=== PATIENT | female | born 1960 | race Caucasian/White ===

== ENCOUNTER 2017-11-01 10:30 | Outpatient (RCR) | payer OTHER, SELFPAY | END 2017-11-01 23:59 | LOC: PT 10:30 | PROVIDERS: Visit Provider Nurse Practitioner | DX: M54.2 Cervicalgia (principal); M25.511 Pain in right shoulder | CPT/HCPCS: 97010; 97012; 97014; 97035; 97110; 97140; 97161; G0283 ==

== ENCOUNTER 2017-11-07 08:30 | Outpatient (RCR) | payer OTHER, SELFPAY | END 2017-11-07 23:59 | LOC: PT 08:30 | PROVIDERS: Visit Provider Nurse Practitioner | DX: M54.2 Cervicalgia (principal); M25.511 Pain in right shoulder | CPT/HCPCS: 97010; 97012; 97014; 97033; 97035; 97140; G0283 ==

== ENCOUNTER 2017-11-09 20:02 | Emergency (ER) | payer OTHER, SELFPAY ==
[2017-11-09 20:37] VITALS: BP 156/98; PULSE 114; RESP 20; TEMP 36.6; O2SAT 97; BMI 40.4
[2017-11-09 20:49] LABS: UTC Influenza A Antigen Negative (Negative); UTC Influenza B Antigen Negative (Negative)
--- NOTE | 2017-11-09 21:11 | HMH.EDUTC ---
[facility] – [place] Disposition Clinical Impression: Viral illness Disposition: Home, Self-Care Condition on Discharge: Good Instructions: DI for Viral Syndrome Additional Instructions: * No sign of bacterial infection. Likely viral. Flu negative. Virus can take 7-14 days to run their course * Monitor Temp. Tylenol every 4 hours as needed no more then 5 times a day or 4000mg in 24 hours and/or ibuprofen every 6 hours as needed no more then 3200mg in 24 hours (as long as your primary care doctor has told you that it is ok to take both) for fever/aches/pain. ER if fever no less than 101 despite tylenol and ibuprofen * Encourage fluids, water, gatorade, powerade, pedialyte if infant/toddler/child * warm salt water gargles * warm fluids * sore throat lozenges * sleep elevated * humidifier/vaporizer * Claritin 10mg daily may help w/ fluid behind ear * * Your throat swab was sent for culture. Those results are typically sent to your primary care. Be sure to follow up in 2-3 days if no improvement so they can review those results and treat if necessary. If you don't have primary care, I recommend you get one but in the mean time, you will have to return to a walk in clinic Referrals: Ray Lopez MD [Primary Care Provider] - (IMMEDIATELY for new or worsening symptoms OR no noticeable improvement over the next 48-72 hours. 911 for difficulty breathing or swallowing.) Time of Disposition: 21:36 Medical Decision Making Vital Signs: 11/09/17 20:37 Temperature 97.8 F Temperature Source Temporal Artery Scan Pulse Rate [Brachial] 114 H Respiratory Rate 20 Blood Pressure [Left Arm] 156/98 Blood Pressure Mean [Left Arm] 117 Blood Pressure Source [Left Arm] Automatic Cuff Blood Pressure Position [Left Arm] Sitting 02 Sat by Pulse Oximetry 97 Oxygen Delivery Method Room Air - Lab Data Lab Results 11/09/17 20:42: Influenza Type A Ag Negative, Influenza Type B Ag Negative - Matty Inquiry Pt receiving controlled substance: No [facility] [place] HPI - General Stated complaint: Congestion, aching all over Time Seen by Provider: 11/09/17 20:40 Mode of Arrival: Ambulatory Source of Information: Patient Limitations: No Limitations Description of Symptoms (Recalled from Triage Doc. by RN): ACHES,CHILLS, SORE THROAT AND EAR PAIN HEENT Symptoms (Recalled from RN notes): Yes Resp Symptoms (Recalled from RN notes): Yes Skin Symptoms (Recalled from RN notes): No MS Symptoms (Recalled from RN notes): No Functional Status (Recalled from RN notes): NA - History of Present Illness Provider Complaint: c/o right ear and throat pain. I think it might be sinuses but want to rule out flu and strep . Woke up with this today. No treatment. Throat constantly sore all day. Described as just feel like drainage running down it . Feeling achy tonight but also aches d/t a pinch nerve. this feels different though. I don't normally chill like this evening. No known sick contacts. - Related Data Home Medications Medication Instructions Recorded Confirmed Ixekizumab [Taltz Syringe] 80 mg SQ MONTHLY 11/09/17 11/09/17 Allergies Allergy/AdvReac Type Severity Reaction Status Date / Time PREDNISONE Allergy Unknown MAKES Uncoded 10/22/17 14:29 PSORIASIS WORSE - Worker's Comp Is this a Worker's Comp case?: No [facility] History I have reviewed the patient's past medical history: Yes Medical History: Denies:: Chronic Obstructive Pulmonary Disease (COPD), Diabetes Mellitus Type 1, Diabetes Mellitus Type 2, Hypertension Comment: psoriatic arthritis Other Surgeries: Yes: Other (hysterectomy) - *Social History Alcohol Intake: never - Psychiatric History Expresses thoughts of harming self/others: None Suicide Plan Description: No Plan ROS Obtained: Yes Appropriate systems reviewed & no add complaints except as noted - Constitutional Reports body ache(s), Reports chills, Denies anorexia, Denies fatigue, Denies fever(s) - Eyes Denies dischar
--- NOTE | 2017-11-09 21:16 | ED_ITS ---
[facility] [place] Clinical Impression: Viral illness Disposition: Home, Self-Care Condition on Discharge: Good Instructions: DI for Viral Syndrome Additional Instructions: * No sign of bacterial infection. Likely viral. Flu negative. Virus can take 7- 14 days to run their course * Monitor Temp. Tylenol every 4 hours as needed no more then 5 times a day or 4000mg in 24 hours and/or ibuprofen every 6 hours as needed no more then 3200mg in 24 hours (as long as your primary care doctor has told you that it is ok to take both) for fever/aches/pain. ER if fever no less than 101 despite tylenol and ibuprofen * Encourage fluids, water, gatorade, powerade, pedialyte if /toddler/ child * warm salt water gargles * warm fluids * sore throat lozenges * sleep elevated * humidifier/vaporizer * Claritin 10mg daily may help w/ fluid behind ear * * Your throat swab was sent for culture. Those results are typically sent to your primary care. Be sure to follow up in 2-3 days if no improvement so they can review those results and treat if necessary. If you don't have primary care , I recommend you get one but in the mean time, you will have to return to a walk in clinic Referrals: Ray Lopez MD [Primary Care Provider] - (IMMEDIATELY for new or worsening symptoms OR no noticeable improvement over the next 48-72 hours. 911 for difficulty breathing or swallowing.) Time of Disposition: 21:36 Medical Decision Making Vital Signs: 11/09/17 20:37 Temperature 97.8 F Temperature Source Temporal Artery Scan Pulse Rate [Brachial] 114 H Respiratory Rate 20 Blood Pressure [Left Arm] 156/98 Blood Pressure Mean [Left Arm] 117 Blood Pressure Source [Left Arm] Automatic Cuff Blood Pressure Position [Left Arm] Sitting 02 Sat by Pulse Oximetry 97 Oxygen Delivery Method Room Air - Lab Data Lab Results 11/09/17 20:42: Influenza Type A Ag Negative, Influenza Type B Ag Negative - Matty Inquiry Pt receiving controlled substance: No [facility] [place] - General Stated complaint: Congestion, aching all over Time Seen by Provider: 11/09/17 20:40 Mode of Arrival: Ambulatory Source of Information: Patient Limitations: No Limitations Description of Symptoms (Recalled from Triage Doc. by RN): ACHES,CHILLS, SORE THROAT AND EAR PAIN HEENT Symptoms (Recalled from RN notes): Yes Resp Symptoms (Recalled from RN notes): Yes Skin Symptoms (Recalled from RN notes): No MS Symptoms (Recalled from RN notes): No Functional Status (Recalled from RN notes): NA - History of Present Illness Provider Complaint: c/o right ear and throat pain. I think it might be sinuses but want to rule out flu and strep . Woke up with this today. No treatment. Throat constantly sore all day. Described as just feel like drainage running down it . Feeling achy tonight but also aches d/t a pinch nerve. this feels different though. I don't normally chill like this evening. No known sick contacts. - Related Data Home Medications Medication Instructions Recorded Confirmed Ixekizumab [Taltz Syringe] 80 mg SQ MONTHLY 11/09/17 11/09/17 Allergies Allergy/AdvReac Type Severity Reaction Status Date / Time PREDNISONE Allergy Unknown MAKES Uncoded 10/22/17 14:29 PSORIASIS WORSE - Worker's Comp Is this a Worker's Comp case?: No [facility] History I have reviewed the patient's past medical history: Yes
[2017-11-09 21:45] LABS: UTC Strep Screen (Rapid) Negative (Negative)
== END 2017-11-09 21:51 | disposition home or self-care (01) ==
PROVIDERS: Emergency Provider Nurse Practitioner Family; PCP Family Medicine
DX: B34.9 Viral infection, unspecified (principal); L40.50 Arthropathic psoriasis, unspecified
CPT/HCPCS: 87276; 87430; 87804; 87880; 99202

== ENCOUNTER → 2017-11-15 09:12 | Outpatient (CLI) | payer OTHER, SELFPAY | PROVIDERS: PCP Family Medicine; Visit Provider Nurse Practitioner | DX: M25.511 Pain in right shoulder (principal) ==

== ENCOUNTER → 2017-11-28 09:25 | Outpatient (CLI) | payer OTHER, SELFPAY ==
--- NOTE | 2017-11-28 09:33 | MR_ITS ---
MR cervical spine wo con HISTORY: Right-sided neck and shoulder and scapular pain ITS.REASON: CERVICALGIA ORDERING PHYSICIAN: Liliana Langford PATIENT AGE: 56 years COMPARISON: None TECHNIQUE: Standard multiplanar multiecho sequences are performed without contrast. 3-D MIP and myelographic images are also rendered and reviewed FINDINGS: There is normal alignment. The craniocervical junction has an unremarkable appearance. C2-C3: Unremarkable. C3-C4: Unremarkable. C4-C5: Unremarkable. C5-C6: Mild degenerative disc disease with minimal bulging disc with minimal central disc protrusion and borderline narrowing of the canal. No cord impingement. C6 C7: Degenerative disc disease with bulging disc with endplate osteophytes. There is bilateral uncovertebral hypertrophy and there is a small broad-based left paracentral disc protrusion/disc osteophyte complex causing left lateral recess and foraminal narrowing. There is a small right lateral foraminal disc protrusion as well best detected on the sagittal images. There is narrowing of the canal at this level. C7-T1: Unremarkable. IMPRESSION: 1. C5-C6: Mild degenerative disc disease with minimal bulging disc with minimal central disc protrusion and borderline narrowing of the canal. No cord impingement. 2. C6 C7: Degenerative disc disease with bulging disc with endplate osteophytes. There is bilateral uncovertebral hypertrophy and there is a small broad-based left paracentral disc protrusion/disc osteophyte complex causing left lateral recess and foraminal narrowing. There is a small right lateral foraminal disc protrusion as well best detected on the sagittal images. There is narrowing of the canal at this level with mild flattening of the anterior aspect of the cord on the left. 3. Otherwise negative MRI of the cervical spine
== END ==
PROVIDERS: PCP Family Medicine; Visit Provider Nurse Practitioner
DX: M54.2 Cervicalgia (principal)
CPT/HCPCS: 72141

== ENCOUNTER → 2018-08-05 08:06 | Outpatient (POV) | payer OTHER, SELFPAY | PROVIDERS: PCP Family Medicine; Visit Provider Dermatology | DX: Z00.00 Encounter for general adult medical examination without abnormal findings (principal) ==

== ENCOUNTER → 2019-02-10 08:05 | Outpatient (POV) | payer OTHER, SELFPAY | PROVIDERS: Visit Provider Dermatology | DX: Z00.00 Encounter for general adult medical examination without abnormal findings (principal) ==

== ENCOUNTER → 2019-03-31 07:54 | Outpatient (POV) | payer OTHER, SELFPAY | PROVIDERS: Visit Provider Dermatology | DX: Z00.00 Encounter for general adult medical examination without abnormal findings (principal) ==

== ENCOUNTER → 2019-08-31 15:54 | Outpatient (CLI) | payer OTHER, SELFPAY ==
--- NOTE | 2019-08-31 15:57 | MM_ITS ---
PROCEDURE: MM DIG SCREENING MAMM BI W/CAD CLINICAL INDICATION: SCREENING There is a history of breast cancer in the patient's maternal aunt. COMPARISON: [facility] DIG MAMM-SCREEN ARMEN from 10/29/2013 [facility] DIG MAMM-SCREEN ARMEN from 09/05/2015 [facility] DIG MAMM-SCREEN ARMEN W/CAD from 08/08/2017 TECHNIQUE: Standard CC and MLO images were obtained. R2 CAD reviewed. FINDINGS: Scattered diffuse fibroglandular densities are seen throughout both breasts. There are few benign-appearing microcalcifications in each breast. There are 2 stable benign-appearing nodular densities near the axillary tail right breast likely low-lying nodes. There is a stable round appearing density just deep to the nipple right breast. There is no suspicious lesion in either breast and no suspicious microcalcifications. IMPRESSION: Fibrofatty parenchyma with no suspicious lesions seen BI-RAD Category: 2 Benign Finding(s) FOLLOW-UP: 1YR 1 Year Follow-up (A letter has been sent to the patient regarding results of the study.) Dictated by: Dr. Abdiel Jane MD 09/02/2019 19:[address] Abdiel Jane MD in [place] 09/02/2019 19:24
== END ==
PROVIDERS: PCP Family Medicine; Visit Provider Family Medicine
DX: Z12.31 Encounter for screening mammogram for malignant neoplasm of breast (principal)
CPT/HCPCS: 77067

== ENCOUNTER 2019-11-03 09:00 | Outpatient (RCR) | payer OTHER, SELFPAY | END 2019-11-03 09:05 | disposition home or self-care (01) | LOC: PT 09:00 | PROVIDERS: PCP Family Medicine; Visit Provider Nurse Practitioner Women's Health | DX: M79.7 Fibromyalgia (principal) | CPT/HCPCS: 97010; 97012; 97014; 97110; 97140; 97163; G0283 ==

== ENCOUNTER → 2020-08-19 16:28 | Outpatient (CLI) | payer OTHER, SELFPAY ==
[2020-08-20 09:40] LABS: Covid-19 Nasal PCR Sendout UK NOT DETECTED
== END ==
PROVIDERS: PCP Family Medicine; Referring Provider Family Medicine; Visit Provider Family Medicine
DX: Z03.818 Encounter for observation for suspected exposure to other biological agents ruled out (principal)
CPT/HCPCS: U0003

== ENCOUNTER → 2020-09-01 08:09 | Outpatient (CLI) | payer OTHER, SELFPAY ==
--- NOTE | 2020-09-01 08:12 | MM_ITS ---
PROCEDURE: MM DIG SCREENING MAMM BI W/CAD Digital Breast Tomosynthesis Included CLINICAL INDICATION: SCREENING There is a history of breast cancer in the patient's maternal aunt. COMPARISON: MG [facility] DIG MAMM-SCREEN ARMEN from 09/05/2015 MG [facility]MSB DIG MAMM-SCREEN ARMEN W/CAD from 08/08/2017 MG MM DIG SCREENING MAMM BI W/CAD from 08/31/2019 TECHNIQUE: Standard CC and MLO images and 3D Tomosynthesis was obtained. R2 CAD reviewed. FINDINGS: Scattered fibroglandular densities are seen throughout both breasts. Again noted are the 2 tiny benign-appearing nodular densities axillary tail right breast. There are couple of benign-appearing microcalcifications left breast. There is faint arterial calcification left breast. There are no suspicious microcalcifications. IMPRESSION: Stable exam with no suspicious lesions seen BI-RAD Category: 2 Benign Finding(s) FOLLOW-UP: 1YR 1 Year Follow-up (A letter has been sent to the patient regarding results of the study.) Dictated by: Dr. Abdiel Jane MD 09/02/2020 09:48 Dr. Abdiel Jane MD in [place] 09/02/2020 09:48
== END ==
PROVIDERS: PCP Family Medicine; Visit Provider Family Medicine
DX: Z12.31 Encounter for screening mammogram for malignant neoplasm of breast (principal)
CPT/HCPCS: 77063; 77067

== ENCOUNTER → 2021-01-26 09:27 | Outpatient (CLI) | payer OTHER, SELFPAY ==
--- NOTE | 2021-01-26 09:31 | CT_ITS ---
PROCEDURE: CT ABDOMEN PELVIS W CON CLINICAL INDICATION: VAGINAL PAIN, S/P BLADDER REPAIR Llq pain x3wks COMPARISON: No exams were available for comparison TECHNIQUE: IV Contrast: 75ML Isovue 370 Oral Contrast None Axial images obtained with sagittal and coronal reformats. All CT scans at the facility use one or more dose reduction, viz: automated exposure control, ma/kV adjustment per patient size (including targeted exams where dose is matched to indication, i.e. head), or iterative reconstruction technique. FINDINGS: LOWER THORAX: There are mild atelectatic changes in the right lower lobe posteriorly ABDOMEN & PELVIS: Small nodular opacity is present anterior to liver at 1 cm may be due to small lymph node within the perihepatic fat. No focal liver lesion is evident. There is a 9 mm nodular area at the tip of the fundus of the gallbladder. Gallbladder ultrasound may provide further evaluation. This could even be due to collapsed mucosa. The spleen and adrenal glands are unremarkable. There are a few periportal lymph nodes measuring up to 3 x 1 cm. Unremarkable appearing pancreas. No renal or ureteral calculi. There is a small right renal cyst at 4 mm. No evidence of appendicitis. No intestinal obstruction or free air. There are a few colonic diverticula but no evidence of diverticulitis. Prior hysterectomy. No pelvic mass or abnormal fluid collection. Tiny umbilical hernia containing fat. No acute bony findings. IMPRESSION: 1. No acute finding. 2. There are few colonic diverticula but no evidence of diverticulitis 3. Nodular area at the fundus of the gallbladder. Suggest ultrasound for further evaluation. 4. Mildly prominent periportal lymph nodes nonspecific. Dictated by: Joe Carlson MD 01/27/2021 06:40 Joe Carlson MD in [place] 01/27/2021 06:40
== END ==
PROVIDERS: PCP Family Medicine; Visit Provider Nurse Practitioner Family
DX: R10.32 Left lower quadrant pain (principal); R10.2 Pelvic and perineal pain; Z98.890 Other specified postprocedural states; Z90.710 Acquired absence of both cervix and uterus
CPT/HCPCS: 74177; Q9967

== ENCOUNTER → 2021-02-07 07:36 | Outpatient (CLI) | payer OTHER, SELFPAY ==
--- NOTE | 2021-02-07 07:54 | US_ITS ---
PROCEDURE: US ABDOMEN LIMITED CLINICAL INDICATION: ABN CT SCAN Follow-up abnormal CT scan. Possible gallbladder nodule COMPARISON: CT CT ABDOMEN PELVIS W CON from 01/26/2021 FINDINGS: PANCREAS: Pancreatic tail is poorly demonstrated. The remaining pancreas has an unremarkable appearance. LIVER: Mild fatty liver. No focal liver lesions demonstrated. Homogeneous echogenicity. No intrahepatic biliary ductal dilatation evident. There is appropriate direction of blood flow within a non dilated portal vein RIGHT KIDNEY: Unremarkable. Normal size and echogenicity. No hydronephrosis GALLBLADDER: No gallstones are apparent. The CT scan suggested a nodule within the fundus of the gallbladder. This may however have been due to collapse mucosa as ultrasound does demonstrate a inferior projection of the gallbladder at this region. There does appear to be some sludge at this area. IMPRESSION: No obvious nodule of the gallbladder. No stones apparent. There does appear to be some sludge within the inferior extension of the gallbladder which may have been the cause of the CT abnormality. Dictated by: Joe Carlson MD 02/09/2021 13:30 Joe Carlson MD in [place] 02/09/2021 13:30
== END ==
PROVIDERS: PCP Family Medicine; Visit Provider Nurse Practitioner Family
DX: R93.89 Abnormal findings on diagnostic imaging of other specified body structures (principal)
CPT/HCPCS: 76705

== ENCOUNTER → 2021-02-25 08:12 | Outpatient (CLI) | payer OTHER, SELFPAY ==
[2021-02-25 11:15] LABS: Coronavirus 19 IgG Antibody Negative (Negative); Coronavirus 19 IgM Antibody Negative (Negative)
== END ==
PROVIDERS: Visit Provider Internal Medicine Gastroenterology
DX: Z01.812 Encounter for preprocedural laboratory examination (principal); Z11.52 Encounter for screening for COVID-19; Z12.11 Encounter for screening for malignant neoplasm of colon
CPT/HCPCS: 36415; 86328

== ENCOUNTER 2021-02-27 09:49 | Day surgery (SDC) | payer OTHER, SELFPAY ==
[2021-02-21 13:08] VITALS: BMI 37.4
[2021-02-27 10:04] VITALS: BP 135/90; PULSE 78; RESP 18; TEMP 36.6; O2SAT 97
--- NOTE | 2021-02-27 11:46 | P.PCN_ITS ---
[facility] Procedure Note Procedure Note:: Colonoscopy Procedure Report: Colonoscopy with cold snare polypectomy and monopolar ablation/coagulation of internal hemorrhoids Endoscopist: Gunner Estrella II, MD Referring physician: ALYX Goodman Date of Procedure: February 27, 2021 Equipment: Olympus 190 variable stiffness pediatric colonoscope Sedation: MAC sedation Indication: Mrs. Maldonado is a 60-year-old female who has had left lower quadrant abdominal pain as well as a change in bowel habits. Her bowel movements are thinner (skinnier). She does have some excessive wiping. She reports no constipation. She has had some intentional weight loss. She does state that her father had colon cancer at the age of 48. She has had some occasional rectal bleeding which may be attributable to the internal hemorrhoids. Her last colonoscopy was 8 to 10 years ago. Procedure: Prior to the procedure, a history and physical exam was performed, and patient's medications and allergies were reviewed. The risks, benefits and alternatives of the sedation and procedure were discussed with the patient. All questions were answered and informed consent was obtained. The patient was brought to the procedure room. Patient identification and proposed procedure were verified by the physician and the nurse. The patient was placed in a left lateral decubitus position and the scope was passed under direct vision. Throughout the procedure, the patient's blood pressure, pulse, and oxygen saturations were monitored continuously. The colonoscopy was accomplished without difficulty. The patient tolerated the procedure well. Findings: On digital rectal examination there was normal rectal tone. There were no external hemorrhoids. The colonoscope was introduced through the anal canal to the rectum and advanced to the cecum. The ileocecal valve and appendiceal orifice were identified. The scope was advanced a short distance into the ileum which appeared grossly normal. The scope was then withdrawn into the colon. There were 2 colon polyps (ascending x1 (3 to 4 mm) and descending (5 mm)) which were removed via cold snare polypectomy. The remaining cecum, ascending and transverse colon and mucosa were grossly normal. There were scattered diverticuli throughout the descending and sigmoid colon (LEFT colon). The rectum itself was normal. Upon retroflexion within the rectum there were grade 2 internal hemorrhoids. 3 columns of hemorrhoids were ablated/coagulated using monopolar ablation to destruction. The preparation was excellent throughout with Redmond Preparation Score of 9. The cecal time was 12 minutes. Impression: 1. Diminutive colonic polyps x2 2. Left-sided diverticulosis 3. Grade 2 internal hemorrhoids status post monopolar ablation/coagulation Plan: I will follow up the polyp histology and recommend repeat screening/surveillance colonoscopy again in 5 years based upon her family history and polyps. I would encourage bulk fiber supplementation on a long-term daily maintenance basis.
[2021-02-27 11:48] VITALS: BP 113/64; PULSE 74; RESP 12; TEMP 36.6; O2SAT 95
[2021-02-27 11:58] VITALS: BP 106/61; PULSE 67; RESP 12; O2SAT 94
[2021-02-27 12:08] VITALS: BP 103/83; PULSE 67; RESP 16; O2SAT 95
[2021-02-27 12:18] VITALS: BP 135/83; PULSE 74; RESP 16; TEMP 36.6; O2SAT 97
--- NOTE | 2021-02-27 15:37 | P.PN_ITS ---
[facility] Anesthesia Checklist - Patient Identification Patient Identification: Arm Band - Structural Data Admitted From: Home Planned Operative Procedure/s: Colonoscopy Consent for Planned Operative Procedure(s) Verified: Yes Verified Documents: Surgical Consent, History and Physical - NPO Status Verified Time NPO: 00:00 - Airway Assessment C-Spine Mobility Assessed: Yes TMJ Mobility Assessed: Yes Dentition: Good Dentition - Neurological Assessment Level of Consciousness: Awake, Alert - Anesthesia Plan Anesthesia Risk discussed: Yes Anesthesia Plan: Verified ASA Class: III Anesthesia Type: MAC [facility] History Medical History: Denies:: Cancer, Chronic Obstructive Pulmonary Disease (COPD), Diabetes Mellitus Type 1, Diabetes Mellitus Type 2, Hypertension, Internal Pacemaker, MRSA, Seizures *Have you ever received a pneumonia vaccine?: Yes *Have you received a flu vaccine this season?: No Anesthesia experience/problems:: None Other Surgeries: Yes: Other. No: Pacemaker Amputation: No Fractures: No - *Social History Last grade of school completed: Advanced degree Smoking Status: Never smoker Alcohol Intake: never Alcohol Intake Frequency:: holidays/special occasions only Substance Use Type: denies use *Occupational Status:: employed Housing: house Household Members: spouse *Travel in the last 8 weeks: None Family Hx:: Cancer
== END 2021-02-27 12:19 | disposition home or self-care (01) ==
LOC: OUTP 09:51
PROVIDERS: PCP Nurse Practitioner Family; Visit Provider Internal Medicine Gastroenterology
PROC: 0DJD8ZZ Inspection of Lower Intestinal Tract, Via Natural or Artificial Opening Endoscopic (ICD-10-PCS; CPT 45378; principal; 2021-02-27 11:00)
DX: Z80.0 Family history of malignant neoplasm of digestive organs (principal); K63.5 Polyp of colon; K57.30 Diverticulosis of large intestine without perforation or abscess without bleeding; K64.1 Second degree hemorrhoids; F41.9 Anxiety disorder, unspecified; Z79.899 Other long term (current) drug therapy
CPT/HCPCS: 45385; 46930

== ENCOUNTER 2022-01-28 22:18 | Emergency (ER) | payer OTHER, SELFPAY ==
[2022-01-28 22:19] VITALS: BP 132/75; PULSE 88; RESP 18; TEMP 36.4; O2SAT 98; BMI 41.1
--- NOTE | 2022-01-28 22:53 | CT_ITS ---
PROCEDURE INFORMATION: Exam: CT Abdomen And Pelvis With Contrast Exam date and time: 01/28/2022 11:39 PM Age: 61 years old Clinical indication: Nausea and vomiting and other: Diarrhea; Prior surgery; Surgery date: 6+ months; Surgery type: Hysterectomy; Additional info: Abdominal pain nausea vomiting diarrhea TECHNIQUE: Imaging protocol: Computed tomography of the abdomen and pelvis with contrast. Radiation optimization: All CT scans at this facility use at least one of these dose optimization techniques: automated exposure control; mA and/or kV adjustment per patient size (includes targeted exams where dose is matched to clinical indication); or iterative reconstruction. Contrast material: ISOVUE; Contrast volume: 75 ml; Contrast route: IV; COMPARISON: CT ABDOMEN PELVIS W CON 01/26/2021 9:42 AM FINDINGS: Lungs: 0.4 cm solid nodule in the left lower lobe. Bibasilar probable atelectasis. Liver: No suspicious mass. Gallbladder and bile ducts: No calcified stones. No ductal dilation. Pancreas: No ductal dilation. No peripancreatic inflammatory changes. Spleen: Unremarkable. Adrenal glands: No mass. Kidneys and ureters: No hydronephrosis. Unremarkable renogram. Stomach and bowel: Colonic diverticulosis without evidence of acute diverticulitis. Appendix: The appendix is not identified, but there is no pericecal inflammatory changes. Intraperitoneal space: No free air. No ascites. Vasculature: Atherosclerotic calcifications. Lymph nodes: No enlarged lymph nodes. Urinary bladder: Small amount of air in the urinary bladder, probably due to instrumentation. Reproductive: Hysterectomy. Bones/joints: No suspicious osseous lesion. No acute fracture. Scattered degenerative changes. Soft tissues: No suspicious mass. IMPRESSION: No CT evidence of acute intra-abdominal process. 0.4 cm solid nodule in the left lower lobe. For patients at low risk (minimal or absent history of smoking and of other known risk factors), no routine follow-up is indicated. For patients at high risk (history of smoking or of other known risk factors), consider optional CT Chest at 12 months. (Reference: Angie) References: Angie López et al. Guidelines for Management of Incidental Pulmonary Nodules Detected on CT Images: From the Fleischner Society 2017. Radiology. 2017;284(1):228-243.
[2022-01-28 22:56] LABS: Microscopic, Urine URINE MICROSCOPIC (MICROSCOPIC)
--- NOTE | 2022-01-28 23:07 | HMH.EDNVD ---
ED Disposition Clinical Impression: Abdominal pain Qualifiers: Abdominal location: epigastric Qualified Code(s): R10.13 - Epigastric pain Leukocytosis (leucocytosis) Qualifiers: Leukocytosis type: unspecified Qualified Code(s): D72.829 - Elevated white blood cell count, unspecified Disposition: Home, Self-Care Condition on Discharge: Good Instructions: DI for Nausea -- Adult Additional Instructions: call pcp and consider egd and gb eval Prescriptions: Ondansetron [Zofran 4mg ODT] 4 mg PO TIDP PRN #30 tab PRN Reason: Nausea And Vomiting Transmission Status: Pending to [facility] Referrals: Inez Hart APRN [Primary Care Provider] - - Critical Care Critical Care Time: No Attestation: On 01/28/22, the high probability of a clinically significant, sudden or life threatening deterioration of the following system(s) required my full and direct attention, intervention and personal management. The time I documented below is in addition to time spent performing reported procedures but includes the following listed in this critical care notation. Medical Decision Making - Medical Records Medical records reviewed: Yes: I reviewed the patient's medical records. - Matty Inquiry Pt receiving controlled substance: No Vital Signs: 01/28/22 22:19 01/28/22 23:30 01/29/22 00:00 Temperature 97.6 F Temperature Source Oral Pulse Rate 86 86 Pulse Rate [Left Radial] 88 Respiratory Rate 18 Blood Pressure 124/87 132/81 Blood Pressure [Right Arm] 132/75 Blood Pressure Mean [Right Arm] 94 Blood Pressure Position [Right Arm] Sitting 02 Sat by Pulse Oximetry 98 98 99 Oxygen Delivery Method Room Air Room Air Room Air 01/29/22 00:31 01/29/22 01:00 01/29/22 01:30 Temperature Temperature Source Pulse Rate 81 84 78 Pulse Rate [Left Radial] Respiratory Rate Blood Pressure 145/74 H 129/69 146/81 H Blood Pressure [Right Arm] Blood Pressure Mean [Right Arm] Blood Pressure Position [Right Arm] 02 Sat by Pulse Oximetry 97 98 98 Oxygen Delivery Method Room Air Room Air Room Air - Lab Data Lab results reviewed: Yes: I reviewed the patient's lab results. Lab Results 01/28/22 22:37: Urine Color Yellow, Urine Appearance Clear, Urine pH 5.5, Ur Specific Mal[place] >= 1.030, Urine Protein Trace, Urine Glucose (UA) Negative, Urine Ketones Negative, Urine Blood Negative, Urine Nitrate Negative, Urine Bilirubin Negative, Urine Urobilinogen 0.2, Ur Leukocyte Esterase Negative, Urine WBC 3-5, Ur Squamous Epith Cells 10-20 01/28/22 22:46: WBC 20.5 H*, RBC 6.01 H, Hgb 15.9, Hct 49.1 H, MCV 81.8, MCH 26.5 L, MCHC 32.3, RDW 14.6, Plt Count 493 H, MPV 8.0, Neut % (Auto) 78.5, Lymph % (Auto) 17.8, [place] % (Auto) 2.6, Eos % (Auto) 0.5, Baso % (Auto) 0.6, Neut # (Auto) 16.1 H, Lymph # (Auto) 3.6, [place] # (Auto) 0.5, Eos # (Auto) 0.1, Baso # (Auto) 0.1, Total Counted 100, Neutrophils % (Manual) 78 H, Band Neutrophils % 6.0, Lymphocytes % (Manual) 14, Monocytes % (Manual) 2, Platelet Estimate Normal, RBC Morphology Normal, ESR 5 01/28/22 22:46: Sodium 138, Potassium 3.8, Chloride 101, Carbon Dioxide 26, Anion Gap 14.8, BUN 14, Creatinine 0.80, Estimated Creat Clear 102, Estimated GFR 73, Est GFR ( Amer) 88, Glucose 160 H, Calcium 9.3, Total Bilirubin 0.8, AST 25, ALT 20, Alkaline Phosphatase 107, C-Reactive Protein 20.2 H, Total Protein 8.2, Albumin 4.5, Globulin 3.7 H, Albumin/Globulin Ratio 1.2, Procalcitonin 0.059 01/28/22 22:46: Amylase 79, Lipase 93 Result diagrams: 01/28/22 22:46 01/28/22 22:46 Orders (Tests/Meds): ED MEDICATIONS Generic Name Dose Route Start Last Admin Trade Name Freq PRN Reason Stop Dose Admin Sodium Chloride 1,000 mls @ 999 mls/hr 01/28/22 23:00 01/28/22 23:14 Sod Chlor 0.9% 1000ml Bag IV 01/29/22 00:00 999 mls/hr .Q1H1M SALLY Administration Sodium Chloride 1,000 mls @ 999 mls/hr 01/28/22 23:45 01/29/22 00:59 Sod Chlor 0.9% 1000ml Bag IV
[2022-01-28 23:11] LABS: Appearance,Urine CLEAR (Clear); Bilirubin,Urine Negative (Negative); Blood, Urine Negative (Negative); Color,Urine YELLOW (Yellow); Glucose,Urine (UA) Negative (Negative); Ketones,Urine Negative (Negative); Leukocyte Esterase,Urine Negative (Negative); Nitrate,Urine Negative (Negative); PH,Urine 5.5 (5.0-8.5); Protein,Urine TRACE (Negative); Specific Gravity, Urine >= 1.030 (1.005-1.030); Urobilinogen,Urine 0.2 EU/dl (0.2)
[2022-01-28 23:22] LABS: Basophils # 0.1 K/mm3 (0-0.2); Basophils % 0.6 % (0.1-2.0); Eosinophils # 0.1 K/mm3 (0.0-0.4); Eosinophils % 0.5 % (0.1-12.0); Hematocrit 49.1 % (37.0-47.0); Hemoglobin 15.9 g/dL (12.2-16.2); Lymphocytes # 3.6 K/mm3 (0.7-4.5); Lymphocytes % 17.8 % (10-50); Mean Corpuscular HGB Conc 32.3 g/dL (31.8-35.4); Mean Corpuscular Hemoglobin 26.5 pg (27.0-31.2); Mean Corpuscular Volume 81.8 fl (81-99); Monocytes # 0.5 K/mm3 (0.1-1.0); Monocytes % 2.6 % (1.7-9.3); Neutrophils # 16.1 K/mm3 (1.8-7.8); Neutrophils % 78.5 % (37.0-80.0); Platelet Count 493 K/mm3 (142-424); Red Blood Count 6.01 M/mm3 (4.20-5.40); Red Cell Distribution Width 14.6 % (11.5-17.5)
[2022-01-28 23:28] LABS: White Blood Count 20.5 K/mm3 (4.8-10.8)
[2022-01-28 23:29] LABS: MANUAL DIFFERENTIAL MANUAL DIFFERENTIAL (MANUAL DIFF)
[2022-01-28 23:30] VITALS: BP 124/87; PULSE 86; O2SAT 98
[2022-01-28 23:34] LABS: Alanine Aminotransferase 20 U/L (12-78); Albumin Level 4.5 g/dl (3.5-5.0); Albumin/Globulin Ratio 1.2 (1.1-1.8); Alkaline Phosphatase 107 U/L (38-126); Anion Gap 14.8 mEq/L (5-15); Aspartate Amino Transferase 25 U/L (14-36); Bilirubin,Total 0.8 mg/dl (0.2-1.3); Blood Urea Nitrogen 14 mg/dl (7-17); Calcium 9.3 mg/dl (8.4-10.2); Carbon Dioxide 26 mmol/L (22.0-30.0); Chloride 101 mmol/L (98-107); Creatinine Clearance Estimated 102 mL/min (50-200); Estimated Glomerular Filt Rate 73 ml/min (>60); GFR (African American) 88 ML/MIN (>60); Globulin 3.7 g/dL (1.3-3.2); Glucose 160 mg/dl (74-100); Potassium 3.8 mmoL/L (3.5-5.1); Sodium 138 mmol/L (136-145); Total Protein,Serum 8.2 g/dl (6.3-8.2)
[2022-01-28 23:40] LABS: C-Reactive Protein 20.2 mg/L (0-4); Lymphocytes % 14 % (10-50); Monocytes % 2 % (2-9); Neutrophils % 78 % (42-76); Platelet Estimate Normal; RBC Morphology Normal; Total Cells Counted 100
[2022-01-28 23:53] LABS: Amylase 79 U/L (30-110); Lipase 93 U/L (23-300)
[2022-01-28 23:59] LABS: Erythrocyte Sedimentation Rate 5 mm/hr (0-30)
[2022-01-29] VITALS: BP 132/81; PULSE 86; O2SAT 99
[2022-01-29 00:31] VITALS: BP 145/74; PULSE 81; O2SAT 97
[2022-01-29 00:39] LABS: Procalcitonin 0.059 ng/mL (0.0-2.0)
[2022-01-29 01:00] VITALS: BP 129/69; PULSE 84; O2SAT 98
[2022-01-29 01:30] VITALS: BP 146/81; PULSE 78; O2SAT 98
[2022-01-29 02:00] VITALS: BP 144/80; PULSE 81; O2SAT 98
[2022-01-29 02:31] VITALS: BP 154/73; PULSE 85; RESP 18; TEMP 36.8; O2SAT 98
== END 2022-01-29 02:34 | disposition home or self-care (01) ==
PROVIDERS: Emergency Provider Emergency Medicine; PCP Nurse Practitioner Family
DX: R10.13 Epigastric pain (principal); R11.2 Nausea with vomiting, unspecified; L40.50 Arthropathic psoriasis, unspecified
CPT/HCPCS: 74177; 80053; 81001; 82150; 83690; 84145; 85007; 85025; 85651; 86140; 96360; 96361; 96365; 96375; 99284; J2405; Q9967

== ENCOUNTER → 2022-01-30 09:40 | Outpatient (CLI) | payer OTHER, SELFPAY ==
[2022-01-30 10:56] LABS: Basophils # 0.1 K/mm3 (0-0.2); Basophils % 0.8 % (0.1-2.0); Eosinophils # 0.1 K/mm3 (0.0-0.4); Eosinophils % 1.5 % (0.1-12.0); Hematocrit 44.9 % (37.0-47.0); Hemoglobin 14.1 g/dL (12.2-16.2); Lymphocytes # 2.8 K/mm3 (0.7-4.5); Lymphocytes % 31.2 % (10-50); Mean Corpuscular HGB Conc 31.5 g/dL (31.8-35.4); Mean Corpuscular Hemoglobin 26.3 pg (27.0-31.2); Mean Corpuscular Volume 83.5 fl (81-99); Mean Platelet Volume 8.6 fl (7.4-10.4); Monocytes # 0.4 K/mm3 (0.1-1.0); Neutrophils # 5.7 K/mm3 (1.8-7.8); Neutrophils % 62.5 % (37.0-80.0); Platelet Count 417 K/mm3 (142-424); Red Blood Count 5.37 M/mm3 (4.20-5.40); Red Cell Distribution Width 14.9 % (11.5-17.5)
[2022-01-30 11:17] LABS: Alanine Aminotransferase 16 U/L (12-78); Albumin/Globulin Ratio 1.3 (1.1-1.8); Alkaline Phosphatase 80 U/L (38-126); Amylase 83 U/L (30-110); Anion Gap 9.1 mEq/L (5-15); Aspartate Amino Transferase 18 U/L (14-36); Bilirubin,Total 0.9 mg/dl (0.2-1.3); Blood Urea Nitrogen 12 mg/dl (7-17); Calcium 8.9 mg/dl (8.4-10.2); Carbon Dioxide 28 mmol/L (22.0-30.0); Chloride 106 mmol/L (98-107); Estimated Glomerular Filt Rate 73 ml/min (>60); GFR (African American) 88 ML/MIN (>60); Globulin 3.1 g/dL (1.3-3.2); Glucose 100 mg/dl (74-100); Lipase 306 U/L (23-300); Potassium 4.1 mmoL/L (3.5-5.1); Sodium 139 mmol/L (136-145); Total Protein,Serum 7.1 g/dl (6.3-8.2)
== END ==
PROVIDERS: PCP Nurse Practitioner Family; Visit Provider Nurse Practitioner Family
DX: R11.2 Nausea with vomiting, unspecified (principal); R19.7 Diarrhea, unspecified; D72.829 Elevated white blood cell count, unspecified
CPT/HCPCS: 36415; 80053; 82150; 83690; 85025

== ENCOUNTER → 2022-02-02 08:19 | Outpatient (CLI) | payer OTHER, SELFPAY ==
[2022-02-02 08:29] LABS: Adenovirus F 40/41, stool Not Detected (NotDetected); Astrovirus Not Detected (NotDetected); Campylobacter Not Detected (NotDetected); Clostridium Difficile A/B, PCR Not Detected (NotDetected); Cryptosporidium Not Detected (NotDetected); Cyclospora Cayetanesis Not Detected (NotDetected); Entamoeba histolytica Not Detected (NotDetected); Enteroaggregative E coli Not Detected (NotDetected); Enteropathogenic E coli Not Detected (NotDetected); Enterotoxigenic E coli Not Detected (NotDetected); Giardia lamblia Not Detected (NotDetected); Norovirus Not Detected (NotDetected); Plesimonas Shigalloides, PCR Not Detected (NotDetected); Rotavirus A Not Detected (NotDetected); Salmonella, PCR Not Detected (NotDetected); Sapovirus Not Detected (NotDetected); Shiga-like toxin E coli Not Detected (NotDetected); Shigella Enterovasive E coli Not Detected (NotDetected); Vibrio Cholerae Not Detected (NotDetected); Vibrio, PCR Not Detected (NotDetected); Yersinia Entercolitica, PCR Not Detected (NotDetected)
== END ==
PROVIDERS: Visit Provider Nurse Practitioner Family
DX: R19.7 Diarrhea, unspecified (principal)
CPT/HCPCS: 87507

== ENCOUNTER → 2022-02-09 08:58 | Outpatient (CLI) | payer OTHER, SELFPAY ==
--- NOTE | 2022-02-09 09:03 | US_ITS ---
FINAL REPORT CLINICAL HISTORY: UPPER ABD PAIN,N/V FINDINGS: RIGHT UPPER QUADRANT ULTRASOUND Sonographic images of the right upper quadrant were obtained. The pancreas is partially obscured. There is fatty infiltration of the liver. The gallbladder appears normal without evidence of gallstones. The common duct measures 4 mm. The right kidney measures 10.1 cm. IMPRESSION: Fatty liver. Reviewed, Interpreted and Dictated by Camden Broderick III, MD Transcribed by Corazon Solomon Authenticated by Camden Broderick III, MD on 02/09/2022 12:17:54 PM [facility]
== END ==
PROVIDERS: PCP Nurse Practitioner Family; Visit Provider Nurse Practitioner Family
DX: R10.10 Upper abdominal pain, unspecified (principal); R11.2 Nausea with vomiting, unspecified
CPT/HCPCS: 76705

== ENCOUNTER 2023-03-13 08:00 | Outpatient (RCR) | payer OTHER, SELFPAY | END 2023-03-13 08:05 | disposition home or self-care (01) | LOC: PT 08:00 | PROVIDERS: PCP Nurse Practitioner Family; Visit Provider Nurse Practitioner Family | DX: M25.511 Pain in right shoulder (principal) | CPT/HCPCS: 20560; 97010; 97014; 97163; G0283 ==

== ENCOUNTER → 2023-09-09 12:06 | Outpatient (CLI) | payer OTHER, SELFPAY ==
[2023-09-09 11:28] LABS: Alanine Aminotransferase 15 U/L (12-78); Albumin Level 4.3 g/dl (3.5-5.0); Albumin/Globulin Ratio 1.3 (1.1-1.8); Alkaline Phosphatase 108 U/L (38-126); Anion Gap 14.4 mEq/L (5-15); Aspartate Amino Transferase 19 U/L (14-36); Bilirubin,Total 0.9 mg/dl (0.2-1.3); Blood Urea Nitrogen 11 mg/dl (7-17); Calcium 9.2 mg/dl (8.4-10.2); Carbon Dioxide 26 mmol/L (22.0-30.0); Chloride 102 mmol/L (98-107); Chol/HDL Ratio 4.1 (1-3.5); Cholesterol 220 mg/dl (140-200); Estimated Glomerular Filt Rate 73 ml/min (>60); GFR (African American) 88 ML/MIN (>60); Globulin 3.4 g/dL (1.3-3.2); Glucose 107 mg/dl (74-100); HDL Cholesterol 54 mg/dl (40-60); Potassium 4.4 mmoL/L (3.5-5.1); Sodium 138 mmol/L (136-145); Total Protein,Serum 7.7 g/dl (6.3-8.2); Triglycerides 86 mg/dl (30-150); VLDL Cholesterol 17 mg/dL (0-40)
[2023-09-09 11:39] LABS: Direct LDL Cholesterol 141.31 mg/dL (100-129)
[2023-09-09 12:24] LABS: Hemoglobin A1C 5.9 % (4.0-6.0)
== END ==
PROVIDERS: PCP Nurse Practitioner Family; Visit Provider Nurse Practitioner Family
DX: R73.09 Other abnormal glucose (principal); N39.0 Urinary tract infection, site not specified; B96.89 Other specified bacterial agents as the cause of diseases classified elsewhere
CPT/HCPCS: 80053; 80061; 83036; 87086

== ENCOUNTER → 2023-11-03 11:44 | Outpatient (CLI) | payer OTHER, SELFPAY ==
[2023-11-03 11:56] LABS: MANUAL DIFFERENTIAL MANUAL DIFFERENTIAL (MANUAL DIFF)
[2023-11-03 12:11] LABS: Basophils # 0.2 K/mm3 (0-0.2); Basophils % 1.4 % (0.1-2.0); Eosinophils # 0.1 K/mm3 (0.0-0.4); Eosinophils % 1.1 % (0.1-12.0); Hematocrit 44.7 % (37.0-47.0); Hemoglobin 14.8 g/dL (12.2-16.2); Lymphocytes # 6.4 K/mm3 (0.7-4.5); Lymphocytes % 54.8 % (10-50); Mean Corpuscular HGB Conc 33.1 g/dL (31.8-35.4); Mean Corpuscular Volume 81.7 fl (81-99); Monocytes # 0.6 K/mm3 (0.1-1.0); Neutrophils # 4.4 K/mm3 (1.8-7.8); Neutrophils % 37.7 % (37.0-80.0); Platelet Count 376 K/mm3 (142-424); Red Blood Count 5.48 M/mm3 (4.20-5.40); Red Cell Distribution Width 14.5 % (11.5-17.5); White Blood Count 11.7 K/mm3 (4.8-10.8)
[2023-11-03 12:48] LABS: Erythrocyte Sedimentation Rate 13 mm/hr (0-30)
[2023-11-03 13:22] LABS: Chloride 103 mmol/L (98-107)
[2023-11-03 13:23] LABS: Sodium 140 mmol/L (136-145)
[2023-11-03 13:25] LABS: Alanine Aminotransferase 21 U/L (12-78); Aspartate Amino Transferase 22 U/L (14-36); Blood Urea Nitrogen 9 mg/dl (7-17); Estimated Glomerular Filt Rate 73 ml/min (>60); GFR (African American) 88 ML/MIN (>60)
[2023-11-03 13:26] LABS: Albumin/Globulin Ratio 1.3 (1.1-1.8); Alkaline Phosphatase 118 U/L (38-126); Bilirubin,Total 0.6 mg/dl (0.2-1.3); Calcium 9.1 mg/dl (8.4-10.2); Carbon Dioxide 26 mmol/L (22.0-30.0); Globulin 3.1 g/dL (1.3-3.2); Glucose 109 mg/dl (74-100); Total Protein,Serum 7.1 g/dl (6.3-8.2)
[2023-11-03 13:31] LABS: C-Reactive Protein 28.5 mg/L (0-4)
[2023-11-03 13:46] LABS: Lymphocytes % 50 % (10-50); Monocytes % 4 % (2-9); Neutrophils % 46 % (42-76); Nucleated Red Blood Cells 3; Platelet Estimate Normal; RBC Morphology Normal; Total Cells Counted 100
[2023-11-06 07:11] LABS: HBsAg Screen Negative (Negative); HCV Ab Non Reactive (Non Reactive); Hep A Ab, IGM Negative (Negative); Hep B Core Ab, IgM Negative (Negative)
== END ==
LOC: LAB 11:46
PROVIDERS: PCP Nurse Practitioner Family; Visit Provider Nurse Practitioner Family
DX: D84.821 Immunodeficiency due to drugs (principal); L40.50 Arthropathic psoriasis, unspecified; Z79.899 Other long term (current) drug therapy
CPT/HCPCS: 36415; 80053; 80074; 85007; 85014; 85018; 85048; 85049; 85651; 86140

== ENCOUNTER 2023-12-16 12:55 | Outpatient (CLI) | payer BC, SELFPAY ==
[2023-12-16 13:30] LABS: Basophils # 0.1 K/mm3 (0-0.2); Basophils % 0.4 % (0.1-2.0); Eosinophils # 0.2 K/mm3 (0.0-0.4); Eosinophils % 2.1 % (0.1-12.0); Hematocrit 45.7 % (37.0-47.0); Hemoglobin 15.3 g/dL (12.2-16.2); Lymphocytes # 3.7 K/mm3 (0.7-4.5); Lymphocytes % 32.2 % (10-50); Mean Corpuscular HGB Conc 33.4 g/dL (31.8-35.4); Mean Corpuscular Hemoglobin 27.5 pg (27.0-31.2); Mean Corpuscular Volume 82.3 fl (81-99); Mean Platelet Volume 9.4 fl (7.4-10.4); Monocytes # 0.4 K/mm3 (0.1-1.0); Monocytes % 3.8 % (1.7-9.3); Neutrophils # 7.1 K/mm3 (1.8-7.8); Neutrophils % 61.4 % (37.0-80.0); Platelet Count 420 K/mm3 (142-424); Red Blood Count 5.55 M/mm3 (4.20-5.40); Red Cell Distribution Width 14.7 % (11.5-17.5); White Blood Count 11.5 K/mm3 (4.8-10.8)
[2023-12-16 14:21] LABS: Alanine Aminotransferase 21 U/L (12-78); Albumin Level 4.2 g/dl (3.5-5.0); Albumin/Globulin Ratio 1.3 (1.1-1.8); Alkaline Phosphatase 115 U/L (38-126); Anion Gap 12.6 mEq/L (5-15); Aspartate Amino Transferase 20 U/L (14-36); Bilirubin,Total 0.7 mg/dl (0.2-1.3); Blood Urea Nitrogen 10 mg/dl (7-17); Calcium 9.4 mg/dl (8.4-10.2); Carbon Dioxide 27 mmol/L (22.0-30.0); Chloride 104 mmol/L (98-107); Estimated Glomerular Filt Rate 72 ml/min (>60); GFR (African American) 88 ML/MIN (>60); Globulin 3.2 g/dL (1.3-3.2); Glucose 97 mg/dl (74-100); Potassium 4.6 mmoL/L (3.5-5.1); Sodium 139 mmol/L (136-145); Total Protein,Serum 7.4 g/dl (6.3-8.2)
[2023-12-16 14:53] LABS: Thyroid Stimulating Hormone 3.18 uIU/mL (0.465-4.68)
[2023-12-16 15:12] LABS: Vitamin B12 343 pg/mL (239-931)
[2023-12-16 17:42] LABS: Barbiturates Screen,Urine Negative ng/ml (<200)
[2023-12-16 17:43] LABS: Benzodiazepines Screen,Urine Positive ng/ml (<200)
[2023-12-16 17:49] LABS: Phencyclidine Screen,Urine Negative ng/ml (<25)
[2023-12-16 18:06] LABS: Cocaine Screen,Urine Negative ng/ml (<300); Methadone Screen,Urine Negative ng/ml (<300)
[2023-12-16 18:08] LABS: Opiate Screen,Urine Negative ng/ml (<300)
[2023-12-16 18:36] LABS: Cannabinoid Screen,Urine Negative ng/ml (<50)
[2023-12-16 19:15] LABS: Amphetamine/Metha Screen,Urine Negative ng/ml (<1000)
[2023-12-16 22:19] LABS: Hemoglobin A1C 6.2 % (4.0-6.0)
== END 2023-12-16 23:59 ==
LOC: LAB.DROPOF 12:55
PROVIDERS: PCP Nurse Practitioner Family; Visit Provider Nurse Practitioner Family
DX: R73.03 Prediabetes (principal); L40.50 Arthropathic psoriasis, unspecified; R79.82 Elevated C-reactive protein (CRP); D72.829 Elevated white blood cell count, unspecified; E66.9 Obesity, unspecified; Z68.41 Body mass index [BMI] 40.0-44.9, adult; Z79.899 Other long term (current) drug therapy
CPT/HCPCS: 80053; 80307; 82607; 83036; 84443; 85025; 86140

== ENCOUNTER 2023-12-29 08:15 | Emergency (ER) | payer BC, SELFPAY ==
[2023-12-29 08:25] VITALS: BP 154/68; PULSE 85; RESP 20; TEMP 36.7; O2SAT 97; BMI 40.4
--- NOTE | 2023-12-29 08:32 | ED_ITS ---
Discharge Plan Disposition Patient Disposition: Home, Self-Care Condition: Good Prescriptions Prescriptions: New amoxicillin [amoxicillin] 875 mg tablet 875 mg PO Q12H Qty: 20 0RF benzonatate [benzonatate] 100 mg capsule 100 mg PO TIDP PRN (Reason: Cough) Qty: 30 0RF methylprednisolone 4 mg Tablets,Dose Pack 4 mg PO DIRECTED 6 Days Qty: 21 0RF Rx Instructions: Take 1 pack as directed for 6 days No Action Skyrizi 150 mg/mL pen injector SQ diclofenac sodium 1 % gel topical ergocalciferol (vitamin D2) [Vitamin D2] 1,250 mcg (50,000 unit) capsule PO folic acid 1 mg tablet 1 mg PO cyanocobalamin (vitamin B-12) 1,000 mcg/mL solution IM WEEKLY famotidine 20 mg tablet PO sulfasalazine 500 mg tablet,delayed release (DR/EC) PO ibuprofen 800 mg tablet PO gabapentin 400 mg capsule PO HS triamcinolone acetonide 0.1 % cream topical sulfamethoxazole-trimethoprim [Bactrim DS] 800-160 mg tablet 1 tab PO BID 7 Days Qty: 14 0RF clobetasol 0.05 % cream 1 applic topical BID 14 Days Qty: 60 2RF phentermine 37.5 mg tablet 37.5 mg PO DAILY 30 Days Qty: 30 0RF Rx Instructions: must administer 30 minutes before or 1-2 hours after breakfast diazepam 5 mg tablet 5 mg PO TID PRN (Reason: anxiety) Qty: 90 0RF duloxetine [Cymbalta] 30 mg capsule,delayed release(DR/EC) 30 mg PO DAILY Qty: 90 1RF cholecalciferol (vitamin D3) 1,000 UNIT capsule 900 mg PO DAILY Rx Instructions: vitamin d 900mg daily gabapentin 100 MG capsule 100 mg PO DAILY Referrals Follow up/Referrals: Inez Hart APRN [Primary Care Provider] - See instructions Activity Restrictions/Add. Instructions Additional Instructions/Restrictions: Drink plenty of fluids. Take tylenol or ibuprofen for pain or fever. Take the medications as directed. Follow up with your regular doctor. GO TO THE ER FOR ANY WORSENING SYMPTOMS Clinical Impressions Clinical Impression: Pharyngitis Instructions Patient Instructions: Strep Throat, DI for Strep Throat Discharge ED Provider: Dom Evans [facility] HPI General Stated complaint: sore throat Time Seen by Provider: 02/25/24 08:31 History of Present Illness Provider Complaint: She states that for the past 3 days she has had a very sore throat, fever, chills, cough, and sinus congestion. Related Data Home Medications Medication Instructions Recorded Confirmed gabapentin 100 mg capsule 100 mg PO DAILY Pain 03/03/18 11/27/23 cholecalciferol (vitamin D3) 25 900 mg PO DAILY Supplement 02/21/21 11/27/23 mcg (1,000 unit) capsule cyanocobalamin (vitamin B-12) mcg IM WEEKLY 09/09/23 11/27/23 1,000 mcg/mL injection solution diclofenac sodium 1 % topical gel topical 09/09/23 11/27/23 ergocalciferol (vitamin D2) 1,250 PO 09/09/23 11/27/23 mcg (50,000 unit) capsule (Vitamin D2) famotidine 20 mg tablet mg PO 09/09/23 11/27/23 folic acid 1 mg tablet 1 mg PO 09/09/23 11/27/23 gabapentin 400 mg capsule mg PO HS 09/09/23 11/27/23 ibuprofen 800 mg tablet mg PO 09/09/23 11/27/23 risankizumab-rzaa 150 mg/mL mg SQ 09/09/23 11/27/23 subcutaneous pen injector (Pao) sulfasalazine 500 mg PO 09/09/23 11/27/23 tablet,delayed release triamcinolone acetonide 0.1 % applic topical 09/09/23 11/27/23 topical cream Previous Rx's Medication Instructions Recorded diazepam 5 mg tablet 5 mg PO TID PRN anxiety #90 tabs 04/10/23 sulfamethoxazole 800 1 tab PO BID 7 days #14 tabs 09/09/23 mg-trimethoprim 160 mg tablet (Bactrim DS) clobetasol 0.05 % topical cream 1 applic topical BID 2 weeks #60 09/10/23 grams duloxetine 30 mg capsule,delayed 30 mg PO DAILY #90 caps 10/03/23 release (Cymbalta) phentermine 37.5 mg tablet 37.5 mg PO DAILY 30 days #30 tabs 12/16/23 amoxicillin 875 mg tablet 875 mg PO Q12H #20 tabs 12/29/23 benzonatate 100 mg capsule 100 mg PO TIDP PRN Cough #30 caps 12/29/23 methylprednisolone 4 mg tablets in 4 mg PO DIRECTED 6 days #21 tabs 12/29/23 a dose pack Allergies Allergy/AdvReac Type Severity Reaction Status Date / Time prednisone AdvReac Intermediate Other Verified 12/16/23 08:49 [facility] Disclaimer: The information contained in this section may have been updated after the patient was seen, as this information can be updated by other users. 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 current occupational exposures/hazards: No caffeine: Yes ROS Obtained: Yes All systems reviewed & no additional complaints except as documented Constitutional Constitutional: Reports chills and Reports fever(s) Eyes Eyes: Denies eye discharge ENT Ears, Nose, Mouth, and Throat: Reports as per HPI Cardiovascular Cardiovascular: Denies chest pain Respiratory Respiratory: Denies chest congestion and Reports cough Gastrointestinal Gastrointestingal: Reports nausea; Denies abdominal pain, constipation, cramping, diarrhea or vomiting Musculoskeletal Musculoskeletal: Denies arthralgias Integumentary/Breasts Skin/Breast: Denies rash Neurologic Neurologic: Denies paresthesias Physical Exam General General appearance: alert and in no apparent distress Head Head exam: atraumatic, normocephalic and normal inspection Eye Eye exam: Present normal appearance, PERRL and EOMI ENT ENT exam: Present mucous membranes moist and normal external ear exam Expanded ENT Exam TM/Canal exam: Bilateral TM: erythema and bulging Nose exam: Absent sinus tenderness Mouth exam: Present normal external inspection; Absent drooling Teeth exam: Present normal inspection Throat exam: Present tonsillar erythema, tonsillomegaly and tonsillar exudate Neck Neck exam: Present normal inspection, full ROM and trachea midline; Absent tenderness, meningismus or lymphadenopathy Chest Chest inspection: Present normal inspection and symmetric chest wall rise; Absent tenderness Respiratory Respiratory exam: Present normal lung sounds bilaterally; Absent respiratory distress, wheezes or stridor Cardiovascular Cardiovascular exam: Present regular rate and normal rhythm; Absent systolic murmur or diastolic murmur Abdominal Exam Abdominal exam: Present soft and normal bowel sounds; Absent distention, tenderness, guarding, rebound or rigidity Extremities Exam Extremities exam: Present normal inspection and normal capillary refill; Absent calf tenderness Back Exam Back exam: Present normal inspection and full ROM; Absent tenderness, CVA tenderness (R) or CVA tenderness (L) Neurological Exam Neurological exam: Present alert, oriented X3 and CN II-XII intact Psychiatric Psychiatric exam: Present normal affect and normal mood Skin Skin exam: Present warm, dry, intact and normal color Medical Decision Making Medical Records Medical records reviewed: No I reviewed the patient's medical records. Matty Inquiry Pt receiving controlled substance: No Lab Data Lab results reviewed: Yes I reviewed the patient's lab results.
[2023-12-29 08:58] LABS: UTC Influenza A Antigen Negative (Negative); UTC Influenza B Antigen Negative (Negative); UTC Strep Screen (Rapid) Negative (Negative)
[2023-12-29 09:12] VITALS: BP 154/68; PULSE 85; RESP 20; TEMP 36.7; O2SAT 97
== END 2023-12-29 09:12 | disposition home or self-care (01) ==
PROVIDERS: Emergency Provider Nurse Practitioner Family; PCP Nurse Practitioner Family
DX: J02.9 Acute pharyngitis, unspecified (principal); R50.9 Fever, unspecified; R05.9 Cough, unspecified; R09.81 Nasal congestion; Z20.818 Contact with and (suspected) exposure to other bacterial communicable diseases
CPT/HCPCS: 87804; 87880; 99204; 99212; G0463

== ENCOUNTER 2024-01-13 13:45 | Outpatient (CLI) | payer BC, SELFPAY ==
[2024-01-13 14:51] LABS: Basophils # 0.1 K/mm3 (0-0.2); Basophils % 0.8 % (0.1-2.0); Eosinophils # 0.2 K/mm3 (0.0-0.4); Eosinophils % 2.3 % (0.1-12.0); Hematocrit 45.1 % (37.0-47.0); Hemoglobin 14.5 g/dL (12.2-16.2); Lymphocytes # 3.4 K/mm3 (0.7-4.5); Lymphocytes % 31.7 % (10-50); Mean Corpuscular HGB Conc 32.2 g/dL (31.8-35.4); Mean Platelet Volume 9.5 fl (7.4-10.4); Monocytes # 0.4 K/mm3 (0.1-1.0); Monocytes % 3.7 % (1.7-9.3); Neutrophils # 6.5 K/mm3 (1.8-7.8); Neutrophils % 61.6 % (37.0-80.0); Platelet Count 495 K/mm3 (142-424); Red Blood Count 5.37 M/mm3 (4.20-5.40); Red Cell Distribution Width 14.9 % (11.5-17.5); White Blood Count 10.6 K/mm3 (4.8-10.8)
[2024-01-13 15:19] LABS: C-Reactive Protein 29.2 mg/L (0-4)
== END 2024-01-13 23:59 ==
LOC: LAB.DROPOF 13:46
PROVIDERS: PCP Nurse Practitioner Family; Visit Provider Nurse Practitioner Family
DX: R79.82 Elevated C-reactive protein (CRP) (principal); R80.9 Proteinuria, unspecified
CPT/HCPCS: 85025; 86140

== ENCOUNTER 2024-03-10 09:00 | Outpatient (RCR) | payer BC, SELFPAY | END 2024-03-10 23:59 | disposition home or self-care (01) | LOC: OT 09:00 | PROVIDERS: Visit Provider Nurse Practitioner Family | DX: M54.2 Cervicalgia (principal) ==

== ENCOUNTER 2024-03-12 10:03 | Outpatient (CLI) | payer BC, SELFPAY ==
--- NOTE | 2024-03-12 10:03 | MM_ITS ---
PROCEDURE INFORMATION: Exam: MG Bilateral Screening 3D Mammography Exam date and time: 03/12/2024 10:02 AM Age: 63 years old Clinical indication: Screening examination TECHNIQUE: Imaging protocol: Bilateral Screening tomosynthesis and 2D mammography including computer-aided detection (CAD) when performed. COMPARISON: 1. MG MM DIG SCREENING MAMM BI W/CAD 09/01/2020 8:26 AM 2. MG MM DIG SCREENING MAMM BI W/CAD 08/31/2019 4:07 PM FINDINGS: MAMMOGRAPHY: Breast composition: There are scattered areas of fibroglandular density. Mass: None. Architectural distortion: None. Calcifications: No suspicious calcifications. Asymmetric density: None. Skin thickening: None. Axillary adenopathy: None. IMPRESSION: No mammographic evidence of malignancy. Annual screening is recommended unless otherwise clinically indicated. ASSESSMENT: BI-RADS Category 1: Negative
== END 2024-03-12 23:59 | disposition home or self-care (01) ==
LOC: RAD 10:03
PROVIDERS: PCP Nurse Practitioner Family; Visit Provider Nurse Practitioner Family
DX: Z12.31 Encounter for screening mammogram for malignant neoplasm of breast (principal)
CPT/HCPCS: 77063; 77067

== ENCOUNTER 2024-04-15 12:34 | Outpatient (CLI) | payer BC, SELFPAY ==
[2024-04-15 13:14] LABS: Basophils # 0.1 K/mm3 (0-0.2); Basophils % 1.1 % (0.1-2.0); Eosinophils # 0.4 K/mm3 (0.0-0.4); Eosinophils % 3.1 % (0.1-12.0); Hematocrit 45.1 % (37.0-47.0); Hemoglobin 14.2 g/dL (12.2-16.2); Lymphocytes # 3.2 K/mm3 (0.7-4.5); Lymphocytes % 23.9 % (10-50); Mean Corpuscular HGB Conc 31.6 g/dL (31.8-35.4); Mean Corpuscular Hemoglobin 26.3 pg (27.0-31.2); Mean Corpuscular Volume 83.3 fl (81-99); Mean Platelet Volume 8.1 fl (7.4-10.4); Monocytes # 0.4 K/mm3 (0.1-1.0); Monocytes % 2.7 % (1.7-9.3); Neutrophils # 9.3 K/mm3 (1.8-7.8); Neutrophils % 69.3 % (37.0-80.0); Platelet Count 335 K/mm3 (142-424); Red Blood Count 5.41 M/mm3 (4.20-5.40); Red Cell Distribution Width 15.1 % (11.5-17.5); White Blood Count 13.5 K/mm3 (4.8-10.8)
[2024-04-15 13:55] LABS: Hemoglobin A1C 6.4 % (4.0-6.0)
[2024-04-15 13:57] LABS: Alanine Aminotransferase 12 U/L (12-78); Albumin Level 3.7 g/dl (3.5-5.0); Albumin/Globulin Ratio 1.1 (1.1-1.8); Alkaline Phosphatase 97 U/L (38-126); Amylase 58 U/L (30-110); Anion Gap 13.7 mEq/L (5-15); Aspartate Amino Transferase 17 U/L (14-36); Bilirubin,Total 0.9 mg/dl (0.2-1.3); Blood Urea Nitrogen 9 mg/dl (7-17); Calcium 9.2 mg/dl (8.4-10.2); Carbon Dioxide 28 mmol/L (22.0-30.0); Chloride 105 mmol/L (98-107); Estimated Glomerular Filt Rate 85 ml/min (>60); GFR (African American) 102 ML/MIN (>60); Globulin 3.4 g/dL (1.3-3.2); Glucose 94 mg/dl (74-100); Lipase 67 U/L (23-300); Potassium 4.7 mmoL/L (3.5-5.1); Sodium 142 mmol/L (136-145); Total Protein,Serum 7.1 g/dl (6.3-8.2)
[2024-04-15 14:02] LABS: C-Reactive Protein 50.6 mg/L (0-4)
[2024-04-15 14:08] LABS: Troponin I < 0.01 ng/ml (0.00-0.034)
[2024-04-15 14:15] LABS: 25-OH Vitamin D, Total < 12.8 ng/mL (30-100)
[2024-04-15 14:45] LABS: Vitamin B12 319 pg/mL (239-931)
[2024-04-15 14:48] LABS: Erythrocyte Sedimentation Rate 48 mm/hr (0-30)
--- NOTE | 2024-04-15 18:57 | XR_ITS ---
PROCEDURE INFORMATION: Exam: XR Chest Exam date and time: 04/15/2024 6:59 PM Age: 63 years old Clinical indication: Pain; Cough; Right-sided; Additional info: Right sided chest pain, cough TECHNIQUE: Imaging protocol: Radiologic exam of the chest. Views: 2 views. COMPARISON: CT ABDOMEN PELVIS W CON 01/28/2022 11:39 PM FINDINGS: Lungs: Normal pulmonary expansion. Pulmonary vasculature grossly normal. No gross pulmonary infiltrates or edema pattern. Pleural spaces: No pleural effusion. No pneumothorax. Heart/Mediastinum: Heart size normal. No tracheal/mediastinal shift. Bones/joints: No acute osseous abnormalities are identified. Mild thoracic spondylosis. IMPRESSION: No acute thoracic process.
[2024-04-17 22:06] LABS: QuantiFERON-TB Gold Plus Negative (Negative)
[2024-04-19 14:29] LABS: Folate 5.66 ng/mL
== END 2024-04-15 23:59 | disposition home or self-care (01) ==
LOC: LAB 12:35
PROVIDERS: Nurse Practitioner Family; PCP Nurse Practitioner Family; Visit Provider Nurse Practitioner Family
DX: R11.0 Nausea (principal); R07.9 Chest pain, unspecified; L40.50 Arthropathic psoriasis, unspecified; R79.82 Elevated C-reactive protein (CRP); R73.03 Prediabetes; R05.1 Acute cough; E55.9 Vitamin D deficiency, unspecified; Z68.41 Body mass index [BMI] 40.0-44.9, adult; E66.9 Obesity, unspecified
CPT/HCPCS: 36415; 71046; 80053; 82150; 82306; 82607; 82746; 83036; 83690; 84484; 85025; 85651; 86140; 86480

== ENCOUNTER 2024-05-06 09:47 | Outpatient (CLI) | payer BC, SELFPAY ==
--- NOTE | 2024-05-06 09:51 | CA_ITS ---
APPROVED REPORT EXAM: Comprehensive 2D, Doppler, and color-flow Echocardiogram Divemaster: Sandra Moore RVT Ht: 5 ft 5 in Wt: 245lbs BSA: 2.16 BP: 150/94 mmHg Indications: SOA,CP TDS-PT BODY HABITUS 2D Dimensions IVSd 1.14 cm F: 0.6-1.0 PWd 0.69 cm F: 0.6 - 1.0 LVDd 4.04 cm F: 3.9 - 5.3 M-Mode Dimensions RVDd 1.83 cm (0.9-2.6) LA Diam 3.17 cm (1.9-4.0) LVDd 3.74 cm (3.5-5.7) LVDs 2.55 cm (3.5-5.7) IVSd 0.93 cm (0.6-1.1) PWd 0.76 cm (0.6-1.1) EF (Teich) 60.70% FS 31.80% EDV (Teich) 59.60 mL ESV (Teich) 23.40 mL LV Diastology E Decel Time 240 (160-240 msec) E/A Ratio 0.8 Aortic Valve AO Peak GR. 3.80 mmHg Mitral Valve MV E Max Santiago. 68.0 (40-130 cm/s) MV A Velocity 86.0 (40-130 cm/s) E/A Ratio 0.79 MV PHT 70.0 ms Pulmonary Valve PV Peak Velocity 64.0 (50-150 cm/s) Tricuspid Valve TR P. Velocity 251.00 cm/s RAP Estimate 10.00 mmHg RVSP 35.20 mmHg Left Ventricle The left ventricle is normal size. The left ventricular systolic function is normal. The left ventricular ejection fraction is within the normal range. There is increased LV wall thickness. There is normal LV segmental wall motion. Transmitral Doppler flow pattern suggests impaired LV relaxation. LVEF is 55%. Right Ventricle The right ventricle is normal size. The right ventricular systolic function is normal. Atria The left atrium size is normal. The right atrium size is normal. There is no Doppler evidence of interatrial shunt. Aortic Valve The aortic valve is mildly thickened. There is no aortic valvular stenosis. Trace aortic regurgitation. Mitral Valve The mitral valve leaflets are mildly thickened. No evidence of mitral valve stenosis. Trace mitral regurgitation. Tricuspid Valve The tricuspid valve leaflets are thin and pliable. Trace tricuspid regurgitation. RVSP is 15-20 mmHg. Pulmonic Valve The pulmonary valve is normal in structure. Mild pulmonic regurgitation. Great Vessels The aortic root is normal in size. The ascending aorta is not well-visualized. IVC is normal in size and collapses >50% with inspiration. Pericardium Trivial anterior pericardial effusion is present. Other Information Study Quality: Technically Difficult Conclusion Technically difficult study due to poor acoustic windows. Normal biventricular systolic function. Mild PI. Trivial anterior pericardial effusion is present. Electronically signed by : Domenica Ramirez MD 05/12/2024 12:29:51
== END 2024-05-06 23:59 | disposition home or self-care (01) ==
LOC: RT 09:47
PROVIDERS: PCP Nurse Practitioner Family; Visit Provider Nurse Practitioner Family
DX: R06.02 Shortness of breath (principal)
CPT/HCPCS: 93306

== ENCOUNTER 2024-06-03 18:30 | Observation (INO) | payer BC, SELFPAY ==
[2024-06-03 20:08] VITALS: BP 171/77; PULSE 98; RESP 15; TEMP 36.7; O2SAT 99; BMI 39.9
--- NOTE | 2024-06-03 20:08 | CT_ITS ---
PROCEDURE INFORMATION: Exam: CT Abdomen And Pelvis With Contrast Exam date and time: 06/03/2024 8:47 PM Age: 63 years old Clinical indication: Abdominal pain; Additional info: Abd pain TECHNIQUE: Imaging protocol: Computed tomography of the abdomen and pelvis with contrast. Total images: 344 Radiation optimization: All CT scans at this facility use at least one of these dose optimization techniques: automated exposure control; mA and/or kV adjustment per patient size (includes targeted exams where dose is matched to clinical indication); or iterative reconstruction. Contrast material: ISOVUE; Contrast volume: 75 ml; Contrast route: IV; COMPARISON: CT ABDOMEN PELVIS W CON 01/28/2022 11:39 PM FINDINGS: Lungs: Linear bibasilar atelectasis. No airspace consolidation. Mild compressive atelectasis left lung base. Pleural spaces: Small left pleural effusion. Heart: Normal heart size. Coronary arteries: Coronary artery calcification. Liver: Hepatomegaly at 20 cm. Hepatic steatosis. Normal liver contour. No mass. Gallbladder and biliary ducts: Focal thickening at the fundus of the gallbladder, unchanged and likely reflecting adenomyomatosis. No calcified gallstones. No biliary ductal dilatation. Pancreas: Normal. No ductal dilation. Spleen: Normal. No splenomegaly. Adrenal glands: Normal. No mass. Kidneys and ureters: No hydronephrosis, nephrolithiasis, or renal mass. Subcentimeter lower pole right renal cortical hypodensity is too small to characterize but unchanged and most likely a cyst. Chronic bilateral perinephric fat stranding. Stomach and bowel: Unremarkable stomach and duodenum. No ileus or bowel obstruction. Small bowel is within normal limits. Mild sigmoid diverticulosis. No acute diverticulitis. Unremarkable rectum. Appendix: No evidence for appendicitis. Intraperitoneal space: Unremarkable. No free air. No significant fluid collection. Vasculature: Abdominal aorta is atherosclerotic but nonaneurysmal. Major abdominal vessels enhance appropriately. Pelvic phleboliths. Lymph nodes: Unremarkable. No enlarged lymph nodes. Urinary bladder: Tiny gas locules in the bladder. No significant bladder wall thickening. Reproductive: Status post hysterectomy. Nonenlarged ovaries. No adnexal mass. Bones/joints: Mild degenerative changes thoracolumbar spine. Mild osteopenia. Minor lumbar levocurvature may be positional. Moderate degenerative changes bilateral hips. Soft tissues: Tiny fat containing periumbilical hernia. IMPRESSION: 1. No acute intra-abdominal or pelvic process. 2. Small left pleural effusion 3. Bibasilar atelectasis 4. Mild hepatomegaly. 5. Additional chronic and incidental findings.
--- NOTE | 2024-06-03 20:08 | ED_ITS ---
Discharge Plan Disposition Patient Disposition: Admitted Clinical Impressions Clinical Impression: Abdominal pain, RUQ, Leukocytosis, Pleural effusion, left Discharge ED Provider: Jessica Villalba General Adult HPI General Chief complaint: Abdominal Pain Stated complaint: abdominal pain Time Seen by Provider: 06/03/24 20:08 History of Present Illness HPI narrative: This patient is a 63-year-old female with a history of obesity, anxiety, psoriatic arthritis, prediabetes presenting to the emergency department for evaluation with concern for abdominal pain. Patient reports that for the last week, she has had right abdominal pain that has been intermittent but worse with eating. She has not been able to eat or drink very much secondary to the pain. She is also had nausea. No fevers, changes in bowel movements, urinary symptoms, or other concerns. Related Data Home Medications ?Medication ?Instructions ?Recorded ?Confirmed cyanocobalamin (vitamin B-12) 1,000 mcg IM WEEKLY 09/09/23 06/04/24 1,000 mcg/mL injection solution gabapentin 400 mg capsule 400 mg PO HS 09/09/23 06/04/24 cholecalciferol (vitamin D3) 50 50 mcg PO DAILY 02/24/24 06/04/24 mcg (2,000 unit) capsule folic acid 1 mg tablet 1 mg PO DAILY 02/24/24 06/04/24 ibuprofen 800 mg tablet 800 mg PO TID PRN Pain (Scale 02/24/24 06/03/24 Score 4-6) risankizumab-rzaa 150 mg/mL 150 mg SQ [id number] 02/24/24 06/04/24 subcutaneous pen injector (Skyrizi) Previous Rx's ?Medication ?Instructions ?Recorded diazepam 5 mg tablet 5 mg PO TID PRN anxiety #90 tabs 04/10/23 clobetasol 0.05 % topical cream 1 applic topical BID 2 weeks #60 09/10/23 grams Allergies Allergy/AdvReac Type Severity Reaction Status Date / Time prednisone AdvReac Intermediate Other Verified 02/24/24 08:44 [facility] Disclaimer: The information contained in this section may have been updated after the patient was seen, as this information can be updated by other users. 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 current occupational exposures/hazards: No caffeine: Yes ROS Obtained: Yes All systems reviewed & no additional complaints except as documented Physical Exam General General appearance: alert and obese Comment: Uncomfortable appearing Head Head exam: atraumatic and normocephalic Eye Eye exam: Present normal appearance, PERRL and EOMI ENT ENT exam: Present normal exam, normal oropharynx, mucous membranes moist and normal external ear exam Neck Neck exam: Present normal inspection, full ROM and trachea midline; Absent tenderness Chest Chest inspection: Present normal inspection and symmetric chest wall rise; Absent tenderness Respiratory Respiratory exam: Present normal lung sounds bilaterally; Absent respiratory distress, wheezes, stridor or accessory muscle use Cardiovascular Cardiovascular exam: Present regular rate and normal rhythm Abdominal Exam Abdominal exam: Present soft, tenderness (Right upper quadrant) and guarding (Right upper quadrant); Absent distention, rebound or rigidity Abdominal tenderness: Present RUQ Extremities Exam Extremities exam: Present normal inspection, full ROM and normal capillary refill; Absent tenderness or edema Back Exam Back exam: Present normal inspection and full ROM; Absent tenderness Neurological Exam Neurological exam: Present alert, oriented X3, CN II-XII intact and normal gait; Absent motor sensory deficit Psychiatric Psychiatric exam: Present normal affect and normal mood Skin Skin exam: Present warm and dry Medical Decision Making Medical Records Medical records reviewed: Yes I reviewed the patient's medical records. Matty Inquiry Pt receiving controlled substance: No Vital Signs: 06/03/24 20:08 06/03/24 23:42 Temperature 98.0 F 98 F Temperature Source Oral Oral Pulse Rate 84 Pulse Rate [Right Brachial] 98 H Respiratory Rate 15 16 Blood Pressure 156/70 H Blood Pressure [Right Arm] 171/77 H Blood Pressure Mean [Right Arm] 108 Blood Pressure Source Automatic Cuff Blood Pressure Source [Right Arm] Automatic Cuff Blood Pressure Position Sitting Blood Pressure Position [Right Arm] Sitting 02 Sat by Pulse Oximetry 99 Oxygen Delivery Method Room Air Room Air Lab Data Lab results reviewed: Yes I reviewed the patient's lab results. Lab Results 06/03/24 20:08: WBC 16.6 H, RBC 5.39, Hgb 14.3, Hct 43.7, MCV 81.2, MCH 26.6 L, MCHC 32.7, RDW 14.7, Plt Count 452 H, MPV 7.9, Neut % (Auto) 70.7, Lymph % (Auto) 21.8, [place] % (Auto) 3.0, Eos % (Auto) 3.7, Baso % (Auto) 0.8, Neut # (Auto) 11.7 H, Lymph # (Auto) 3.6, [place] # (Auto) 0.5, Eos # (Auto) 0.6 H, Baso # (Auto) 0.1, Total Counted 100, Neutrophils % (Manual) 63, Lymphocytes % (Manual) 33, Monocytes % (Manual) 2, Eosinophils % (Manual) 2, Platelet Estimate Slight increase, Hypochromasia 1+, Sodium 140, Potassium 3.8, Chloride 107, Carbon Dioxide 26, Anion Gap 10.8, BUN 11, Creatinine 0.80, Estimated Creat Clear 99, Estimated GFR 72, Est GFR ( Amer) 88, Glucose 112 H, Lactate 1.2, Calcium 9.2, Total Bilirubin 0.6, AST 22, ALT 16, Alkaline Phosphatase 104, Total Protein 8.1, Albumin 4.2, Globulin 3.9 H, Albumin/Globulin Ratio 1.1, Lipase 83 06/03/24 20:10: Urine Color Yellow, Urine Appearance Clear, Urine pH 6.0, Ur Specific [place] <= 1.005, Urine Protein Negative, Urine Glucose (UA) Negative, Urine Ketones Negative, Urine Blood Negative, Urine Nitrate Negative, Urine Bilirubin Negative, Urine Urobilinogen 0.2, Ur Leukocyte Esterase Trace, Urine RBC None, Urine WBC None, Ur Squamous Epith Cells 3-5, Urine Bacteria None 06/03/24 20:08 06/03/24 20:08 Orders (Tests/Meds): ED MEDICATIONS Generic Name Dose Route Start Last Admin Trade Name Freq PRN Reason Stop Dose Admin Acetaminophen 650 mg 06/03/24 23:35 Acetaminophen 325mg Tab PO 07/03/24 23:34 Q4HP PRN Fever or Mild Pain (1-3) Enoxaparin Sodium 40 mg 06/04/24 09:00 Enoxaparin 40mg/0.4ml Syringe SQ 07/04/24 08:59 DAILY SALLY Sodium Chloride 1,000 mls @ 75 mls/hr 06/03/24 23:45 06/03/24 23:53 Sod Chlor 0.9% 1000ml Bag IV 07/03/24 23:44 75 mls/hr .[id number] SALLY Administration Morphine Sulfate 4 mg 06/03/24 23:35 Morphine 4mg/Ml Syringe IV 07/03/24 23:34 Q4HP PRN Severe Pain (7-10) Nicotine 21 mg 06/03/24 23:35 Nicotine 21mg/24hr Patch TD 07/03/24 23:34 DAILYP PRN Nicotine Cravings Ondansetron HCl 4 mg 06/03/24 23:35 Ondansetron 4mg/2ml Vial IV 07/03/24 23:34 Q8HP PRN Nausea Pantoprazole Sodium 40 mg 06/04/24 09:00 Pantoprazole 40mg Tablet PO 07/04/24 08:59 DAILY SALLY Sodium Chloride 10 ml 06/03/24 20:49 06/03/24 20:50 Sodium Chloride 0.9% 10ml Syr (Rad Only) IV 07/03/24 20:48 10 ml NEEDED PRN Administration Maintain IV Site Sodium Chloride 8 ml 06/03/24 20:58 Sodium Chloride 0.9% 10ml Vial IV 07/03/24 20:57 NEEDED PRN dilute pepcid Sodium Chloride 10 ml 06/03/24 23:35 Sodium Chloride 0.9% 10ml Flush Syringe IV 07/03/24 23:34 NEEDED PRN Maintain IV Site Discontinued Medications Generic Name Dose Route Start Last Admin Trade Name Freq PRN Reason Stop Dose Admin Acetaminophen 1,000 mg 06/03/24 20:58 06/03/24 21:30 Acetaminophen 1,000mg/100ml Vial IV 06/03/24 20:59 1,000 mg ONCE ONE Administration Famotidine 20 mg 06/03/24 20:58 06/03/24 21:30 Famotidine 20mg/2ml Vial IV 06/03/24 20:59 20 mg ONCE ONE Administration Lactated Ringer's 1,000 mls @ 999 mls/hr 06/03/24 20:58 06/03/24 21:30 Lactated Ringer's 1000 Ml Bag IV 06/03/24 21:58 999 mls/hr .Q1H1M ONE Administration Iopamidol 75 ml 06/03/24 20:49 06/03/24 20:50 Iopamidol-370 (76%);100ml Bottle IV 06/03/24 20:50 75 ml ONCE ONE Administration Ketorolac Tromethamine 15 mg 06/03/24 20:58 06/03/24 21:30 Ketorolac 30mg/Ml Vial IV 06/03/24 20:59 15 mg ONCE ONE Administration Morphine Sulfate 4 mg 06/03/24 22:44 06/03/24 22:53 Morphine 4mg/Ml Syringe IV 06/03/24 22:45 4 mg ONCE ONE Administration Ondansetron HCl 4 mg 06/03/24 20:58 06/03/24 21:30 Ondansetron 4mg/2ml Vial IV 06/03/24 20:59 4 mg ONCE ONE Administration ORDERS Category Date Time Status CT abdomen pelvis w con Stat Cat Scan 06/03/24 20:08 Completed Complete Blood Count Auto Diff Stat Lab 06/03/24 20:08 Completed Comprehensive Metabolic Panel Stat Lab 06/03/24 20:08 Completed Lactic Acid Stat Lab 06/03/24 20:08 Completed Lipase Stat Lab 06/03/24 20:08 Completed UA [Urinalysis and Microscopic] Stat Lab 06/03/24 20:10 Completed ECG Data Tracing #1: I reviewed this ECG and interpreted as documented below: Normal sinus rhythm with a ventricular rate of [address] changes concerning for ischemia. Normal axis and intervals. ECG initial impression date: 06/03/24 ECG initial impression time: 20:31 Medical Decision Narrative: In summary, this patient is a 63-year-old female presenting to the Emergency Department for evaluation of right upper quadrant abdominal pain. Differential diagnoses considered include but are not limited to cholecystitis, cholangitis, choledocholithiasis, constipation, colitis, hepatitis, pancreatitis. Ruling out the most morbid conditions drove assessment. On exam, the patient has right upper quadrant tenderness with guarding, but otherwise exam is reassuring. Workup included CBC, CMP, lipase, EKG, CT abdomen pelvis with IV contrast, urinalysis. EKG reassuring.. I independently interpreted CT scan prior to the radiologist read and noted hepatomegaly with no obvious fluid around the gallbladder or gallbladder wall thickening. Please see their read for final interpretation. Labs were obtained that demonstrated leukocytosis without other acutely concerning abnormalities. On reassessment, patient had some improvement after administration of IV fluids, IV Toradol, acetaminophen, and Zofran. Upon p.o. challenge, patient failed and was unable to tolerate oral intake with significant return of abdominal pain afterward. She still has significant right upper quadrant tenderness. Given this, concerned she could be developing cholecystitis in the setting of leukocytosis, right upper quadrant pain, and positive Sampson sign. Given her persistent symptoms and inability to pass p.o. challenge, I had an interactive discussion with the hospitalist who admitted the patient. Critical Care Critical Care Time Critical Care Time: No
[2024-06-03 20:17] LABS: Microscopic, Urine URINE MICROSCOPIC (MICROSCOPIC)
[2024-06-03 20:20] LABS: Basophils # 0.1 K/mm3 (0-0.2); Basophils % 0.8 % (0.1-2.0); Eosinophils # 0.6 K/mm3 (0.0-0.4); Eosinophils % 3.7 % (0.1-12.0); Hematocrit 43.7 % (37.0-47.0); Hemoglobin 14.3 g/dL (12.2-16.2); Lymphocytes # 3.6 K/mm3 (0.7-4.5); Lymphocytes % 21.8 % (10-50); Mean Corpuscular HGB Conc 32.7 g/dL (31.8-35.4); Mean Corpuscular Hemoglobin 26.6 pg (27.0-31.2); Mean Corpuscular Volume 81.2 fl (81-99); Mean Platelet Volume 7.9 fl (7.4-10.4); Monocytes # 0.5 K/mm3 (0.1-1.0); Neutrophils # 11.7 K/mm3 (1.8-7.8); Neutrophils % 70.7 % (37.0-80.0); Platelet Count 452 K/mm3 (142-424); Red Blood Count 5.39 M/mm3 (4.20-5.40); Red Cell Distribution Width 14.7 % (11.5-17.5); White Blood Count 16.6 K/mm3 (4.8-10.8)
[2024-06-03 20:21] LABS: Appearance,Urine CLEAR (Clear); Bilirubin,Urine Negative (Negative); Blood, Urine Negative (Negative); Color,Urine YELLOW (Yellow); Glucose,Urine (UA) Negative (Negative); Ketones,Urine Negative (Negative); Leukocyte Esterase,Urine TRACE (Negative); Nitrate,Urine Negative (Negative); Protein,Urine Negative (Negative); Specific Gravity, Urine <= 1.005 (1.005-1.030); Urobilinogen,Urine 0.2 EU/dl (0.2)
[2024-06-03 20:27] LABS: MANUAL DIFFERENTIAL MANUAL DIFFERENTIAL (MANUAL DIFF)
--- NOTE | 2024-06-03 20:27 | ECG_ITS ---
APPROVED REPORT Exam: Resting ECG HR:93 bpm ECG Measurements Heart Rate 93 AXES KS 169 P 56 QRSd 88 QRS 46 QT 335 T 34 QTc 386 Conclusion SINUS RHYTHM LOW QRS VOLTAGE IN PRECORDIAL LEADS [QRS DEFLECTION < 1.0 mV IN CHEST LEADS] NONSPECIFIC T-WAVE ABNORMALITY BORDERLINE ECG Electronically signed by : DESTINEY BREWER, 06/04/2024 00:48:13
[2024-06-03 20:31] LABS: Albumin Level 4.2 g/dl (3.5-5.0); Chloride 107 mmol/L (98-107); Sodium 140 mmol/L (136-145)
[2024-06-03 20:32] LABS: Potassium 3.8 mmoL/L (3.5-5.1)
[2024-06-03 20:34] LABS: Alanine Aminotransferase 16 U/L (12-78); Albumin/Globulin Ratio 1.1 (1.1-1.8); Alkaline Phosphatase 104 U/L (38-126); Anion Gap 10.8 mEq/L (5-15); Aspartate Amino Transferase 22 U/L (14-36); Bilirubin,Total 0.6 mg/dl (0.2-1.3); Blood Urea Nitrogen 11 mg/dl (7-17); Calcium 9.2 mg/dl (8.4-10.2); Carbon Dioxide 26 mmol/L (22.0-30.0); Creatinine Clearance Estimated 99 mL/min (50-200); Estimated Glomerular Filt Rate 72 ml/min (>60); GFR (African American) 88 ML/MIN (>60); Globulin 3.9 g/dL (1.3-3.2); Glucose 112 mg/dl (74-100); Lactic Acid 1.2 mmol/L (0.7-2.1); Lipase 83 U/L (23-300); Total Protein,Serum 8.1 g/dl (6.3-8.2)
[2024-06-03 20:45] LABS: Eosinophils % 2 % (0-3); Hypochromasia 1+; Lymphocytes % 33 % (10-50); Monocytes % 2 % (2-9); Neutrophils % 63 % (42-76); Platelet Estimate Slight Increase; Total Cells Counted 100
[2024-06-03] MEDS: SODIUM CHLORIDE 0.9% 10ML SYR (RAD ONLY) 10 ML IV (20:50)
[2024-06-03] MEDS: IOPAMIDOL-370 (76%);100ML BOTTLE 75 ML IV (20:50)
[2024-06-03] MEDS: FAMOTIDINE 20MG/2ML VIAL 20 MG IV (21:30)
[2024-06-03] MEDS: ACETAMINOPHEN 1,000MG/100ML VIAL 1000 MG IV (21:30)
[2024-06-03] MEDS: LACTATED RINGERS 1000ML 1,000 ML 999 ML IV (21:30)
[2024-06-03] MEDS: KETOROLAC 30MG/ML VIAL 15 MG IV (21:30)
[2024-06-03] MEDS: ONDANSETRON 4MG/2ML VIAL 4 MG IV (21:30)
--- NOTE | 2024-06-03 22:39 | PC.NURSE ---
Pt states she was able to keep crackers and drink down although her pain returns when eating and causes her BP to go up.
[2024-06-03] MEDS: MORPHINE 4MG/ML SYRINGE 4 MG IV (22:53)
--- NOTE | 2024-06-03 23:39 | EXP.HP ---
History of Present Illness *Admission Date: 06/03/24 *Reason for visit:: RUQ abd pain *History of present illness: This is a 63-year-old female with a history of obesity, anxiety, psoriatic arthritis, prediabetes presenting to the emergency department for evaluation of RUQ abdominal pain. Pain has been ongoing for the last 3 weeks with patient reports that she has had right abdominal pain that has been intermittent but worse with eating, over the last week. She has not been able to eat or drink very much secondary to the pain. She is also had nausea. No fevers, changes in bowel movements, urinary symptoms, or other concerns. Admitted for further work up. [facility] Disclaimer: The information contained in this section may have been updated after the patient was seen, as this information can be updated by other users. 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 current occupational exposures/hazards: No caffeine: Yes Review of Systems Review of Systems Review of systems:: pertinent systems reviewed and negative unless documented below Meds Home Medications and Allergies Home Medications ?Medication ?Instructions ?Recorded ?Confirmed ?Type cyanocobalamin (vitamin B-12) 1,000 mcg IM WEEKLY 09/09/23 06/04/24 History 1,000 mcg/mL injection solution cholecalciferol (vitamin D3) 50 50 mcg PO DAILY 02/24/24 06/04/24 History mcg (2,000 unit) capsule folic acid 1 mg tablet 1 mg PO DAILY 02/24/24 06/04/24 History ibuprofen 800 mg tablet 800 mg PO TID PRN Pain (Scale 02/24/24 06/03/24 History Score 4-6) risankizumab-rzaa 150 mg/mL 150 mg SQ [id number] 02/24/24 06/04/24 History subcutaneous pen injector (Skyrizi) ergocalciferol (vitamin D2) 1,250 50,000 unit PO WEEKLY 06/04/24 06/04/24 History mcg (50,000 unit) capsule (Vitamin D2) famotidine 20 mg tablet 20 mg PO DAILY 06/04/24 06/04/24 History gabapentin 100 mg capsule 100 mg PO BID 06/04/24 06/04/24 History New Prescriptions to Start Prescriptions: Allergies Allergy/AdvReac Type Severity Reaction Status Date / Time prednisone AdvReac Intermediate Other Verified 02/24/24 08:44 Exam Data for Last 24 hours Vital signs and Labs for Last 24 Hours: Temp Pulse Resp BP Pulse Ox O2 Del Method 98.0 F 98 H 15 171/77 H 99 Room Air 06/03/24 20:08 06/03/24 20:08 06/03/24 20:08 06/03/24 20:08 06/03/24 20:08 06/03/24 20:08 Laboratory Results - last 24 hr 06/03/24 20:08: WBC 16.6 H, RBC 5.39, Hgb 14.3, Hct 43.7, MCV 81.2, MCH 26.6 L, MCHC 32.7, RDW 14.7, Plt Count 452 H, MPV 7.9, Neut % (Auto) 70.7, Lymph % (Auto) 21.8, [place] % (Auto) 3.0, Eos % (Auto) 3.7, Baso % (Auto) 0.8, Neut # (Auto) 11.7 H, Lymph # (Auto) 3.6, [place] # (Auto) 0.5, Eos # (Auto) 0.6 H, Baso # (Auto) 0.1, Total Counted 100, Neutrophils % (Manual) 63, Lymphocytes % (Manual) 33, Monocytes % (Manual) 2, Eosinophils % (Manual) 2, Platelet Estimate Slight increase, Hypochromasia 1+, Sodium 140, Potassium 3.8, Chloride 107, Carbon Dioxide 26, Anion Gap 10.8, BUN 11, Creatinine 0.80, Estimated Creat Clear 99, Estimated GFR 72, Est GFR ( Amer) 88, Glucose 112 H, Lactate 1.2, Calcium 9.2, Total Bilirubin 0.6, AST 22, ALT 16, Alkaline Phosphatase 104, Total Protein 8.1, Albumin 4.2, Globulin 3.9 H, Albumin/Globulin Ratio 1.1, Lipase 83 06/03/24 20:10: Urine Color Yellow, Urine Appearance Clear, Urine pH 6.0, Ur Specific [place] <= 1.005, Urine Protein Negative, Urine Glucose (UA) Negative, Urine Ketones Negative, Urine Blood Negative, Urine Nitrate Negative, Urine Bilirubin Negative, Urine Urobilinogen 0.2, Ur Leukocyte Esterase Trace, Urine RBC None, Urine WBC None, Ur Squamous Epith Cells 3-5, Urine Bacteria None I & O for Last 24 hours: Intake & Output 05/31/24 06/01/24 06/02/24 06/03/24 23:59 23:59 23:59 23:59 Weight 108.862 kg Constitutional Constitutional: moderate distress, morbidly obese and cooperative *Routine HEENT Exam Head: Present normocephalic Eye: Present EOMI and PERRL ENT: Present mucous membranes moist *Routine Neck Exam Neck: Present supple; Absent lymphadenopathy *Routine Respiratory Exam Respiratory: Present CTA bilaterally *Routine Cardiovascular Exam Cardiovascular: Present RRR *Routine Abdominal Exam Abdominal: Present soft, normoactive bowel sounds, tenderness, distended, guarding, organomegaly and hernia *Routine Rectal Exam Rectal:: deferred *Routine Genitalia Exam Genitalia:: deferred *Routine Extremities Exam Extremities: Absent cyanosis, clubbing or edema *Routine Skin Exam Skin: Present warm; Absent rash *Routine Neurological Exam Neurological: Present alert, oriented X3, normal reflexes and moving all extremities Routine Psychiatric Exam Psychiatric: Present anxious H&P: Result Imaging and Cardiology EKG: Status: image reviewed by me, Preliminary report and final report CT scan - abdomen: Status: image reviewed by me, Preliminary report and final report Assessment and Plan *Assessment and plan (1) Abdominal pain, RUQ: Status: Acute Category: Medical Code(s): R10.11 - Right upper quadrant pain (2) Adenomyomatosis of gallbladder: Status: Acute Category: Medical Code(s): D13.5 - Benign neoplasm of extrahepatic bile ducts (3) Hepatomegaly: Status: Acute Category: Medical Code(s): R16.0 - Hepatomegaly, not elsewhere classified (4) Fatty (change of) liver, not elsewhere classified: Status: Acute Category: Medical Code(s): K76.0 - Fatty (change of) liver, not elsewhere classified (5) Leukocytosis: Status: Acute Qualifiers: Leukocytosis type: unspecified Qualified Code(s): D72.829 - Elevated white blood cell count, unspecified Category: Medical Code(s): D72.829 - Elevated white blood cell count, unspecified (6) Reactive thrombocytosis: Status: Acute Category: Medical Code(s): D75.838 - Other thrombocytosis (7) Psoriatic arthritis: Status: Acute Category: Medical Code(s): L40.50 - Arthropathic psoriasis, unspecified (8) BMI 39.0-39.9,adult: Status: Acute Category: Medical Code(s): Z68.39 - Body mass index [BMI] 39.0-39.9, adult Plan 63-year-old female with a history of obesity, anxiety, psoriatic arthritis, prediabetes presenting to the emergency department for evaluation of RUQ abdominal pain. Pain has been ongoing for the last 3 weeks with patient reports that she has had right abdominal pain that has been intermittent but worse with eating, over the last week. On arrival patient presented with significant right upper quadrant with tenderness and guarding, was not able to tolerate much p.o. the ER. CT of the abdomen was obtained, hepatomegaly with no obvious fluid around the gallbladder or gallbladder wall thickening was seen. Labs are significant for leukocytosis and thrombocytosis. ED requested admission. Finding discussed. I agree for inpatient management. Plan : -Intractable right upper quadrant abdominal pain. With nausea and vomiting: Hepatomegaly in the setting of fatty liver Adenomyomatosis of the gallbladder. Please rule out cholecystitis: Leukocytosis probably reactive Reactive thrombocytosis, likely secondary to psoriatic arthritis Admit patient for inpatient management dispo [facility] Surgical consult appreciated their intake Right upper quadrant liver gallbladder ultrasound ordered. N.p.o. after midnight Pain and nausea management Continue IV hydration Repeat labs in the morning. Monitor for sepsis Monitor off antibiotic CMV IgG IgM ordered Labs reviewed. Normal liver function Continue monitor -History of psoriatic arthritis Patient on long-term biologic On gabapentin Diazepam for anxiety Morbidly obese. Educated on lifestyle changes. Weight reduction Lovenox for DVT prophylaxis. Protonix for GI bleed protection Full code Rounded on patient after nurse practitioner. Personally examined and interviewed patient. Agree with exam findings and care plan as documented.
[2024-06-03 23:42] VITALS: BP 156/70; PULSE 84; RESP 16; TEMP 36.6; O2SAT 98
--- NOTE | 2024-06-03 23:43 | PC.NURSE ---
[id number] received phone report from Twyla RN/ED nurse. Patient is a 63 yo female with intractable abdominal pain.
[2024-06-03] MEDS: 0.9 % SODIUM CHLORIDE 1000ML 1,000 ML 75 ML IV (23:53)
--- NOTE | 2024-06-03 23:53 | PC.NURSE ---
ARRIVED TO THE FLOOR VIA W/C AT 2350.
--- NOTE | 2024-06-03 23:55 | PC.NURSE ---
Patient arrived to floor via wheelchair from ED at 23:50.
[2024-06-04] VITALS (23 sets, daily range): BP systolic 132–182; BP diastolic 55–105; PULSE 78–90; RESP 11–22; TEMP 36.1–43; O2SAT 93–99; BMI 40.5
--- NOTE | 2024-06-04 | US_ITS ---
FINAL REPORT CLINICAL HISTORY: .RUQ PAIN COMPARISON: None FINDINGS: Sonographic images of the right upper quadrant were obtained. The pancreas is partially obscured. There is fatty infiltration of the liver. There is a small amount of sludge in the gallbladder. No stones are seen. There is no evidence of biliary ductal dilatation.The common duct measures 3 mm. Limited images of the right kidney are unremarkable. IMPRESSION: Fatty liver. Small amount of sludge in the gallbladder. Reviewed, Interpreted and Dictated by Bonifacio Ho MD Transcribed by Twyla Baptiste Authenticated and . [facility]
--- NOTE | 2024-06-04 00:17 | PC.NURSE ---
Pt set up password Devan
--- NOTE | 2024-06-04 05:58 | PC.NURSE ---
NPO ORDERED. TO HAVE SURGICAL CONSULT THIS AM. NO C/0 PAIN OR DISCOMFORT.
[2024-06-04 07:04] LABS: Basophils # 0.1 K/mm3 (0-0.2); Eosinophils # 0.4 K/mm3 (0.0-0.4)
[2024-06-04 07:05] LABS: Alanine Aminotransferase 10 U/L (12-78); Albumin Level 3.3 g/dl (3.5-5.0); Alkaline Phosphatase 81 U/L (38-126); Anion Gap 6.8 mEq/L (5-15); Aspartate Amino Transferase 15 U/L (14-36); Bilirubin,Total 0.8 mg/dl (0.2-1.3); Blood Urea Nitrogen 9 mg/dl (7-17); Calcium 8.5 mg/dl (8.4-10.2); Carbon Dioxide 29 mmol/L (22.0-30.0); Chloride 108 mmol/L (98-107); Creatinine Clearance Estimated 50 mL/min (50-200); Estimated Glomerular Filt Rate 72 ml/min (>60); GFR (African American) 88 ML/MIN (>60); Globulin 3.2 g/dL (1.3-3.2); Glucose 125 mg/dl (74-100); INR 0.97 (0.9-1.1); Magnesium 1.9 mg/dl (1.6-2.3); Potassium 3.8 mmoL/L (3.5-5.1); Prothrombin Time 10.9 seconds (10.1-12.5); Sodium 140 mmol/L (136-145); Total Protein,Serum 6.5 g/dl (6.3-8.2)
--- NOTE | 2024-06-04 07:39 | P.CONS_ITS ---
History of Present Illness *Admission Date: 06/03/24 *Reason for visit:: Right upper quadrant pain *History of present illness: This is a 63-year-old female seen in consultation from the Hospitalist Service for evaluation regarding right upper quadrant abdominal pain. Over the past few days she has been experiencing fairly significant epigastric and right upper quadrant pain with some radiation to the back and right shoulder. Significant nausea also noted. Intermittent/occasional fever. She has a known history of mild adenomyomatosis of the gallbladder which was confirmed once again on her most recent ultrasound. No jaundice. Symptoms are significantly worse with food intake. She has additional complaints of bloating and burping . Forwarded from admission H&P: This is a 63-year-old female with a history of obesity, anxiety, psoriatic arthritis, prediabetes presenting to the emergency department for evaluation of RUQ abdominal pain. Pain has been ongoing for the last 3 weeks with patient reports that she has had right abdominal pain that has been intermittent but worse with eating, over the last week. She has not been able to eat or drink very much secondary to the pain. She is also had nausea. No fevers, changes in bowel movements, urinary symptoms, or other concerns. Admitted for further work up. [facility] Disclaimer: The information contained in this section may have been updated after the patient was seen, as this information can be updated by other users. 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 current occupational exposures/hazards: No caffeine: Yes Meds Home Medications and Allergies Home Medications ?Medication ?Instructions ?Recorded ?Confirmed ?Type diazepam 5 mg tablet 5 mg PO TID PRN anxiety #90 tabs 04/10/23 06/04/24 Rx cyanocobalamin (vitamin B-12) 1,000 mcg IM WEEKLY 09/09/23 06/04/24 History 1,000 mcg/mL injection solution gabapentin 400 mg capsule 400 mg PO HS 09/09/23 06/04/24 History clobetasol 0.05 % topical cream 1 applic topical BID 2 weeks #60 09/10/23 06/04/24 Rx grams cholecalciferol (vitamin D3) 50 50 mcg PO DAILY 02/24/24 06/04/24 History mcg (2,000 unit) capsule folic acid 1 mg tablet 1 mg PO DAILY 02/24/24 06/04/24 History ibuprofen 800 mg tablet 800 mg PO TID PRN Pain (Scale 02/24/24 06/03/24 History Score 4-6) risankizumab-rzaa 150 mg/mL 150 mg SQ [id number] 02/24/24 06/04/24 History subcutaneous pen injector (Pao) New Prescriptions to Start Prescriptions: Allergies Allergy/AdvReac Type Severity Reaction Status Date / Time prednisone AdvReac Intermediate Other Verified 02/24/24 08:44 Exam (Inpt) Vital signs and Labs for Last 24 Hours: Temp Pulse Resp BP Pulse Ox O2 Del Method 97.9 F 78 18 164/80 H 97 Room Air 06/04/24 04:00 06/04/24 04:00 06/04/24 04:00 06/04/24 04:00 06/04/24 04:00 06/04/24 06:33 Laboratory Results - last 24 hr 06/03/24 20:08: WBC 16.6 H, RBC 5.39, Hgb 14.3, Hct 43.7, MCV 81.2, MCH 26.6 L, MCHC 32.7, RDW 14.7, Plt Count 452 H, MPV 7.9, Neut % (Auto) 70.7, Lymph % (Auto) 21.8, [place] % (Auto) 3.0, Eos % (Auto) 3.7, Baso % (Auto) 0.8, Neut # (Auto) 11.7 H, Lymph # (Auto) 3.6, [place] # (Auto) 0.5, Eos # (Auto) 0.6 H, Baso # (Auto) 0.1, Total Counted 100, Neutrophils % (Manual) 63, Lymphocytes % (Manual) 33, Monocytes % (Manual) 2, Eosinophils % (Manual) 2, Platelet Estimate Slight increase, Hypochromasia 1+, Sodium 140, Potassium 3.8, Chloride 107, Carbon Dioxide 26, Anion Gap 10.8, BUN 11, Creatinine 0.80, Estimated Creat Clear 99, Estimated GFR 72, Est GFR ( Amer) 88, Glucose 112 H, Lactate 1.2, Calcium 9.2, Total Bilirubin 0.6, AST 22, ALT 16, Alkaline Phosphatase 104, Total Protein 8.1, Albumin 4.2, Globulin 3.9 H, Albumin/Globulin Ratio 1.1, Lipase 83 06/03/24 20:10: Urine Color Yellow, Urine Appearance Clear, Urine pH 6.0, Ur Specific [place] <= 1.005, Urine Protein Negative, Urine Glucose (UA) Negative, Urine Ketones Negative, Urine Blood Negative, Urine Nitrate Negative, Urine Bilirubin Negative, Urine Urobilinogen 0.2, Ur Leukocyte Esterase Trace, Urine RBC None, Urine WBC None, Ur Squamous Epith Cells 3-5, Urine Bacteria None 06/04/24 06:27: PT 10.9, INR 0.97, Sodium 140, Potassium 3.8, Chloride 108 H, Carbon Dioxide 29, Anion Gap 6.8, BUN 9, Creatinine 0.80, Estimated Creat Clear 50, Estimated GFR 72, Est GFR ( Amer) 88, Glucose 125 H, Calcium 8.5, Magnesium 1.9, Total Bilirubin 0.8, AST 15 D, ALT 10 L D, Alkaline Phosphatase 81, Total Protein 6.5, Albumin 3.3 L D, Globulin 3.2, Albumin/Globulin Ratio 1.0 L I & O for Labs for Last 24 Hours: Intake & Output 06/01/24 06/02/24 06/03/24 06/04/24 11:59 11:59 11:59 11:59 Intake Total 248 / 248 Output Total 0 / 0 Balance 248 / 248 Weight 243 lb 5.011 oz Constitutional: no acute distress Respiratory: Absent respiratory distress Cardiac: Absent Tachycardia GI: Present soft and tenderness (ruq) Results Labs 06/03/24 20:08 06/04/24 06:27 Labs: Laboratory Results - last 24 hr 06/03/24 20:08: WBC 16.6 H, RBC 5.39, Hgb 14.3, Hct 43.7, MCV 81.2, MCH 26.6 L, MCHC 32.7, RDW 14.7, Plt Count 452 H, MPV 7.9, Neut % (Auto) 70.7, Lymph % (Auto) 21.8, [place] % (Auto) 3.0, Eos % (Auto) 3.7, Baso % (Auto) 0.8, Neut # (Auto) 11.7 H, Lymph # (Auto) 3.6, [place] # (Auto) 0.5, Eos # (Auto) 0.6 H, Baso # (Auto) 0.1, Total Counted 100, Neutrophils % (Manual) 63, Lymphocytes % (Manual) 33, Monocytes % (Manual) 2, Eosinophils % (Manual) 2, Platelet Estimate Slight increase, Hypochromasia 1+, Sodium 140, Potassium 3.8, Chloride 107, Carbon Dioxide 26, Anion Gap 10.8, BUN 11, Creatinine 0.80, Estimated Creat Clear 99, Estimated GFR 72, Est GFR ( Amer) 88, Glucose 112 H, Lactate 1.2, Calcium 9.2, Total Bilirubin 0.6, AST 22, ALT 16, Alkaline Phosphatase 104, Total Protein 8.1, Albumin 4.2, Globulin 3.9 H, Albumin/Globulin Ratio 1.1, Lipase 83 06/03/24 20:10: Urine Color Yellow, Urine Appearance Clear, Urine pH 6.0, Ur Specific [place] <= 1.005, Urine Protein Negative, Urine Glucose (UA) Negative, Urine Ketones Negative, Urine Blood Negative, Urine Nitrate Negative, Urine Bilirubin Negative, Urine Urobilinogen 0.2, Ur Leukocyte Esterase Trace, Urine RBC None, Urine WBC None, Ur Squamous Epith Cells 3-5, Urine Bacteria None 06/04/24 06:27: PT 10.9, INR 0.97, Sodium 140, Potassium 3.8, Chloride 108 H, Carbon Dioxide 29, Anion Gap 6.8, BUN 9, Creatinine 0.80, Estimated Creat Clear 50, Estimated GFR 72, Est GFR ( Amer) 88, Glucose 125 H, Calcium 8.5, Magnesium 1.9, Total Bilirubin 0.8, AST 15 D, ALT 10 L D, Alkaline Phosphatase 81, Total Protein 6.5, Albumin 3.3 L D, Globulin 3.2, Albumin/Globulin Ratio 1.0 L Assessment and Plan *Assessment and plan (1) Adenomyomatosis of gallbladder: Status: Acute Category: Medical Code(s): D13.5 - Benign neoplasm of extrahepatic bile ducts (2) Abdominal pain, RUQ: Status: Acute Category: Medical Code(s): R10.11 - Right upper quadrant pain Plan Follow-up pending ultrasound I discussed the likelihood of proceeding with cholecystectomy. I discussed the risks and benefits of laparoscopic cholecystectomy. She is willing to proceed pending results of ultrasound.
[2024-06-04 07:49] LABS: Basophils % 0.7 % (0.1-2.0); Eosinophils % 3.8 % (0.1-12.0); Hematocrit 40.4 % (37.0-47.0); Hemoglobin 12.8 g/dL (12.2-16.2); Lymphocytes # 2.7 K/mm3 (0.7-4.5); Lymphocytes % 26.3 % (10-50); Mean Corpuscular HGB Conc 31.8 g/dL (31.8-35.4); Mean Corpuscular Hemoglobin 26.1 pg (27.0-31.2); Mean Corpuscular Volume 82.1 fl (81-99); Mean Platelet Volume 8.1 fl (7.4-10.4); Monocytes # 0.3 K/mm3 (0.1-1.0); Neutrophils # 6.8 K/mm3 (1.8-7.8); Neutrophils % 66.2 % (37.0-80.0); Platelet Count 371 K/mm3 (142-424); Red Blood Count 4.92 M/mm3 (4.20-5.40); Red Cell Distribution Width 14.8 % (11.5-17.5); White Blood Count 10.2 K/mm3 (4.8-10.8)
--- NOTE | 2024-06-04 08:07 | HMH.PHAINT1 ---
Pharmacy Intervention Comments: HOME MEDICATION LIST VERIFIED USING LIST FROM OUTPATIENT PHARMACY AND [facility]
[2024-06-04] MEDS: PANTOPRAZOLE 40MG TABLET 40 MG PO (09:37)
--- NOTE | 2024-06-04 12:32 | EXP.ACUTE.PN ---
Subjective *Date: 06/04/24 *Time: 12:32 Interval history: Labs look good morning however still having significant right upper quadrant pain. Surgery evaluated. Obtaining right upper quadrant ultrasound. Will consider surgery thereafter. NPO. No vomiting but does have nausea. No shortness of breath. Denies any chest pain Medical Exam Vital signs and Labs for Last 24 Hours: Vital Signs Temp Pulse Pulse Resp BP BP Pulse Ox 06/04/24 12:07 97.6 F 80 20 149/70 H 96 06/04/24 10:37 06/04/24 09:41 06/04/24 07:54 98.0 F 78 18 142/64 H 95 06/04/24 06:33 06/04/24 05:00 06/04/24 04:00 97.9 F 78 18 164/80 H 97 06/04/24 02:59 06/04/24 01:00 06/04/24 00:31 98 06/04/24 00:00 98.1 F 90 18 156/70 H 97 06/03/24 23:42 98 F 84 16 156/70 H 06/03/24 20:08 98.0 F 98 H 15 171/77 H 99 O2 Del Method 06/04/24 12:07 Room Air 06/04/24 10:37 Room Air 06/04/24 09:41 Room Air 06/04/24 07:54 Room Air 06/04/24 06:33 Room Air 06/04/24 05:00 Room Air 06/04/24 04:00 Room Air 06/04/24 02:59 Room Air 06/04/24 01:00 Room Air 06/04/24 00:31 Room Air 06/04/24 00:00 Room Air 06/03/24 23:42 Room Air 06/03/24 20:08 Room Air Intake and Output 06/03/24 06/04/24 06/04/24 23:59 07:59 15:59 Intake Total 248 / 248 Output Total 0 / 0 Balance 248 / 248 Intake: Intake, Total IV Amount 248 / 248 0.9 % Sodium Chloride 1000ML 1, 248 / 248 000 ml @ 75 mls/hr IV .[id number] [facility] Rx#:[id number] Output: Output, Urine Amount 0 / 0 Other: Number of Unmeasured Voids 1 Weight 108.862 kg 110.365 kg Patient Weight 06/04/24 23:59 Weight 110.365 kg Laboratory Results - last 24 hr 06/03/24 20:08: WBC 16.6 H, RBC 5.39, Hgb 14.3, Hct 43.7, MCV 81.2, MCH 26.6 L, MCHC 32.7, RDW 14.7, Plt Count 452 H, MPV 7.9, Neut % (Auto) 70.7, Lymph % (Auto) 21.8, [place] % (Auto) 3.0, Eos % (Auto) 3.7, Baso % (Auto) 0.8, Neut # (Auto) 11.7 H, Lymph # (Auto) 3.6, [place] # (Auto) 0.5, Eos # (Auto) 0.6 H, Baso # (Auto) 0.1, Total Counted 100, Neutrophils % (Manual) 63, Lymphocytes % (Manual) 33, Monocytes % (Manual) 2, Eosinophils % (Manual) 2, Platelet Estimate Slight increase, Hypochromasia 1+, Sodium 140, Potassium 3.8, Chloride 107, Carbon Dioxide 26, Anion Gap 10.8, BUN 11, Creatinine 0.80, Estimated Creat Clear 99, Estimated GFR 72, Est GFR ( Amer) 88, Glucose 112 H, Lactate 1.2, Calcium 9.2, Total Bilirubin 0.6, AST 22, ALT 16, Alkaline Phosphatase 104, Total Protein 8.1, Albumin 4.2, Globulin 3.9 H, Albumin/Globulin Ratio 1.1, Lipase 83 06/03/24 20:10: Urine Color Yellow, Urine Appearance Clear, Urine pH 6.0, Ur Specific [place] <= 1.005, Urine Protein Negative, Urine Glucose (UA) Negative, Urine Ketones Negative, Urine Blood Negative, Urine Nitrate Negative, Urine Bilirubin Negative, Urine Urobilinogen 0.2, Ur Leukocyte Esterase Trace, Urine RBC None, Urine WBC None, Ur Squamous Epith Cells 3-5, Urine Bacteria None 06/04/24 06:27: WBC 10.2 D, RBC 4.92, Hgb 12.8 D, Hct 40.4, MCV 82.1, MCH 26.1 L, MCHC 31.8, RDW 14.8, Plt Count 371, MPV 8.1, Neut % (Auto) 66.2, Lymph % (Auto) 26.3, [place] % (Auto) 3.0, Eos % (Auto) 3.8, Baso % (Auto) 0.7, Neut # (Auto) 6.8, Lymph # (Auto) 2.7, [place] # (Auto) 0.3, Eos # (Auto) 0.4, Baso # (Auto) 0.1, PT 10.9, INR 0.97, Sodium 140, Potassium 3.8, Chloride 108 H, Carbon Dioxide 29, Anion Gap 6.8, BUN 9, Creatinine 0.80, Estimated Creat Clear 50, Estimated GFR 72, Est GFR ( Amer) 88, Glucose 125 H, Calcium 8.5, Magnesium 1.9, Total Bilirubin 0.8, AST 15 D, ALT 10 L D, Alkaline Phosphatase 81, Total Protein 6.5, Albumin 3.3 L D, Globulin 3.2, Albumin/Globulin Ratio 1.0 L I & O for Labs for Last 24 Hours: Intake & Output 06/01/24 06/02/24 06/03/24 06/04/24 23:59 23:59 23:59 23:59 Intake Total 248 / 248 Output Total 0 / 0 Balance 248 / 248 Weight 108.862 kg 110.365 kg Constitutional: Present no acute distress, morbidly obese and cooperative Head: Present atraumatic and normocephalic ENT: Present normal exam Respiratory: Present normal respiratory effort; Absent rhonchi, wheezes or crackles Cardiac: Present Reg Rate and Rhythm GI: Present soft, distention, tenderness (Right upper quadrant most prominent, mild tenderness in right lower and left upper as well) and normal bowel sounds Extremities: Present normal inspection and full ROM Skin: Present intact; Absent erythema Neuro: Present Grossly Intact, alert, awake, oriented x 3 and moves all extremities Assessment and Plan *Assessment and plan (1) Abdominal pain, RUQ: Status: Acute Category: Medical Code(s): R10.11 - Right upper quadrant pain (2) Adenomyomatosis of gallbladder: Status: Acute Category: Medical Code(s): D13.5 - Benign neoplasm of extrahepatic bile ducts (3) Hepatomegaly: Status: Acute Category: Medical Code(s): R16.0 - Hepatomegaly, not elsewhere classified (4) Fatty (change of) liver, not elsewhere classified: Status: Acute Category: Medical Code(s): K76.0 - Fatty (change of) liver, not elsewhere classified (5) Leukocytosis: Status: Acute Qualifiers: Leukocytosis type: unspecified Qualified Code(s): D72.829 - Elevated white blood cell count, unspecified Category: Medical Code(s): D72.829 - Elevated white blood cell count, unspecified (6) Reactive thrombocytosis: Status: Acute Category: Medical Code(s): D75.838 - Other thrombocytosis (7) Psoriatic arthritis: Status: Acute Category: Medical Code(s): L40.50 - Arthropathic psoriasis, unspecified (8) BMI 39.0-39.9,adult: Status: Acute Category: Medical Code(s): Z68.39 - Body mass index [BMI] 39.0-39.9, adult Plan 63-year-old female with a history of obesity, anxiety, psoriatic arthritis, prediabetes presenting to the emergency department for evaluation of RUQ abdominal pain. Pain has been ongoing for the last 3 weeks with patient reports that she has had right abdominal pain that has been intermittent but worse with eating, over the last week. On arrival patient presented with significant right upper quadrant with tenderness and guarding, was not able to tolerate much p.o. the ER. CT of the abdomen was obtained, hepatomegaly with no obvious fluid around the gallbladder or gallbladder wall thickening was seen. Labs are significant for leukocytosis and thrombocytosis. ED requested admission. Finding discussed. I agree for inpatient management. Still having pain this morning. Obtaining right upper quadrant ultrasound. Liver enzymes remain normal. Further management pending ultrasound and surgical decision making. Problems addressed as follows: Intractable right upper quadrant abdominal pain. With nausea and vomiting: fatty liver Adenomyomatosis of the gallbladder suspected cholecystitis/gallbladder dysfunction Leukocytosis probably reactive Reactive thrombocytosis, likely secondary to psoriatic arthritis Surgery consulted, discussed case this morning, if gallstones on ultrasound, will plan for removal today. Remain NPO. Patient symptoms and exam clinically consistent with cholecystitis. - Right upper quadrant liver gallbladder ultrasound ordered. N.p.o. Morphine 4 mg IV every 4 hours as needed for severe pain. Monitor for toxicity. -CBC, CMP, magnesium ordered for the morning. Liver function normal with bilirubin 0.8, AST and ALT 15 and 10 respectively. Alk phos 81. Kidney function normal with BUN 9, creatinine 0.8 CMV IgG IgM ordered -History of psoriatic arthritis Patient on long-term biologic, holding during admission. Continue gabapentin per home regimen 100 mg twice daily Morbidly obese. Complicates all aspects of her care Lovenox for DVT prophylaxis Protonix for GI bleed protection Full code N.p.o.
--- NOTE | 2024-06-04 13:48 | P.PNANES_ITS ---
[facility] Disclaimer: The information contained in this section may have been updated after the patient was seen, as this information can be updated by other users. 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 current occupational exposures/hazards: No caffeine: Yes [facility] Anesthesia Checklist Patient Identification Patient Identification: Arm Band Structural Data Admitted From: Home Planned Operative Procedure/s: Laparoscopic Cholecystectomy Consent for Planned Operative Procedure(s) Verified: Yes Verified Documents: Surgical Consent and History and Physical NPO Status Verified Time NPO: 00:00 Additional verifications Anesthesia Reactions: Yes (PONV) Airway Assessment Mallampati Score:: Class II C-Spine Mobility Assessed: Yes TMJ Mobility Assessed: Yes Dentition: Good Dentition Neurological Assessment Level of Consciousness: Awake, Alert and Appropriate Anesthesia Plan Anesthesia Risk discussed: Yes Anesthesia Plan: Verified ASA Class: III Anesthesia Type: General
--- NOTE | 2024-06-04 14:10 | PC.NURSE ---
patient out of room at this time.
--- NOTE | 2024-06-04 14:15 | PC.NURSE ---
Pt. is aox4, upadlib, 20g L AC NS @ 75Ml/HR, off the floor for surgery.
[2024-06-04] MEDS: CEFAZOLIN SODIUM 2 GM in 0.9 % SODIUM CHLORIDE 100 ML IV (14:45)
[2024-06-04] MEDS: LIDOCAINE 1% 20ML MDV 20 ML (15:26)
--- NOTE | 2024-06-04 16:14 | EXP.OP.NOTE ---
Date of procedure: 06/04/24 Pre-op Diagnosis:: Right upper quadrant pain Biliary sludge Post-op Diagnosis:: Acute on chronic cholecystitis Procedure performed:: Laparoscopic cholecystectomy Surgeon:: Edgar Simpson MD ARMORING MACHINE OPERATOR:: Dom Rivera Anesthesia: GETA Estimated blood loss (mL): 15 Operative findings:: Patchy inflammatory changes along anterior abdominal wall with omental adhesions Gallbladder distention Gallbladder wall thickening with weeping serosa Pending hydrops Operative note:: After informed consent was obtained, the patient was taken to the operating room and placed in the supine position. General anesthesia was induced and the abdomen was prepped and draped in a sterile fashion. After infiltration with local anesthetic an infraumbilical incision was made. A Veress needle was placed in position. The abdomen was insufflated. A 5 mm optical trocar was placed in position. Visualization was limited secondary to omental adhesions. A 5 mm trocar was placed under direct visualization in the left upper quadrant to improve visualization. Omental adhesions were bluntly taken down. Under direct visualization, a 12 mm trocar was placed in the subxiphoid position and 2 additional 5 mm trocars were placed in the right upper quadrant. The gallbladder was elevated up and over the liver margin. Distention, wall thickening, and serosal weeping all noted. The patient essentially had pending hydrops . The tissue around the cystic duct was carefully dissected. 3 clips were placed proximally and the duct was transected with harmonic seb. Harmonic seb were then utilized to dissect the gallbladder away from the liver margin with careful attention to the control of the cystic artery. The gallbladder was placed in a retrieval bag and removed through the subxiphoid trocar site. The right upper quadrant was thoroughly irrigated. No active bleeding or bile leak was noted. Fascia at the subxiphoid trocar site was reapproximated utilizing the NeoClose device. The remaining trocars were removed. All wounds were irrigated and skin was closed with 4-0 Monocryl in an interrupted mattress fashion to facilitate hemostasis. The patient's anesthetic agents were reversed and extubation was completed prior to transfer to recovery in stable condition. Condition: stable Disposition: PACU Specimens:: Gallbladder Complications:: No immediate
--- NOTE | 2024-06-04 17:00 | SUR.PHASEI ---
Toradol 30 mg IV, Phenergan 12.5 mg IV, and Zofran 4 mg ODT given in PACU per anesthesia. Charted on anesthesia record.
--- NOTE | 2024-06-04 17:03 | EXP.ANES.I ---
[facility] Anesthesia Record Part I Anesthesia Record I Intake, IV Amount: 800 Hydration: Adequate Estimated blood loss (mL): 15 Urine output (mL): 0 Blood Products used (#): none Blood Pressure: 151/104 SaO2: 94 Pulse Rate: 85 Airway Patency: Patent Respiratory Rate: 16 Temperature: 97.8 F Patient is:: Drowsy and Stable Stable to PACU at:: 16:20 Comments:: Became very aggitated upon awakening. I.V. pulled out by patient, and restarted. Sublingual Zonfran, 4 mg. Phenergan 12.5 mg I.V. Toradol 30 mg I.v. 1654, calm and cooperative.
[2024-06-04] MEDS: PIPERCILLIN/TAZO 3.375 GM in 0.9 % SODIUM CHLORIDE 50 ML IV ×2 (17:20→21:32)
--- NOTE | 2024-06-04 17:22 | PC.NURSE ---
Pt. back to floor from surgery. 5 lap sites with serosang scant amount noted, vss.
[2024-06-04] MEDS: MORPHINE 4MG/ML SYRINGE 4 MG IV (19:22)
[2024-06-04] MEDS: 0.9 % SODIUM CHLORIDE 1000ML 1,000 ML 75 ML IV (21:32)
[2024-06-05] VITALS: BP 146/70; PULSE 76; RESP 16; TEMP 36.8; O2SAT 96
[2024-06-05] MEDS: MORPHINE 4MG/ML SYRINGE 4 MG IV (02:47)
--- NOTE | 2024-06-05 03:46 | PC.NURSE ---
PATIENT HAS BEEN MEDICATED X 2 WITH MORPHINE FOR PAIN 05/13. 5 LAP INCISIONS WITH DRESSINGS C/D/I. POSITIVE BOWEL SOUNDS X 4. uSING INCENTIVE SPIROMETER INDEPENDENTLY. TOLERATING FULL LIQ DIET. AMBULATORY TO BR SBA. VITAL SIGNS STABLE. AFEBRILE.
[2024-06-05 04:00] VITALS: BP 116/79; PULSE 79; RESP 16; TEMP 36.7; O2SAT 95; BMI 41.6
[2024-06-05] MEDS: PIPERCILLIN/TAZO 3.375 GM in 0.9 % SODIUM CHLORIDE 50 ML IV ×2 (04:10→10:28)
[2024-06-05 06:15] LABS: Cytomegalovirus (CMV) Ab, IgG <0.60 U/mL (0.00-0.59); Cytomegalovirus (CMV) Ab, IgM <30.0 AU/mL (0.0-29.9)
[2024-06-05 07:01] LABS: Albumin Level 3.3 g/dl (3.5-5.0); Chloride 110 mmol/L (98-107); Potassium 4.2 mmoL/L (3.5-5.1); Sodium 140 mmol/L (136-145)
[2024-06-05 07:03] LABS: Blood Urea Nitrogen 8 mg/dl (7-17); Creatinine Clearance Estimated 50 mL/min (50-200); Estimated Glomerular Filt Rate 63 ml/min (>60); GFR (African American) 77 ML/MIN (>60)
[2024-06-05 07:04] LABS: Alanine Aminotransferase 27 U/L (12-78); Albumin/Globulin Ratio 1.1 (1.1-1.8); Alkaline Phosphatase 78 U/L (38-126); Anion Gap 6.2 mEq/L (5-15); Aspartate Amino Transferase 44 U/L (14-36); Bilirubin,Total 0.9 mg/dl (0.2-1.3); Calcium 8.2 mg/dl (8.4-10.2); Carbon Dioxide 28 mmol/L (22.0-30.0); Glucose 109 mg/dl (74-100); Total Protein,Serum 6.3 g/dl (6.3-8.2)
[2024-06-05 07:25] LABS: Basophils # 0.1 K/mm3 (0-0.2); Basophils % 0.6 % (0.1-2.0); Eosinophils # 0.3 K/mm3 (0.0-0.4); Eosinophils % 2.4 % (0.1-12.0); Hematocrit 38.4 % (37.0-47.0); Hemoglobin 11.9 g/dL (12.2-16.2); Lymphocytes # 3.4 K/mm3 (0.7-4.5); Mean Corpuscular HGB Conc 30.9 g/dL (31.8-35.4); Mean Corpuscular Hemoglobin 25.4 pg (27.0-31.2); Mean Corpuscular Volume 82.2 fl (81-99); Mean Platelet Volume 7.9 fl (7.4-10.4); Monocytes # 0.5 K/mm3 (0.1-1.0); Monocytes % 3.8 % (1.7-9.3); Neutrophils # 7.5 K/mm3 (1.8-7.8); Neutrophils % 64.1 % (37.0-80.0); Platelet Count 379 K/mm3 (142-424); Red Blood Count 4.67 M/mm3 (4.20-5.40); Red Cell Distribution Width 14.7 % (11.5-17.5); White Blood Count 11.7 K/mm3 (4.8-10.8)
[2024-06-05 08:00] VITALS: BP 138/66; PULSE 91; RESP 17; TEMP 36.6; O2SAT 97
[2024-06-05] MEDS: PANTOPRAZOLE 40MG TABLET 40 MG PO (08:03)
[2024-06-05] MEDS: ACETAMINOPHEN 325MG TAB 650 MG PO (08:05)
--- NOTE | 2024-06-05 08:49 | P.PNANES_ITS ---
[facility] Anesthesia Record Part II Anesthesia Record Part II Discharge Time: 17:10 Destination: Medical Surgical Department PACU nurse assessment reviewed?: Yes Patient Condition:: Good Anesthesia Complications:: None Swallowing reflex intact?: Yes Airway Patency: Patent Cyanosis?: No Blood Pressure: 156/80 SaO2: 95 Respiratory Rate: 12 Pulse Rate: 84 Temperature: 98.3 F Mental Status: Alert & Oriented Pain level:: 0 Nausea and/or vomitting:: None Intake, IV Amount: 0 Hydration: Adequate
[2024-06-05 08:50] VITALS: BP 156/80; PULSE 84; RESP 12; TEMP 36.8; O2SAT 95
--- NOTE | 2024-06-05 08:55 | P.PN_ITS ---
Subjective Patient reports: no new complaints and feels better Exam Data for Last 24 hours Vital signs and Labs for Last 24 Hours: Temp Pulse Resp BP Pulse Ox O2 Del Method O2 Flow Rate 98.1 F 79 12 116/79 95 Room Air 2 06/05/24 04:00 06/05/24 04:00 06/05/24 08:50 06/05/24 04:00 06/05/24 04:00 06/05/24 07:19 06/04/24 18:30 Laboratory Results - last 24 hr 06/04/24 06:27: CMV IgG Ab <0.60, CMV IgM Ab <30.0 06/05/24 06:30: WBC 11.7 H, RBC 4.67, Hgb 11.9 L, Hct 38.4, MCV 82.2, MCH 25.4 L , MCHC 30.9 L, RDW 14.7, Plt Count 379, MPV 7.9, Neut % (Auto) 64.1, Lymph % (Auto) 29.0, [place] % (Auto) 3.8, Eos % (Auto) 2.4, Baso % (Auto) 0.6, Neut # (Auto) 7.5, Lymph # (Auto) 3.4, [place] # (Auto) 0.5, Eos # (Auto) 0.3, Baso # (Auto) 0.1, Sodium 140, Potassium 4.2, Chloride 110 H, Carbon Dioxide 28, Anion Gap 6.2, BUN 8, Creatinine 0.90, Estimated Creat Clear 50, Estimated GFR 63, Est GFR ( Amer) 77, Glucose 109 H, Calcium 8.2 L, Magnesium 2.0, Total Bilirubin 0.9, AST 44 H D, ALT 27 D, Alkaline Phosphatase 78, Total Protein 6.3, Albumin 3.3 L, Globulin 3.0, Albumin/Globulin Ratio 1.1 I & O for Last 24 hours: Intake & Output 06/02/24 06/03/24 06/04/24 06/05/24 11:59 11:59 11:59 11:59 Intake Total 248 / 248 2971 / 2971 Output Total 0 / 0 4 / 4 Balance 248 / 248 2967 / 2967 Weight 243 lb 5.011 oz 250 lb 3.2 oz Constitutional Constitutional: no acute distress *Routine Respiratory Exam Respiratory: Absent respiratory distress *Routine Cardiovascular Exam Cardiovascular: Absent tachycardia *Routine Abdominal Exam Abdominal: Present soft Comments: Post-operative tenderness noted. Dressings intact. No evidence of erythema or active bleeding. Progress Note: A&P Assessment and plan (1) Acute cholecystitis: Status: Acute Assessment and plan: Overall, doing well status post laparoscopic cholecystectomy. Okay from surgical standpoint for discharge home with close outpatient follow- up.
--- NOTE | 2024-06-05 11:33 | P.DS_ITS ---
General Admission date:: 06/03/24 Discharge date: 06/05/24 HPI HPI HPI: This is a 63-year-old female seen in consultation from the Hospitalist Service for evaluation regarding right upper quadrant abdominal pain. Over the past few days she has been experiencing fairly significant epigastric and right upper quadrant pain with some radiation to the back and right shoulder. Significant nausea also noted. Intermittent/occasional fever. She has a known history of mild adenomyomatosis of the gallbladder which was confirmed once again on her most recent ultrasound. No jaundice. Symptoms are significantly worse with food intake. She has additional complaints of bloating and burping . Forwarded from admission H&P: This is a 63-year-old female with a history of obesity, anxiety, psoriatic arthritis, prediabetes presenting to the emergency department for evaluation of RUQ abdominal pain. Pain has been ongoing for the last 3 weeks with patient reports that she has had right abdominal pain that has been intermittent but worse with eating, over the last week. She has not been able to eat or drink very much secondary to the pain. She is also had nausea. No fevers, changes in bowel movements, urinary symptoms, or other concerns. Admitted for further work up. Hospital Course Hospital Course Hospital Course: 63-year-old female with a history of obesity, anxiety, psoriatic arthritis, prediabetes presenting to the emergency department for evaluation of RUQ abdominal pain. Pain has been ongoing for the last 3 weeks with patient reports that she has had right abdominal pain that has been intermittent but worse with eating, over the last week. On arrival patient presented with significant right upper quadrant with tenderness and guarding, was not able to tolerate much p.o. the ER. CT of the abdomen was obtained, hepatomegaly with no obvious fluid around the gallbladder or gallbladder wall thickening was seen. Labs are significant for leukocytosis and thrombocytosis. ED requested admission. Finding discussed. Admitted to medicine. Surgical evaluation performed. Given clinical symptoms significant for cholecystitis, taken for cholecystectomy. Found to have weeping gallbladder. Tolerated procedure well. Symptoms resolved after surgery. Tolerating p.o. intake. Stable to discharge home. Problems addressed as follows: Intractable right upper quadrant abdominal pain. With nausea and vomiting: fatty liver Adenomyomatosis of the gallbladder suspected cholecystitis/gallbladder dysfunction Leukocytosis probably reactive Reactive thrombocytosis, likely secondary to psoriatic arthritis Patient admitted with Sampson's triad. In findings with gallstone/sludge in gallbladder. Surgery consulted. Taken for cholecystectomy. Tolerated procedure well. Had significant improvement in her symptoms after extraction of gallbladder. Clinical appearance on surgical eval and exam both consistent with cholecystitis. Given improvement in patient's symptoms, tolerance of p.o. intake, patient deemed stable to discharge home. Will continue pain regimen at discharge. Advance to regular diet. Follow-up with surgery in the outpatient setting. Of note, CMV labs were negative. White count improving on day of discharge 11.7. Kidney function and electrolytes normal. -History of psoriatic arthritis Patient on long-term biologic, holding during admission. Continue gabapentin per home regimen 100 mg twice daily Morbidly obese. Complicates all aspects of her care Exam Data for Last 24 hours Vital signs and Labs for Last 24 Hours: Temp Pulse Resp BP Pulse Ox O2 Del Method O2 Flow Rate 97.8 F 91 H 12 138/66 97 Room Air 2 06/05/24 08:00 06/05/24 08:00 06/05/24 08:50 06/05/24 08:00 06/05/24 08:00 06/05/24 09:29 06/04/24 18:30 Laboratory Results - last 24 hr 06/04/24 06:27: CMV IgG Ab <0.60, CMV IgM Ab <30.0 06/05/24 06:30: WBC 11.7 H, RBC 4.67, Hgb 11.9 L, Hct 38.4, MCV 82.2, MCH 25.4 L , MCHC 30.9 L, RDW 14.7, Plt Count 379, MPV 7.9, Neut % (Auto) 64.1, Lymph % (Auto) 29.0, [place] % (Auto) 3.8, Eos % (Auto) 2.4, Baso % (Auto) 0.6, Neut # (Auto) 7.5, Lymph # (Auto) 3.4, [place] # (Auto) 0.5, Eos # (Auto) 0.3, Baso # (Auto) 0.1, Sodium 140, Potassium 4.2, Chloride 110 H, Carbon Dioxide 28, Anion Gap 6.2, BUN 8, Creatinine 0.90, Estimated Creat Clear 50, Estimated GFR 63, Est GFR ( Amer) 77, Glucose 109 H, Calcium 8.2 L, Magnesium 2.0, Total Bilirubin 0.9, AST 44 H D, ALT 27 D, Alkaline Phosphatase 78, Total Protein 6.3, Albumin 3.3 L, Globulin 3.0, Albumin/Globulin Ratio 1.1 I & O for Last 24 hours: Intake & Output 06/02/24 06/03/24 06/04/24 06/05/24 23:59 23:59 23:59 23:59 Intake Total 2743 / 2743 1096 / 1096 Output Total Balance 2740 / 2740 1095 / 1095 Weight 108.862 kg 110.365 kg 113.489 kg Constitutional Constitutional: no acute distress, morbidly obese and cooperative *Routine HEENT Exam Head: Present normocephalic Eye: Present EOMI and PERRL ENT: Present mucous membranes moist *Routine Neck Exam Neck: Present supple; Absent lymphadenopathy *Routine Respiratory Exam Respiratory: Present CTA bilaterally; Absent rhonchi, wheezes or crackles *Routine Cardiovascular Exam Cardiovascular: Present RRR *Routine Abdominal Exam Abdominal: Present soft, normoactive bowel sounds and tenderness (Mild, over surgical incisions. Right upper quadrant pain is improved) *Routine Rectal Exam Patient deferred: visual exam *Routine Exam Patient deferred: external exam *Routine Extremities Exam Extremities: Absent cyanosis, clubbing or edema *Routine Skin Exam Skin: Present warm; Absent rash *Routine Neurological Exam Neurological: Present alert, oriented X3 and moving all extremities; Absent altered mental status Results Data Completed and Pending Labs on day of discharge: Labs from last 24 hours 06/05/24 06/04/24 06:30 06:27 WBC 11.7 H RBC 4.67 Hgb 11.9 L Hct 38.4 MCV 82.2 MCH 25.4 L MCHC 30.9 L RDW 14.7 Plt Count 379 MPV 7.9 Neut % (Auto) 64.1 Lymph % (Auto) 29.0 [place] % (Auto) 3.8 Eos % (Auto) 2.4 Baso % (Auto) 0.6 Neut # (Auto) 7.5 Lymph # (Auto) 3.4 [place] # (Auto) 0.5 Eos # (Auto) 0.3 Baso # (Auto) 0.1 Sodium 140 Potassium 4.2 Chloride 110 H Carbon Dioxide 28 Anion Gap 6.2 BUN 8 Creatinine 0.90 Estimated Creat Clear 50 Estimated GFR 63 Est GFR ( Amer) 77 Glucose 109 H Calcium 8.2 L Magnesium 2.0 Total Bilirubin 0.9 AST 44 H D ALT 27 D Alkaline Phosphatase 78 Total Protein 6.3 Albumin 3.3 L Globulin 3.0 Albumin/Globulin Ratio 1.1 CMV IgG Ab <0.60 CMV IgM Ab <30.0 DS: Diagnosis Discharge Diagnosis (1) Acute cholecystitis: Status: Acute Code(s): K81.0 - Acute cholecystitis Meds Home Medications and Allergies Home Medications ?Medication ?Instructions ?Recorded ?Confirmed ?Type cyanocobalamin (vitamin B-12) 1,000 mcg IM WEEKLY 09/09/23 06/04/24 History 1,000 mcg/mL injection solution cholecalciferol (vitamin D3) 50 50 mcg PO DAILY 02/24/24 06/04/24 History mcg (2,000 unit) capsule folic acid 1 mg tablet 1 mg PO DAILY 02/24/24 06/04/24 History ibuprofen 800 mg tablet 800 mg PO TID PRN Pain (Scale 02/24/24 06/03/24 History Score 4-6) risankizumab-rzaa 150 mg/mL 150 mg SQ [id number] 02/24/24 06/04/24 History subcutaneous pen injector (Skyrizi) ergocalciferol (vitamin D2) 1,250 50,000 unit PO WEEKLY 06/04/24 06/04/24 History mcg (50,000 unit) capsule (Vitamin D2) famotidine 20 mg tablet 20 mg PO DAILY 06/04/24 06/04/24 History gabapentin 100 mg capsule 100 mg PO BID 06/04/24 06/04/24 History oxycodone-acetaminophen 5 mg-325 1 tab PO Q6H PRN pain #11 tabs 06/05/24 Rx mg tablet New Prescriptions to Start Prescriptions: oxycodone-acetaminophen Dom Puri Allergies Allergy/AdvReac Type Severity Reaction Status Date / Time prednisone AdvReac Intermediate Other Verified 02/24/24 08:44 Discharge Plan Disposition Patient Disposition: Home, Self-Care Condition: Fair Follow up Plan Follow up with: Inez Hart APRN [Primary Care Provider] - 06/12/24 9:45 am Edgar Simpson MD [Staff Physician] - 06/10/24 2:30 pm Prescriptions/Medication Reconciliation: New oxycodone-acetaminophen 5-325 mg tablet 1 tab PO Q6H PRN (Reason: pain) Qty: 11 0RF Continued cholecalciferol (vitamin D3) 50 mcg (2,000 unit) capsule 50 mcg PO DAILY cyanocobalamin (vitamin B-12) 1,000 mcg/mL solution 1,000 mcg IM WEEKLY folic acid 1 mg tablet 1 mg PO DAILY ibuprofen 800 mg tablet 800 mg PO TID PRN (Reason: Pain (Scale Score 4-6)) Skyrizi 150 mg/mL pen injector 150 mg SQ [id number] famotidine 20 mg tablet 20 mg PO DAILY gabapentin 100 mg capsule 100 mg PO BID ergocalciferol (vitamin D2) [Vitamin D2] 1,250 mcg (50,000 unit) capsule 50,000 unit PO WEEKLY Problem Reconciliation Problems Reviewed?: Yes Patient Discharge Instructions ACTIVITY: Continue current activity DIET: continue same diet, advance to your usual diet and low fat, low cholesterol Patient Instructions: DI for Abdominal Pain-Adult, DI for Surgical Site Infection, DI for Laparoscopic Cholecystectomy Print Language: Surinamese Providers Primary Care Provider: Inez Hart Admit Provider: Dom Puri Attending Provider: Dom Puri
== END 2024-06-05 13:06 | disposition home or self-care (01) ==
LOC: ER 20:02 → 2ND 23:54
PROVIDERS: Nurse Practitioner Family; Surgery; Admitting Provider Internal Medicine Adolescent Medicine; Emergency Provider Emergency Medicine; PCP Nurse Practitioner Family; Visit Provider Internal Medicine Adolescent Medicine
PROC: 0FT44ZZ Resection of Gallbladder, Percutaneous Endoscopic Approach (ICD-10-PCS; CPT 47562; principal; 2024-06-04 13:00)
DX: D13.5 Benign neoplasm of extrahepatic bile ducts (principal); K81.0 Acute cholecystitis; L40.50 Arthropathic psoriasis, unspecified; Z79.899 Other long term (current) drug therapy; E66.01 Morbid (severe) obesity due to excess calories; Z68.41 Body mass index [BMI] 40.0-44.9, adult; K76.0 Fatty (change of) liver, not elsewhere classified
CPT/HCPCS: 47562; 36415; 74177; 76705; 80053; 81001; 83605; 83690; 83735; 85007; 85025; 85027; 85610; 86644; 86645; 93005; 99285; J3490; G0378; J0131; J0690; J1885; J2250; J2270; J2405; J2543; J3010; J7120; Q9967; S0028

== ENCOUNTER 2024-06-12 13:56 | Outpatient (CLI) | payer BC, SELFPAY | END 2024-06-12 23:59 | disposition home or self-care (01) | LOC: LAB.DROPOF 13:57 | PROVIDERS: PCP Nurse Practitioner Family; Visit Provider Nurse Practitioner Family | DX: N15.9 Renal tubulo-interstitial disease, unspecified (principal) | CPT/HCPCS: 87086; 87088; 87186 ==

== ENCOUNTER 2024-07-27 08:07 | Day surgery (SDC) | payer BC, SELFPAY ==
[2024-07-20 17:01] VITALS: BMI 38.2
[2024-07-27] VITALS (7 sets, daily range): BP systolic 130–142; BP diastolic 64–88; PULSE 69–78; RESP 18; TEMP 36.1–36.2; O2SAT 95–97
[2024-07-27] MEDS: LACTATED RINGERS 1000ML 1,000 ML 100 ML IV (08:38)
--- NOTE | 2024-07-27 09:04 | EXP.ANES.CKL ---
[facility] Disclaimer: The information contained in this section may have been updated after the patient was seen, as this information can be updated by other users. 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 current occupational exposures/hazards: No caffeine: Yes [facility] Anesthesia Checklist Patient Identification Patient Identification: Arm Band and Verbal (Name & ) Structural Data Admitted From: Home Planned Operative Procedure/s: Colonoscopy Consent for Planned Operative Procedure(s) Verified: Yes Verified Documents: Surgical Consent and History and Physical NPO Status Verified Time NPO: 00:00 Additional verifications Anesthesia Reactions: Yes (PONV) Airway Assessment Mallampati Score:: Class II C-Spine Mobility Assessed: Yes TMJ Mobility Assessed: Yes Dentition: Good Dentition Neurological Assessment Level of Consciousness: Awake Hx Seizures: No Numbness or tingling in extremities: No Anesthesia Plan Anesthesia Risk discussed: Yes Anesthesia Plan: Verified ASA Class: II Anesthesia Type: MAC
--- NOTE | 2024-07-27 10:06 | EXP.HP ---
History of Present Illness *Admission Date: 07/27/24 *Reason for visit:: Screening colonoscopy *History of present illness: Mrs. Maldonado is a 63-year-old female who is here for screening colonoscopy [facility] Disclaimer: The information contained in this section may have been updated after the patient was seen, as this information can be updated by other users. 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 current occupational exposures/hazards: No caffeine: Yes Review of Systems Review of Systems Review of systems (narrative): Negative *Cardiovascular Comments: Negative *Gastrointestinal Comments: Negative *Genitourinary Comments: Negative *Musculoskeletal Comments: Negative *Neurologic Comments: Negative Meds Home Medications and Allergies Home Medications ?Medication ?Instructions ?Recorded ?Confirmed ?Type cyanocobalamin (vitamin B-12) 1,000 mcg IM WEEKLY 09/09/23 07/27/24 History 1,000 mcg/mL injection solution cholecalciferol (vitamin D3) 50 50 mcg PO DAILY 02/24/24 07/27/24 History mcg (2,000 unit) capsule folic acid 1 mg tablet 1 mg PO DAILY 02/24/24 07/27/24 History ibuprofen 800 mg tablet 800 mg PO TID PRN Pain (Scale 02/24/24 07/27/24 History Score 4-6) risankizumab-rzaa 150 mg/mL 150 mg SQ [id number] 02/24/24 07/27/24 History subcutaneous pen injector (Pao) ergocalciferol (vitamin D2) 1,250 50,000 unit PO WEEKLY 06/04/24 07/27/24 History mcg (50,000 unit) capsule (Vitamin D2) famotidine 20 mg tablet 20 mg PO DAILY 06/04/24 07/27/24 History gabapentin 100 mg capsule 100 mg PO BID 06/04/24 07/27/24 History diazepam 5 mg tablet (Valium) 5 mg PO DAILY PRN anxiety #30 tabs 06/09/24 07/27/24 Rx duloxetine 30 mg capsule,delayed 30 mg PO DAILY #90 caps 06/09/24 07/27/24 Rx release (Cymbalta) fluconazole 150 mg tablet 150 mg PO DAILY 7 days #7 tabs 06/12/24 07/27/24 Rx nystatin 100,000 unit/gram topical 1 applic topical QID #30 grams 06/12/24 07/27/24 Rx cream phenazopyridine 100 mg tablet 100 mg PO TID PRN pain #20 tabs 06/12/24 07/27/24 Rx (Pyridium) nitrofurantoin 100 mg PO BID 7 days #14 caps 06/15/24 07/27/24 Rx monohydrate/macrocrystals 100 mg capsule (Macrobid) New Prescriptions to Start Prescriptions: Allergies Allergy/AdvReac Type Severity Reaction Status Date / Time prednisone AdvReac Intermediate Other Verified 07/27/24 08:44 Exam Data for Last 24 hours Vital signs and Labs for Last 24 Hours: Temp Pulse Resp BP Pulse Ox O2 Del Method O2 Flow Rate 97.1 F L 78 18 142/64 H 95 Nasal Cannula 6 07/27/24 08:45 07/27/24 08:45 07/27/24 08:45 07/27/24 08:45 07/27/24 08:45 07/27/24 09:57 07/27/24 09:57 *Routine HEENT Exam Head: Present normocephalic Eye: Present EOMI and PERRL ENT: Present mucous membranes moist *Routine Neck Exam Neck: Present supple *Routine Respiratory Exam Respiratory: Present CTA bilaterally *Routine Cardiovascular Exam Cardiovascular: Present RRR *Routine Abdominal Exam Abdominal: Present soft and normoactive bowel sounds; Absent tenderness *Routine Rectal Exam Rectal:: deferred *Routine Genitalia Exam Genitalia:: deferred *Routine Extremities Exam Extremities: Absent cyanosis, clubbing or edema *Routine Skin Exam Skin: Present warm; Absent rash *Routine Neurological Exam Neurological: Present alert and oriented X3 Additional Findings:: Physical Examination: Gen.: The patient is a well-developed well-nourished individual in no acute distress HEENT: Normocephalic/atraumatic extraocular movements are intact anicteric Neck: Supple no lymphadenopathy Chest: Clear to auscultation Cardiovascular: Regular rate and rhythm Abdomen: Normoactive bowel sounds soft, nontender, nondistended, no hepatosplenomegaly Extremities: No edema Assessment and Plan *Assessment and plan (1) Screening for colon cancer: Status: Acute Category: Medical Code(s): Z12.11 - Encounter for screening for malignant neoplasm of colon Plan Patient has been seen preoperatively before colonoscopy by anesthesia and is stable from a cardiovascular and respiratory standpoint. 1. Proceed with screening colonoscopy
--- NOTE | 2024-07-27 10:10 | HMH.PROCNOTE ---
[facility] Procedure Note Date: 07/27/24 Time: 10:29 Procedure Note:: Colonoscopy Procedure Report: Colonoscopy with cold snare polypectomy Endoscopist: Gunner Estrella II, MD Referring physician: ALYX Goodman Date of Procedure: July 27, 2024 Equipment: Olympus 190 variable stiffness pediatric colonoscope Sedation: MAC sedation Indication: Mrs. Maldonado is a 63-year-old female who is here for follow-up screening/surveillance colonoscopy. She does have a strong family history of colon cancer and her father had colon cancer at the age of 48. She reports no rectal bleeding, change in her bowel habits or weight loss. She has had some left upper quadrant abdominal discomfort since her cholecystectomy last month. She did have a nonfunctioning gallbladder. Procedure: Prior to the procedure, a history and physical exam was performed, and patient's medications and allergies were reviewed. The risks, benefits and alternatives of the sedation and procedure were discussed with the patient. All questions were answered and informed consent was obtained. The patient was brought to the procedure room. Patient identification and proposed procedure were verified by the physician and the nurse. The patient was placed in a left lateral decubitus position and the scope was passed under direct vision. Throughout the procedure, the patient's blood pressure, pulse, and oxygen saturations were monitored continuously. The colonoscopy was accomplished without difficulty. The patient tolerated the procedure well. Findings: On digital rectal examination there was normal rectal tone. There were no external hemorrhoids. The colonoscope was introduced through the anal canal to the rectum and advanced to the cecum. The ileocecal valve and appendiceal orifice were identified. The scope was advanced a short distance into the ileum which appeared grossly normal. The scope was then withdrawn into the colon. There were 2 colon polyps identified in the ascending x 1 (5 mm) and rectum x 1 (4 mm)).. These ranged in size from 4 to 5 mm and were all removed via cold snare polypectomy. The remaining cecum, ascending, transverse, descending, sigmoid and rectum were grossly normal. There was mild diverticuli throughout the distal descending and sigmoid colon. There were no other mucosal abnormalities identified. Upon retroflexion within the rectum there were grade 1 internal hemorrhoids.The preparation was excellent throughout with [place] Preparation Score of 9. The cecal time was 10 minutes. Impression: 1. Diminutive colonic polyps x 2 2. Mild left-sided diverticulosis 3. Grade 1 internal hemorrhoids Plan: I will follow-up the polyp histology and recommend repeat surveillance colonoscopy again in 5 years based upon her family history. I will address the left upper quadrant abdominal pain since cholecystectomy. She did have acute on chronic cholecystitis. She may have some splenic flexure syndrome because of her obstipation.
== END 2024-07-27 11:30 | disposition home or self-care (01) ==
PROVIDERS: PCP Nurse Practitioner Family; Visit Provider Internal Medicine Gastroenterology
PROC: (CPT 45385; principal; 2024-07-27 10:00)
DX: Z12.11 Encounter for screening for malignant neoplasm of colon (principal); K63.5 Polyp of colon; K57.30 Diverticulosis of large intestine without perforation or abscess without bleeding; K64.0 First degree hemorrhoids; Z80.0 Family history of malignant neoplasm of digestive organs
CPT/HCPCS: 45385; 99221; J7120

== ENCOUNTER 2024-08-13 10:55 | Outpatient (CLI) | payer BC, SELFPAY | END 2024-08-13 23:59 | disposition home or self-care (01) | LOC: LAB.DROPOF 08-14 08:32 | PROVIDERS: PCP Student in an Organized Health Care Education/Training Program; Visit Provider Student in an Organized Health Care Education/Training Program | DX: R39.9 Unspecified symptoms and signs involving the genitourinary system (principal) | CPT/HCPCS: 87086; 87088; 87186 ==

== ENCOUNTER 2024-12-22 13:32 | Outpatient (CLI) | payer BC, SELFPAY ==
[2024-12-22 16:56] LABS: Microscopic, Urine URINE MICROSCOPIC (MICROSCOPIC)
[2024-12-22 17:40] LABS: Appearance,Urine CLEAR (Clear); Bilirubin,Urine Negative (Negative); Blood, Urine Negative (Negative); Color,Urine YELLOW (Yellow); Glucose,Urine (UA) Negative (Negative); Ketones,Urine Negative (Negative); Leukocyte Esterase,Urine Negative (Negative); Nitrate,Urine POSITIVE (Negative); PH,Urine 6.5 (5.0-8.5); Protein,Urine Negative (Negative)
[2024-12-22 17:41] LABS: WBC,Urine Occasional #/hpf (0-3)
[2024-12-22 17:42] LABS: Bacteria,Urine Trace /lpf; Squamous Epithelial Cell,Urine Occasional #/hpf (0-5)
== END 2024-12-22 23:59 | disposition home or self-care (01) ==
LOC: LAB.DROPOF 12-24 13:33
PROVIDERS: PCP Nurse Practitioner Family; Visit Provider Nurse Practitioner Family
DX: M54.50 Low back pain, unspecified (principal); R30.0 Dysuria; N39.0 Urinary tract infection, site not specified
CPT/HCPCS: 81001; 87086

== ENCOUNTER 2025-02-02 14:00 | Outpatient (CLI) | payer BC, SELFPAY ==
[2025-02-02 16:56] LABS: Basophils # 0.1 K/mm3 (0-0.2); Basophils % 0.6 % (0.1-2.0); Eosinophils # 0.2 K/mm3 (0.0-0.4); Eosinophils % 1.7 % (0.1-12.0); Hematocrit 45.6 % (37.0-47.0); Hemoglobin 14.7 g/dL (12.2-16.2); Lymphocytes # 3.7 K/mm3 (0.7-4.5); Lymphocytes % 32.5 % (10-50); Mean Corpuscular HGB Conc 32.2 g/dL (31.8-35.4); Mean Corpuscular Hemoglobin 26.4 pg (27.0-31.2); Mean Corpuscular Volume 81.9 fl (81-99); Mean Platelet Volume 10.9 fl (7.4-10.4); Monocytes # 0.5 K/mm3 (0.1-1.0); Monocytes % 4.6 % (1.7-9.3); Neutrophils # 6.9 K/mm3 (1.8-7.8); Neutrophils % 60.2 % (37.0-80.0); Platelet Count 410 K/mm3 (142-424); Red Blood Count 5.57 M/mm3 (4.20-5.40); Red Cell Distribution Width 14.3 % (11.5-17.5); White Blood Count 11.4 K/mm3 (4.8-10.8)
[2025-02-05 18:12] LABS: Histamine, Plasma 1.75 ng/mL (<1.00)
== END 2025-02-02 23:59 | disposition home or self-care (01) ==
LOC: LAB.DROPOF 02-03 13:19
PROVIDERS: PCP Nurse Practitioner Family; Visit Provider Nurse Practitioner Family
DX: L50.9 Urticaria, unspecified (principal)
CPT/HCPCS: 83088; 85025; 87086; 87088; 87186

== ENCOUNTER 2025-04-06 12:13 | Outpatient (CLI) | payer BC, SELFPAY ==
--- NOTE | 2025-04-06 12:33 | XR_ITS ---
FINAL REPORT CLINICAL HISTORY: posterior knee pain, injury last night FINDINGS: RIGHT KNEE: 3 views of the right knee obtained. There is no acute fracture or dislocation. There is degenerative joint disease, most pronounced of the patellofemoral joint. There is no soft tissue abnormality. IMPRESSION: No acute fracture Reviewed, Interpreted and Dictated by Olga Khoury MD Transcribed by Elyssa Gale Authenticated and [facility]
[2025-04-06 13:06] LABS: Creatinine,Urine Random 79 mg/dL (Not Estab.); Microalbumin/Creatinine Ratio 18.1
[2025-04-06 13:09] LABS: Alanine Aminotransferase 17 U/L (12-78); Albumin Level 4.1 g/dl (3.5-5.0); Albumin/Globulin Ratio 1.3 (1.1-1.8); Alkaline Phosphatase 103 U/L (38-126); Anion Gap 11.6 mEq/L (5-15); Aspartate Amino Transferase 18 U/L (14-36); Blood Urea Nitrogen 13 mg/dl (7-17); Calcium 9.4 mg/dl (8.4-10.2); Carbon Dioxide 29 mmol/L (22.0-30.0); Chloride 104 mmol/L (98-107); Chol/HDL Ratio 4.4 (1-3.5); Cholesterol 227 mg/dl (140-200); Estimated Glomerular Filt Rate 72 ml/min (>60); GFR (African American) 87 ML/MIN (>60); Globulin 3.1 g/dL (1.3-3.2); Glucose 117 mg/dl (74-100); HDL Cholesterol 52 mg/dl (40-60); Potassium 4.6 mmoL/L (3.5-5.1); Sodium 140 mmol/L (136-145); Total Protein,Serum 7.2 g/dl (6.3-8.2); Triglycerides 132 mg/dl (30-150); VLDL Cholesterol 26 mg/dL (0-40)
[2025-04-06 13:20] LABS: Direct LDL Cholesterol 146.86 mg/dL (100-129)
[2025-04-06 13:36] LABS: Hemoglobin A1C 6.5 % (4.0-6.0)
[2025-04-06 13:39] LABS: Thyroid Stimulating Hormone 3.96 uIU/mL (0.465-4.68)
== END 2025-04-06 23:59 | disposition home or self-care (01) ==
LOC: LAB 12:14
PROVIDERS: PCP Nurse Practitioner Family; Visit Provider Nurse Practitioner Family
DX: S89.91XA Unspecified injury of right lower leg, initial encounter (principal); M25.569 Pain in unspecified knee; R73.03 Prediabetes
CPT/HCPCS: 36415; 73564; 80053; 80061; 82043; 82570; 83036; 84443

== ENCOUNTER 2025-04-06 13:11 | Outpatient (CLI) | payer BC, SELFPAY | END 2025-04-06 23:59 | disposition home or self-care (01) | LOC: SUPP 13:14 | PROVIDERS: PCP Nurse Practitioner Family; Visit Provider Nurse Practitioner Family | DX: Z46.89 Encounter for fitting and adjustment of other specified devices (principal) ==

== ENCOUNTER 2025-04-19 06:46 | Outpatient (CLI) | payer BC, SELFPAY ==
--- OUTSIDE RECORDS SUMMARY | 2025-04-19 06:48 | XMS_ITS | Data Portability ---
Author Organization [facility] Address [address] [place] [address] Care Team Providers Care Java J2Ee Application Developer Name Role Phone MONSE HUGO Referring Provider [phone] PONCE NÚÑEZ Primary Care Provider Assessment Encounter Date Assessment Date Assessment LastModified by Organization Details LastModified Time 12/19/2017 12/19/2017 This is a 57-year-old female referred for evaluation and treatment related to cervical radiculopathy. 10/2017 she had onset of pain in her neck with radiation into the right shoulder and down the right arm to the first and second digits. This is associated with burning numbness and tingling. She's been doing massage therapy which has helped as well as been initiated on gabapentin with benefit. She is previously done chiropractic therapy with increased pain. Cervical MRI demonstrates degenerative disc disease at C6-7 with disc mold resulting in central and bilateral neural foraminal stenosis consistent with her exam and history. Based upon this we will plan for a C7-T1 ILESI. She will continue the gabapentin as prescribed by Dr. Hugo, and we will provide refills as needed. [email or web address] Not available 12/19/2017 09:31:53 Plan of Treatment Reminders Order Date Submit Date Provider Last Modified By Organization Details Last Modified Time Details Appointments None recorded. Lab None recorded. Referral physical therapist referral 2017 018 [email or web address] Not available 8 16:04:59 Procedures epidural steroid injection, cervical (PROC) 2017 018 Not available 8 16:08:41 epidural steroid injection, cervical (PROC) 2017 018 [email or web address] Not available 8 10:53:34 Surgeries None recorded. Imaging None recorded. Medication Orders None recorded. Patient TargetsNo targets recorded. Patient Instructions Encounter Date Encounter Id Patient Instructions Last Modified By Organization Details Last Modified Time 04/03/2018 [id number] Ms. Joel rodriguez s a 57 yo female. She presents to clinic for office visit followup. This patient presented originally December 19, 2017 with complaint of neck and right upper extremity pain. She is status post second therapeutic cervical epidural injection done under fluoroscopy at C7-T1 level January 27, 2018. She is reporting 80% ongoing pain relief. She is extremely pleased with the level of pain improvement. The patient has one residual area of pain that continues to be problematic. This area of pain is isolated in the right mid thoracic region. The pain is along the medial border of the right scapula at level T5. Trigger point is noted with palpation, and palpation reproduces pain. I think this is a separate myofascial pain generator. The patient is recommended physical therapy 2 times a week for 4-6 weeks to include stretching, range of motion, strengthening, and dry needling for this myofascial pain complaint. It PT fails to alleviate this pain, we will next consider trigger point injection. Once the patient has completed her physical therapy sessions, she will contact the clinic to schedule an office visit to follow up and to reassess. Hopefully, the therapeutic cervical epidural injections can provide therapeutic benefit for 3 months or longer. If so, if she then has increase in pain, the epidural injection can be served on when necessary basis for chronic pain management. His ORT score is 1. [email or web address] Not available 04/03/2018 09:10:03 Reason for Referral Referring Physician: Ernesto king, Pain Management, Encounter Date: 04/03/2018 Problems Name Problem SNOMED Code Status Onset Date Resolution Date Notes Provider Name and Address Organization Details Recorded Time Chronic pain syndrome 538374731 Active 2017 TENZIN Lucero [address] [place] [address], [phone] , [facility] 8 09:04:45 Myofascial pain 553182759 Active 2017 TENZIN Lucero [address] [place] [address] [place], [address] , [facility] 8 09:04:46 Cervical radiculopathy 53984973 Active 2017 TENZIN Lucero [address] [place], [address] , [facility] 8 09:04:47 Disorder of vitamin B12 151569529 Active 2017 Nitza mendez [facility] 8 08:05:54 Psoriasis 3070955 Active 2017 [facility] 8 08:06:03 Anxiety 30981684 Active 2017 Nitza mendez [facility] 8 08:06:09 Psoriatic arthritis 785485558 Active 2017 Nitzathom Hickman [facility] 8 08:06:21 Problem Notes None recorded. Procedures Surgical History Date Name Laterality Status Provider Name and Address Organization Details Recorded Time 01/28/20 18 Cervical Epidural Steroid Injection: Interlaminar completed Julieta Acosta [facility] 01/27/2018 09:37:40 01/01/20 18 Cervical Epidural Steroid Injection: Interlaminar completed Julieta Acosta [facility] 01/01/2018 09:01:48 Hysterectomy completed Grace William [facility] 12/19/2017 08:26:59 Imaging Results None recorded. Procedure Notes None recorded. Medical Equipment None Reported. Allergies No known drug allergies Medications Name Sig Start Date Stop Date Status Note LastModified by Organization Details LastModified Time amoxicillin 500 mg capsule 04/03 completed Not Available Not Available Not Available fluconazole 200 mg tablet 04/03 completed Not Available Not Available Not Available phenazopyrid ine 200 mg tablet active Not Available Not Available Not Available acyclovir 400 mg tablet active Not Available Not Available Not Available sulfamethoxa zole 800 mg-trimethop rim 160 mg tablet 04/03 completed Not Available Not Available Not Available cyanocobalam in (vit B-12) 1,000 mcg/mL injection solution active Not Available Not Available Not Available gabapentin 100 mg capsule 1 capsule every day by oral route. active Not Available Not Available No t Available diazepam 5 mg tablet active Not Available Not Available No t Available Duexis 800 mg-26.6 mg tablet active Not Available Not Available Not Available Taltz Syringe 80 mg/mL subcutaneous active Not Available Not Available Not Available Taltz Autoinjector 80 mg/mL subcutaneous active Not Available Not Available Not Available Taltz Autoinjector active Not Available Not Available Not Available Vitals Date Recorded Heart rate Body height Body mass index (BMI) Body weight Systolic blood pressure Diastolic blood pressure Provider Name and Address Organization Details Last Updated DateTime 8 89 /min 165.1 cm 39.9 kg/m2 919764. 17 g 136 mm[Hg] 87 mm[Hg] Grace William [facility] 8 08:25:32 Date Recorded Body height Body mass index (BMI) Body weight Heart rate Oxygen saturation Oxygen saturation in Arterial blood by Pulse oximetry Systolic blood pressure Diastolic blood pressure Provider Name and Address Organization Details Last Updated DateTime 8 165.1 cm 41.6 kg/m2 074316. 09 g 101 /min 97 % 97 % 107 mm[Hg] 69 mm[Hg] Hyacinth Vázquez [facility] 8 08:31:39 Social History Question Answer Notes LastModified by Organizat ion Details LastModified Time Tobacco Smoking Status Never Smoker Grace mendez [facility] 12/19/2017 08:26:40 Are You Blind Or Do You Have Difficulty Seeing? No [email or web address] Information not available 12/19/2017 What Is Your Level Of Caffeine Consumption? Occasional [email or web address] Information not available 12/19/2017 How Much Tobacco Do You Chew? None [email or web address] Information not available 12/19/2017 Are You Deaf Or Do You Have Serious Difficulty Hearing? No [email or web address] Information not available 12/19/2017 What Type Of Diet Are You Following? REGULAR [email or web address] Information not available 12/19/2017 Which Illicit Or Recreational Drugs Have You Used? None [email or web address] Information not available 12/19/2017 Education 12 Information no t available 04/03/2018 Are There Any Guns Present In Your Home? Yes Information not available 12/19/2017 Hard Of Hearing Or Deaf In One Or Both Ears? No [email or web address] Information not available 12/19/2017 Legally Blind In One Or Both Eyes? No [email or web address] Information no t available 12/19/2017 Prescription Drug Abuse No [email or web address] Information not available 12/19/2017 Disability No [email or web address] Information n ot available 12/19/2017 History Of Sexual Abuse No [email or web address] Information not available 04/03/2018 Marital Status Informati on not available 12/19/2017 What Was The Date Of Your Most Recent Tobacco Screening? 04/03/2018 Information not available 05/27/2019 How Much Tobacco Do You Smoke? No [email or web address] Information not available 12/19/2017 General Stress Level Low Information not available 12/19/2017 Has Tobacco Cessation Counseling Been Provided? No [email or web address] Information not available 04/03/2018 How Many Years Have You Smoked Tobacco? 0 [email or web address] Information not available 04/03/2018 Have You Used IV Drugs? No Information not available 12/19/2017 Do You Have Difficulty Walking Or Climbing Stairs? No [email or web address] Information not available 12/19/2017 Sex: Unknown Functional Status Question Answer Note LastModified by Organizat ion Details LastModified Time What is your level of alcohol consumption? None [email or web address] Information not available 12/19/2017 Do you have difficulty doing errands alone? No [email or web address] Information not available 12/19/2017 What is your occupation? rishabh [email or web address] Information not available 12/19/2017 Do you have difficulty dressing or bathing? No [email or web address] Information not available 12/19/2017 What is your exercise level? Occasional [email or web address] Information not available 12/19/2017 Mental Status Question Answer Note LastModified by Organization D etails LastModified Time Do you have difficulty concentrating, remembering or making decisions? No [email or web address] Information no t available 12/19/2017 Family History Nothing Reported. Medical History Condition Response Bipolar Disease N Coronary Artery Disease N Gout N Seizure Disorder N Thyroid Disease N Atrial Fibrillation N Head Trauma/Injury N Hernia N COPD N Depression N Anxiety Disorder N Acid Reflux (GERD) N Cancer N Skin Disorder Y Stroke N High Cholesterol N Liver Disease N Rheumatoid Arthritis N Fibromyalgia N Headaches N Autoimmune Disease Y Kidney Disease N Osteoarthritis N Neurosurgery N DVT N Peptic Ulcer Disease N Anemia N Heart Attack (NE) N Diabetes N Cardiomyopathy N Bleeding Disorder N CHF N AIDS/HIV N Inflammatory Bowel Disease N Dementia N Asthma N Substance Abuse N Sleep Apnea N Hepatitis N Heart Disease N Pulmonary Embolism N Chronic Low Back Pain N Hypertension N Osteoporosis N Gynecological HistoryNo gynecological history recorded. Obstetrics History GPAL:G 0 P 0 0 0 0 Past Encounters Encounter ID Performer Location Encounter Start Date Encounter Closed Date Diagnosis/Indication Diagnosis SNOMED-CT Code Diagnosis ICD10 Code Diagnosis Note [id number] Samuel Taylor MD [place] [address] [place] [address] 12/19/2017 08:10:53 12/19/2017 09:33:43 Cervical radiculopathy 71844075 M54.12 Degenerati on of cervical intervertebral disc 88390650 M50.30 [id number] Samuel Taylor MD [place] [address] [place] [address] 01/01/2018 08:30:17 01/01/2018 09:04:40 Cervical radiculopathy 05993175 M54.12 [id number] Samuel Taylor MD [place] [address] [place] [address] 01/27/2018 08:55:59 01/27/2018 09:40:26 Cervical radiculopathy 87179514 M54.12 [id number] Samuel Taylor MD [place] [address] [place] [address] 04/03/2018 08:12:49 04/03/2018 08:51:28 Chronic pain syndrome 141469687 G89.4 Myofascial pain 38797122 9 M79.1 Cervical radiculopathy 40146995 M54.12 Health Concerns Section Related Observation LastModified by Organization Detai ls LastModified Time None Recorded Concern Status LastModified by Organization Details LastModified Time None Recorded Advance Directives Directive None Recorded Payers Insurance Date Sequence Insurance Name Policy Number Policy Palacio Covered Member ID Palacio Member ID Guarantor Name 04/06/2018 Jc GUTIERREZ (POS) Davis Maldonado [id number] Davis Maldonado Notes Date Note Type Note Provider Name and Address Organization Details Recorded Time 12/19/2017 text/html ShoulderReported bypatient.Location:ri ght; posterior; pain radiates into right shoulder blade, upper arm and elbow on the right into the Quality:pins and needles Severity:moderate; pain level 5/10; worst pain 5/10 Duration:2 months; continuous since onset Timing:acute Context:overuse Alleviating Factors:OTC medication; Massages and Gabapentin Aggravating Factors:gripping; grasping; cold weather Associated Symptoms:no weakness; no numbness; no tingling; no swelling; no redness; no warmth; no ecchymosis; no catching/locking; no popping/clicking; no buckling; no grinding; no instability; no drainage; no fever; no weight loss;radiation down arm Previous Surgery:none Prior Imaging:MRI; right shoulder Previous Injections:none Previous PT:helped a little; Patient states she gets massages that has helped with her pain into the arm Work Related:no Working:no Samuel Taylor MD [address] [place] [address], [phone], [facility] 12/19/2017 09:44:24 04/03/2018 text/html Follow-up (meds & injections)Reported bypatient.Improvement :Pain is getting better. Current Analgesics:Other adjunct medications- gabapentin; Reported pain relief- 20% for 1 hours; Patient was receiving prescription from Dr. Monse Hugo, she does not need refill at this time. 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 Adverse Reactions:No nausea.; No vomiting.; No constipation.; No itching.; No sedation.; No respiratory depression.; No sexual dysfunction. Physical Therapy:Has not completed. Recent Injections:01/01/2018 #1 [place] MEGHNA C7-T1, 60% pain relief for 3 weeks 01/27/2018 #2 [place] MEGHNA C7-T1, 80% pain relief ongoing (04/03/2018)ShoulderR eported bypatient.Location:ri ght; posterior; pain radiates into right shoulder blade, upper arm and elbow on the right into the Quality:pins and needles Severity:mild; pain level 2/10; worst pain 5/10 Duration:2 months; continuous since onset Timing:acute Context:overuse Alleviating Factors:OTC medication; Massages and Gabapentin Aggravating Factors:gripping; grasping; cold weather Associated Symptoms:no weakness; no numbness; no tingling; no swelling; no redness; no warmth; no ecchymosis; no catching/locking; no popping/clicking; no buckling; no grinding; no instability; no drainage; no fever; no weight loss;radiation down arm Previous Surgery:none Prior Imaging:MRI; right shoulder Previous Injections:none Previous PT:helped a little; Patient states she gets massages that has helped with her pain into the arm Work Related:no Working:no TENZIN Lucero [address] [place] [address], [phone], [facility] 04/03/2018 09:10:39 OBGyn Episode No OBEpisode recorded.
--- NOTE | 2025-04-19 07:00 | MR_ITS ---
FINAL REPORT CLINICAL HISTORY: Right posterior knee pain nki lateral sided pain 2 weeks COMPARISON: None FINDINGS: Multiplanar MR imaging of the right lower leg was performed without contrast. The bony structures are intact without evidence of fracture or marrow edema. There is a popliteal cyst measuring 8.5 cm in craniocaudal dimension. Significant fluid is seen over the medial head of the gastrocnemius consistent with a leaking popliteal cyst. There is no intramuscular edema. IMPRESSION: 8.5 cm leaking popliteal cyst with fluid extending over the medial head of the gastrocnemius. Reviewed, Interpreted and Dictated by Bonifacio Ho MD Transcribed by Twyla Baptiste Authenticated and [facility]
== END 2025-04-19 23:59 | disposition home or self-care (01) ==
LOC: RAD 06:46
PROVIDERS: PCP Nurse Practitioner Family; Visit Provider Nurse Practitioner Family
DX: M71.21 Synovial cyst of popliteal space [Baker], right knee (principal); S89.91XA Unspecified injury of right lower leg, initial encounter
CPT/HCPCS: 73718

== ENCOUNTER 2025-05-10 13:35 | Outpatient (CLI) | payer BC, SELFPAY ==
--- OUTSIDE RECORDS SUMMARY | 2025-05-11 10:05 | XMS_ITS | Data Portability ---
Author Organization [facility] Address [address] [facility] [address] [place] [address] Care Team Providers Care Wheel Tuner Name Role Phone MONSE HUGO Referring Provider [phone] PONCE NÚÑEZ Primary Care Provider [phone] Assessment Encounter Date Assessment Date Assessment LastModified [...] recorded. Referral physical therapist referral 2017 018 [email or web address] Not available 8 16:04:59 Procedures epidural steroid injection, cervical (PROC) 2017 018 [email or web address] Not available 8 16:08:41 epidural steroid injection, cervical (PROC) 2017 018 [email or web address] Not available 8 10:53:34 Surgeries None recorded. Imaging None recorded. Medication Orders None recorded. Patient TargetsNo targets recorded. Patient Instructions Encounter Date Encounter Id Patient Instructions Last Modified By Organization Details Last Modified Time 04/03/2018 [id number] Ms. Joel rodriguez s a 57 yo [...] pain management. His ORT score is 1. [email or web address] Not available 04/03/2018 09:10:03 Reason for Referral Referring Physician: Ernesto king, Pain Management, Encounter Date: 04/03/2018 Problems Name Problem SNOMED Code Status Onset Date Resolution Date Notes Provider Name and Address Organization Details Recorded Time Chronic pain syndrome 974506154 Active 2017 TENZIN Lucero [address] [place], [address] , [facility] 8 09:04:45 Myofascial pain 318964886 Active 2017 TENZIN Lucero [address] [place], [address] , [facility] 8 09:04:46 Cervical radiculopathy 60203022 Active 2017 TENZIN Lucero [address] [place], [address] , [facility] 8 09:04:47 Disorder of vitamin B12 584417959 Active 2017 Nitza mendez [facility] 8 08:05:54 Psoriasis 9957953 Active 2017 Nitza mendez [facility] 8 08:06:03 Anxiety 62137004 Active 2017 Nitza mendez [facility] 8 08:06:09 Psoriatic arthritis 407972307 Active 2017 Nitza mendez [facility] 8 08:06:21 Problem Notes None recorded. Procedures Surgical History Date Name Laterality Status Provider Name and Address Organization Details Recorded Time 01/28/20 18 Cervical Epidural Steroid Injection: Interlaminar completed Julieta Acosta [facility] 01/27/2018 09:37:40 01/01/20 18 Cervical Epidural Steroid Injection: Interlaminar completed Julieta Acosta [facility] 01/01/2018 09:01:48 Hysterectomy completed Grace William [facility] 12/19/2017 08:26:59 Imaging Results None recorded. Procedure [...] Body mass index (BMI) Body weight Systolic And Diastolic Provider Name and Address Organization Details Last Updated DateTime 12/19/2017 89 /min 165.1 cm 39.9 kg/m2 207749.1 7 g 136/87 mm[Hg] Grace William [facility] 12/19/2017 08:25:32 Date Recorded Body height Body mass index (BMI) Body weight Heart rate Oxygen saturation Oxygen saturation in Arterial blood by Pulse oximetry Systolic And Diastolic Provider Name and Address Organization Details Last Updated DateTime 8 165.1 cm 41.6 kg/m2 207881. 09 g 101 /min 97 % 97 % 107/69 mm[Hg] Hyacinth Vázquez [facility] 8 08:31:39 Social History Question Answer Notes LastModified by Organizat ion Details LastModified Time Tobacco Smoking Status Never Smoker Grace mendez [facility] 12/19/2017 08:26:40 Are You Blind Or Do You Have Difficulty Seeing? No [email or web address] Information not available 12/19/2017 What Is Your Level Of Caffeine Consumption? Occasional Information not available 12/19/2017 How Much Tobacco Do You Chew? None [email or web address] Information not available 12/19/2017 Are You Deaf Or Do You Have Serious Difficulty Hearing? No [email or web address] Information not available 12/19/2017 What Type Of Diet Are You Following? REGULAR Information not available 12/19/2017 Which Illicit Or Recreational Drugs Have You Used? None [email or web address] Information not available 12/19/2017 Education 12 [email or web address] Information no t available 04/03/2018 Are There Any Guns Present In Your Home? Yes [email or web address] Information not available 12/19/2017 Hard Of Hearing Or Deaf In One Or Both Ears? No [email or web address] Information not available 12/19/2017 Legally Blind In One Or Both Eyes? No [email or web address] Information no t available 12/19/2017 Prescription Drug Abuse No [email or web address] Information not available 12/19/2017 Disability No [email or web address] Information n ot available 12/19/2017 History Of Sexual Abuse No Information not available 04/03/2018 Marital Status [email or web address] Informati on not available 12/19/2017 What Was The Date Of Your Most Recent Tobacco Screening? 04/03/2018 Information not available 05/27/2019 How Much Tobacco Do You Smoke? No [email or web address] Information not available 12/19/2017 General Stress Level Low [email or web address] Information not available 12/19/2017 Has Tobacco Cessation Counseling Been Provided? No [email or web address] Information not available 04/03/2018 How Many Years Have You Smoked Tobacco? 0 [email or web address] Information not available 04/03/2018 Have You Used IV Drugs? No [email or web address] Information not available 12/19/2017 Do You Have Difficulty Walking Or Climbing Stairs? No [email or web address] Information not available 12/19/2017 Sex: Unknown Functional Status Question Answer Note LastModified by Organizat ion Details LastModified Time What is your level of alcohol consumption? None [email or web address] Information not available 12/19/2017 Do you have difficulty doing errands alone? No [email or web address] Information not available 12/19/2017 What is your occupation? rishabh [email or web address] Information not available 12/19/2017 Do you have difficulty dressing or bathing? No [email or web address] Information not available 12/19/2017 What is your exercise level? Occasional [email or web address] Information not available 12/19/2017 Mental Status Question Answer Note LastModified by Organization D etails LastModified Time Do you have difficulty concentrating, remembering or making decisions? No [email or web address] Information no t available 12/19/2017 Family History Nothing Reported. Medical History Condition Response Bipolar Disease N Coronary Artery Disease N Seizure Disorder N Gout N Atrial Fibrillation N Thyroid Disease N Hernia N Head Trauma/Injury N COPD N Depression N Anxiety Disorder N Acid Reflux (GERD) N Cancer N Stroke N Skin Disorder Y High Cholesterol N Liver Disease N Rheumatoid Arthritis N Headaches N Fibromyalgia N Kidney Disease N Autoimmune Disease Y Osteoarthritis N Neurosurgery N DVT N Peptic Ulcer Disease N Anemia N Heart Attack (AL) N Diabetes N Cardiomyopathy N Bleeding Disorder [...] SNOMED-CT Code Diagnosis ICD10 Code Diagnosis Note [id number] Samuel Taylor MD [facility] [address] [place] [address] 12/19/2017 08:10:53 12/19/2017 09:33:43 Cervical radiculopathy 71963559 M54.12 Degenerati on of cervical intervertebral disc 35083016 M50.30 [id number] Samuel Taylor MD [facility] [address] [place] [id number] 01/01/2018 08:30:17 01/01/2018 09:04:40 Cervical radiculopathy 48193953 M54.12 [id number] Samuel Taylor MD [facility] [address] [place] [address] 01/27/2018 08:55:59 01/27/2018 09:40:26 Cervical radiculopathy 69478096 M54.12 [id number] Samuel Taylor MD [facility] [address] [place] [id number] 04/03/2018 08:12:49 04/03/2018 08:51:28 Chronic pain syndrome 743569496 G89.4 Myofascial pain 28527943 9 M79.1 Cervical radiculopathy 04201704 M54.12 Health Concerns Section Related Observation LastModified by Organization Detai ls LastModified Time None Recorded Concern Status LastModified by Organization Details LastModified Time None Recorded Advance Directives Directive None Recorded Payers Insurance Date Sequence Insurance Name Policy Number Policy Palacio Covered Member ID Palacio Member ID Guarantor Name 04/06/2018 1 [employer] (POS) Davis Maldonado [id number] Davis Maldonado Notes Date Note Type Note [...] arm Work Related:no Working:no Samuel Taylor MD [address] [place] [address], [phone], [facility] 12/19/2017 09:44:24 04/03/2018 text/html Follow-up (meds & [...] to bathe/groom without assistance.; 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 Adverse Reactions:No [...] the arm Work Related:no Working:no TENZIN Lucero [address] [place] [address], [phone], [facility] 04/03/2018 09:10:39 OBGyn Episode No OBEpisode recorded.
== END 2025-05-10 23:59 | disposition home or self-care (01) ==
LOC: LAB.DROPOF 05-11 10:03
PROVIDERS: PCP Nurse Practitioner Family; Visit Provider Nurse Practitioner Family
DX: R30.0 Dysuria (principal); R82.998 Other abnormal findings in urine
CPT/HCPCS: 87086; 87088; 87186

== ENCOUNTER 2025-05-21 08:25 | Outpatient (CLI) | payer BC, SELFPAY ==
[2025-05-21 13:14] LABS: Microscopic, Urine URINE MICROSCOPIC (MICROSCOPIC)
[2025-05-21 14:00] LABS: Bilirubin,Urine Negative (Negative); Color,Urine YELLOW (Yellow); Glucose,Urine (UA) Negative (Negative); Ketones,Urine 2+ (Negative); Leukocyte Esterase,Urine 2+ (Negative); PH,Urine 6.0 (5.0-8.5); Protein,Urine Negative (Negative); Specific Gravity, Urine 1.020 (1.005-1.030); Urobilinogen,Urine 0.2 EU/dl (0.2)
[2025-05-21 14:11] LABS: Bacteria,Urine 4+ /lpf; RBC,Urine Occasional #/hpf (0-3); WBC,Urine 50-100 #/hpf (0-3)
--- OUTSIDE RECORDS SUMMARY | 2025-05-24 09:33 | XMS_ITS ---
Author Organization [facility] Address [address] [place] [id number] Care Team Providers Care [facility] Name Role Phone Inez Hart APRN Primary Care Provider [phone] Rheumatology - External Fill Status:Enrolled (Active) Start date:06/22/2024 Enrollment date:06/22/2024 Enrollment reason:Identified as being on target medication Current support & services provided:Benefits Investigation, External Pharmacy Dispensing Linked medications:Risankizumab-rzaa (Active) Linked problems:Psoriatic arthritis (Active) Continued Care and Services Coordination
--- OUTSIDE RECORDS SUMMARY | 2025-05-24 09:33 | XMS_ITS | Clinical Summary ---
Author Organization [facility] Address [address] [place] [address] Care Team Providers Care Kinesiotherapist Name Role Phone Inez Hart APRN Primary Care Provider [phone] Allergies Active Allergy Reactions Criticality Noted Date Comments Prednisone Provider Review Needed 06/15/2024 Medications folic acid (FOLVITE) 1 MG tablet Take 1 tablet by mouth Daily. Active diazePAM (VALIUM) 5 MG tablet Active DULoxetine (CYMBALTA) 30 MG capsule 4 Active Risankizumab-r zaa (Skyrizi) 150 MG/ML solution prefilled syringe Inject 150 mg under the skin into the appropriate area as directed Every 3 (Three) Months. 1 mL 6 4 Active cefdinir (OMNICEF) 300 MG capsule Take 1 capsule by mouth 2 (Two) Times a Day. 5 Active sulfaSALAzine (AZULFIDINE) 500 MG tablet Take 2 tablets by mouth 2 (Two) Times a Day. 360 tablet 3 5 Active gabapentin (NEURONTIN) 400 MG capsuleIndicat ions:Fibromyal rogerio Take 1 capsule by mouth Daily. 90 capsule 1 5 Active ibuprofen (ADVIL,MOTRIN) 800 MG tablet Take 1 tablet by mouth Every 8 (Eight) Hours As Needed for Mild Pain. 270 tablet 3 5 Active cyanocobalamin 1000 MCG/ML injection Inject 1 mL under the skin into the appropriate area as directed Every 14 (Fourteen) Days. Inject subcutaneously 1,000 mcg once every week 4 mL 3 5 Active methylPREDNISo lone (MEDROL) 4 MG dose pack Take as directed on package instructions. 1 each 5 Active ergocalciferol (ERGOCALCIFERO L) 1.25 MG (91893 UT) capsule Take 1 capsule by mouth 1 (One) Time Per Week for 168 days. 12 capsule 1 5 025 Active Active Problems Problem Noted Date Diagnosed Date Encounter for long-term (cur rent) use of high-risk medication 10/21/2024 Assessment & Plan (03/04/2025 9:42 AM EDT): Sulfasalazine 1000 mg BID for psoriasis/psoriatic arthritis 1. CBC and CMP every 8-12 weeks to monitor for medication toxicity. 2. No recent serious infections. 3. Refill today Assessment & Plan (11/03/2024 9:59 AM EST): Skyrizi 150 mg SQ injection for psoriasis every 12 weeks 1. Hold if the patient develops infection. 2. Avoid live vaccines while on this medication. 3. No recent serious infections 4. No injection site reactions. 5. Also hold this medication perioperatively if the patient is going to have a surgical procedure Encounter for medication monitoring 10/21/2024 Assessment & Plan (03/04/2025 9:42 AM EDT): Gabapentin 400 mg PO Q HS for fibromyalgia Pain contract updated 07/02/24 Drug screen UTD 11/03/24 PDMP reviewed Assessment & Plan (11/03/2024 9:59 AM EST): Gabapentin 400 mg PO Q HS for fibromyalgia Pain contract updated 07/02/24 Check JUAN JOSE and Drug screen as required. 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 Avoid live vaccines while on this medication. No recent serious infections No injection site reactions. Also hold this medication perioperatively if the patient is going to have a surgical procedure Assessment & Plan (11/03/2024 9:59 AM EST): Sulfasalazine 1000 mg BID for psoriasis/psoriatic arthritis 1. CBC and CMP every 8-12 weeks to monitor for medication toxicity. 2. No recent serious infections. 3. Refill today Fatigue 10/21/2024 Assessment & Plan (11/03/2024 9:59 AM EST): Update hepatitis status with next lab draw NSAID long-term use 07/02/2024 Assessment & Plan (03/04/2025 9:42 AM EDT): * Ibuprofen 800 mg PO TID PRN for joint pain Do not take over-the counter anti-inflammatory medicines, such as ibuprofen or naproxen (Advil, Motrin, Aleve and others), as they may cause problems when combined with your prescription medications. In general, low dose daily aspirin for the treatment or prevention of heart disease or stroke is safe to take. Acetaminophen (Tylenol) is generally safe to take as directed for headaches, cramps or other aches and pains or fever reduction. Risks of NSAIDS discussed including GI upset, GI bleeding, renal and hepatic risks and the risks of cardiovascular disease and stroke. Assessment & Plan (11/03/2024 9:59 AM EST): * Ibuprofen 800 mg PO TID PRN for joint pain Do not take over-the counter anti-inflammatory medicines, such as ibuprofen or naproxen (Advil, Motrin, Aleve and others), as they may cause problems when combined with your prescription medications. In general, low dose daily aspirin for the treatment or prevention of heart disease or stroke is safe to take. Acetaminophen (Tylenol) is generally safe to take as directed for headaches, cramps or other aches and pains or fever reduction. Assessment & Plan (07/02/2024 12:34 PM EDT): Gabapentin 400 mg PO Q HS for fibromyalgia Pain contract updated 07/02/24 Check JUAN JOSE and Drug screen as required. Drug screen ordered today Assessment & Plan (07/02/2024 12:34 PM EDT): * Ibuprofen 800 mg PO TID PRN for joint pain Do not take over-the counter anti-inflammatory medicines, such as ibuprofen or naproxen (Advil, Motrin, Aleve and others), as they may cause problems when combined with your prescription medications. In general, low dose daily aspirin for the treatment or prevention of heart disease or stroke is safe to take. Acetaminophen (Tylenol) is generally safe to take as directed for headaches, cramps or other aches and pains or fever reduction. Primary osteoarthritis involving multiple joints 07/02/2024 Assessment & Plan (03/04/2025 9:42 AM EDT): Tylenol PRN is ok as directed She has tried oral and topical NSAIDS PRN She hs taken gabapentin for neuropathic pain She has taken Oxycodone PRN She has seen pain management She has had neck injections She has done some physical therapy Assessment & Plan (11/03/2024 9:59 AM EST): Tylenol PRN is ok as directed She has tried oral and topical NSAIDS PRN She hs taken gabapentin for neuropathic pain She has taken Oxycodone PRN She has seen pain management She has had neck injections She has done some physical therapy Assessment & Plan (07/02/2024 12:34 PM EDT): Tylenol PRN is ok as directed She has tried oral and topical NSAIDS PRN She hs taken gabapentin for neuropathic pain She has taken Oxycodone PRN She has seen pain management She has had neck injections She has done some physical therapy Fibromyalgia 07/02/2024 Assessment & Plan (03/04/2025 9:42 AM EDT): 1. H & P consistent with this diagnosis. 2. Encourage aerobic activity and sleep hygiene. 3. If she has not had a sleep study/consultation consider getting this done. 4. Continue/refill gabapentin 5. She has taken Tylenol PRN 6. She has tried oral and topical NSAIDS PRN 7. She has taken Duloxetine 8. She has taken Prozac in the past 9. She has seen pain management specialists 10. She has had neck injections 11. She has done some physical therapy. Assessment & Plan (11/03/2024 9:59 AM EST): 1. H & P consistent with this diagnosis. 2. Encourage aerobic activity and sleep hygiene. 3. If she has not had a sleep study/consultation consider getting this done. 4. Continue/refill gabapentin 5. She has taken Tylenol PRN 6. She has tried oral and topical NSAIDS PRN 7. She has taken Duloxetine 8. She has taken Prozac in the past 9. She has seen pain management specialists 10. She has had neck injections 11. She has done some physical therapy. Assessment & Plan (07/02/2024 12:34 PM EDT): 1. H & P consistent with this diagnosis. 2. Encourage aerobic activity and sleep hygiene. 3. If she has not had a sleep study/consultation consider getting this done. 4. Continue/refill gabapentin 5. She has taken Tylenol PRN 6. She has tried oral and topical NSAIDS PRN 7. She has taken Duloxetine 8. She has taken Prozac in the past 9. She has seen pain management specialists 10. She has had neck injections 11. She has done some physical therapy. Anxiety disorder 06/15/2024 Psoriatic arthritis 06/15/2024 Assessment & Plan (03/04/2025 9:54 AM EDT): Medication/treatment/interventions tried include: Tylenol, Ibuprofen, Duexis, diclofenac gel, gabapentin, sulfasalazine, Skyrizi, Oxycodone, prednisone (allergic/intolerant), duloxetine, Taltz, Prozac, methotrexate/folic acid, Remicade, Cosentyx, Humira, Enbrel, physical therapy, She has seen pain management, she has had neck injections Continue/refill Skyrizi Check labs today Continue/refill SSZ. Will call in Medrol dose pack today for flare Follow up in 3-4 months Assessment & Plan (11/03/2024 9:59 AM EST): Medication/treatment/interventions tried include: Tylenol, Ibuprofen, Duexis, diclofenac gel, gabapentin, sulfasalazine, Skyrizi, Oxycodone, prednisone (allergic/intolerant), duloxetine, Taltz, Prozac, methotrexate/folic acid, Remicade, Cosentyx, Humira, Enbrel, physical therapy, She has seen pain management, she has had neck injections Continue/refill Skyrizi Check labs We gave her a handout on psoriasis to take home and review Follow up in 3-4 months She also takes sulfasalazine. Refill today. Assessment & Plan (07/02/2024 12:38 PM EDT): Medication/treatment/interventions tried include: Tylenol, Ibuprofen, Duexis, diclofenac gel, gabapentin, sulfasalazine, Skyrizi, Oxycodone, prednisone (allergic/intolerant), duloxetine, Taltz, Prozac, methotrexate/folic acid, Remicade, Cosentyx, Humira, Enbrel, physical therapy, She has seen pain management, she has had neck injections Continue/refill Skyrizi Check labs We gave her a handout on psoriatic arthritis to take home and review Follow up in 3-4 months She also takes sulfasalazine. Refill today. Vitamin D deficiency 06/15/2024 Assessment & Plan (03/04/2025 9:48 AM EDT): She takes an OTC supplement currently Will recheck level today B12 deficiency 06/15/2024 Assessment & Plan (03/04/2025 9:54 AM EDT): 11/03/24 B12 low end of normal at 273 (while on injections every 2 weeks) Continue B12 injections every week Recheck level today Assessment & Plan (07/02/2024 12:18 PM EDT): Continue supplementation Recheck levels Other psoriasis 06/15/2024 Cervical radiculopathy 04/03/2018 Myofascial pain 04/03/2018 Resolved Problems Problem Noted Date Diagnosed Date Resolved Date High risk medication use 07/02/2024 Assessment & Plan (07/02/2024 12:18 PM EDT): Skyrizi 150 mg SQ injection for psoriasis every 12 weeks 1. Hold if the patient develops infection. 2. Avoid live vaccines while on this medication. 3. No recent serious infections 4. No injection site reactions. 5. Also hold this medication perioperatively if the patient is going to have a surgical procedure Encounters Date Type Department Care Team Description 03/04/2025 10:05 AM EDT Lab [facility] [place] [address] [place] [address] Vitamin D deficiency; B12 deficiency; Psoriatic arthritis; Immunodeficiency due to treatment with immunosuppressive medication; Encounter for long-term (current) use of high-risk medication; NSAID long-term use; Fibromyalgia 03/04/2025 9:30 AM EDT Office Visit [facility] [address] [place] [phone] Rainer Diaz APRN Psoriatic arthritis (Primary Dx); Immunodeficiency due to treatment with immunosuppressive medication; Encounter for long-term (current) use of high-risk medication; NSAID long-term use; Fibromyalgia; Encounter for medication monitoring; Primary osteoarthritis involving multiple joints; B12 deficiency; Vitamin D deficiency 03/04/2025 Results Follow-Up [facility] [address] [place] [phone] Alex Ortiz DO 03/04/2025 Travel from Last 3 Months Immunizations Immunization Administration Dates Next Due COVID-19 (UNSPECIFIED) 03/30/2021 Family History Medical History Relation Name Comments Heart attack Brother Stroke Brother Arthritis Maternal Grandmother Relation Name Status Comments Brother Maternal Grandmother Social History Tobacco Use Types Packs/Day Years Used Date Smoking Tobacco: Never Smokeless Tobacco: Never Tobacco Cessation:Counseling Given: Not Answered Alcohol Use Standard Drinks/Week Comments Never 0 (1 standard drink = 0.6 oz pur e alcohol) Comments Unknown Sex and Gender Information Value Date Recorded Sex Assigned at Not on file Legal Sex Female 10:17 AM EDT Gender Identity Not on file Sexual Orientation Not on file Last Filed Vital Signs Vital Sign Reading Time Taken Comments Blood Pressure 130/72 03/04/2025 9:29 AM EDT Pulse 89 03/04/2025 9:29 AM EDT Temperature 36.3 C (97.3 F) 03/04/2025 9:29 AM EDT Respiratory Rate - - Oxygen Saturation - - Inhaled Oxygen Concentration - - Weight 111 kg (244 lb) 03/04/2025 9:29 AM EDT Height 165.1 cm (5' 5 ) 03/04/2025 9:29 AM EDT Body Mass Index 40.6 03/04/2025 9:29 AM EDT Plan of Treatment Upcoming Encounters Date Type Department Care Team (Late st Contact Info) Description 07/08/2025 9:15 AM EDT Office Visit [facility] [address] [facility] [address] [place] [address] Rainer Diaz, TRUMAN [address] [facility] [address] [place] [address] Health Maintenance Due Date Last Done Comments Annual Gynecologic Pelvic and Breast Exam 1960 Pneumococcal Vaccine 50+ (1 of 2 - PCV) 1979 ZOSTER VACCINE (1 of 2) 1979 PAP SMEAR 1981 MAMMOGRAM 2000 COLOGUARD 2005 COLON CANCER SCREENING 5 YEAR SIGMOIDOSCOPY 2005 COLONOSCOPY 2005 COL[address]AL CANCER SCREENING 2005 CT COLONOGRAPHY 2005 FECAL OCCULT BLOOD TEST 2005 FIT Testing (1 year) 2005 TDAP/TD VACCINES (2 - Tdap) 01/05/2007 01/05/1997 COVID-19 Vaccine (2 - Mixed Product risk series) 04/2703/30/2021 ANNUAL PHYSICAL 04/22/2024 INFLUENZA VACCINE 08/04/2025 HEPATITIS C SCREENING Completed 11/03/2024 Procedures Procedure Name Priority Date/Time Associated Diagnosis Comments CBC (NO DIFF) Routine 03/04/2025 9:55 AM EDT Psoriatic arthritis Immunodeficiency due to treatment with immunosuppressive medication Encounter for long-term (current) use of high-risk medication NSAID long-term use Fibromyalgia SEDIMENTATION RATE Routine 03/04/2025 9: 55 AM EDT Psoriatic arthritis Immunodeficiency due to treatment with immunosuppressive medication Encounter for long-term (current) use of high-risk medication NSAID long-term use Fibromyalgia C-REACTIVE PROTEIN Routine 03/04/2025 9: 55 AM EDT Psoriatic arthritis Immunodeficiency due to treatment with immunosuppressive medication Encounter for long-term (current) use of high-risk medication NSAID long-term use Fibromyalgia COMPREHENSIVE METABOLIC PANEL Routine 03/04/2025 9:55 AM EDT Psoriatic arthritis Immunodeficiency due to treatment with immunosuppressive medication Encounter for long-term (current) use of high-risk medication NSAID long-term use Fibromyalgia FOLATE Routine 03/04/2025 9:55 AM EDT B12 deficiency VITAMIN B12 Routine 03/04/2025 9:55 AM EDT B12 deficiency VITAMIN D,25-HYDROXY Routine 03/04/2025 9:55 AM EDT Vitamin D deficiency HEPATITIS PANEL, ACUTE Routine 11/03/2024 10:23 AM EST Psoriatic arthritis Encounter for long-term (current) use of high-risk medication Immunodeficiency due to treatment with immunosuppressive medication NSAID long-term use Fibromyalgia Primary osteoarthritis involving multiple joints Encounter for medication monitoring Fatigue, unspecified type from Last 3 Months or Most Recently Relevant to Health Maintenance Results * (ABNORMAL) Vitamin D,25-Hydroxy (03/04/2025 9:55 AM EDT) 25 Hydroxy, Vitamin D 13.3(L) 30.0 - 100.0 ng/ml 03/04/2025 7:56 PM EDT [facility] Blood Venipuncture / Unknown 03/04/2025 9:55 AM EDT 03/04/2025 9:55 AM EDT [facility] - 03/04/2025 7:56 PM EDT Reference Range for Total Vitamin D 25(OH) Deficiency <20.0 ng/mL Insufficiency 21-29 ng/mL Sufficiency 30-100 ng/mL Toxicity >100 ng/ml [employer]va Kim Joe [employer] LAB BLOOD ORDERABLES Final Res ult Performing Organization Address City/[facility] [address]/ZIP Co de Phone Number [facility]
[address] [place] [address], * (ABNORMAL) Sedimentation Rate (03/04/2025 9:55 AM EDT) Sed Rate 34(H) 0 - 30 mm/hr 03/04/2025 2:39 PM EDT [facility] Blood Venipuncture / Unknown 03/04/2025 9:55 AM EDT 03/04/2025 9:55 AM EDT [employer]eugenie [facility] [employer] BONDING [employer] LAB BLOOD ORDERABLES Final Res ult Performing Organization Address [facility] [address]/[facility] Co de Phone Number [facility]
[address] [place] [address], * (ABNORMAL) CBC (No Diff) (03/04/2025 9:55 AM EDT) WBC 11.50(H) 3.40 - 10.80 10*3/mm3 03/04/2025 2:20 PM EDT [facility] RBC 5.52(H) 3.77 - 5.28 10*6/mm3 03/04/2025 2:20 PM EDT [facility] Hemoglobin 14.2 12.0 - 15.9 g/dL 03/04/2025 2:20 PM EDT [facility] Hematocrit 44.3 34.0 - 46.6 % 03/04/2025 2:20 PM EDT [facility] MCV 80.3 79.0 - 97.0 fL 03/04/2025 2:20 PM EDT [facility] MCH 25.7(L) 26.6 - 33.0 pg 03/04/2025 2:20 PM EDT [facility] MCHC 32.1 31.5 - 35.7 g/dL 03/04/2025 2:20 PM EDT [facility] RDW 13.6 12.3 - 15.4 % 03/04/2025 2:20 PM EDT [facility] RDW-SD 39.4 37.0 - 54.0 fl 03/04/2025 2:20 PM EDT [facility] MPV 10.4 6.0 - 12.0 fL 03/04/2025 2:20 PM EDT [facility] Platelets 416 140 - 450 10*3/mm3 03/04/2025 2:20 PM EDT [facility] Blood Venipuncture / Unknown 03/04/2025 9:55 AM EDT 03/04/2025 9:55 AM EDT [employer]va D Joe [employer] LAB BLOOD ORDERABLES Final Res ult [facility]
[address] [place] [address], * (ABNORMAL) C-reactive Protein (03/04/2025 9:55 AM EDT) C-Reactive Protein 1.88(H) 0.00 - 0.50 mg/dL 03/04/2025 3:00 PM EDT [facility] Blood Venipuncture / Unknown 03/04/2025 9:55 AM EDT 03/04/2025 9:55 AM EDT Evva D Joe [employer] LAB BLOOD ORDERABLES Final Res ult [facility]
[address] [place] [address], * Folate (03/04/2025 9:55 AM EDT) Folate 6.17 4.78 - 24.20 ng/mL 03/04/2025 7:56 PM EDT [facility] Blood Venipuncture / Unknown 03/04/2025 9:55 AM EDT 03/04/2025 9:55 AM EDT [facility] - 03/04/2025 7:56 PM EDT Results may be falsely increased if patient taking Biotin. Evva D Joe [employer] LAB BLOOD ORDERABLES Final Res ult Performing Organization Address [facility] Co de Phone Number [facility]
[address] [place] [address], * Vitamin B12 (03/04/2025 9:55 AM EDT) Vitamin B-12 262 211 - 946 pg/mL 03/04/2025 7:56 PM EDT [facility] Blood Venipuncture / Unknown 03/04/2025 9:55 AM EDT 03/04/2025 9:55 AM EDT [facility] - 03/04/2025 7:56 PM EDT Results may be falsely increased if patient taking Biotin. Evva D Joe [employer] LAB BLOOD ORDERABLES Final Res ult Performing Organization Address [facility] de Phone Number [facility]
[address] [place] [address], * (ABNORMAL) Comprehensive Metabolic Panel (03/04/2025 9:55 AM EDT) Glucose 116(H) 65 - 99 mg/dL 03/04/2025 3:00 PM EDT [facility] BUN 10 8 - 23 mg/dL 03/04/2025 3:00 PM EDT [facility] Creatinine 0.80 0.57 - 1.00 mg/dL 03/04/2025 3:00 PM EDT [facility] Sodium 141 136 - 145 mmol/L 03/04/2025 3:00 PM EDT [facility] Potassium 4.4 3.5 - 5.2 mmol/L 03/04/2025 3:00 PM [facility] Chloride 105 98 - 107 mmol/L 03/04/2025 3:00 PM [facility] CO2 26.7 22.0 - 29.0 mmol/L 03/04/2025 3:00 PM [facility] Calcium 9.2 8.6 - 10.5 mg/dL 03/04/2025 3:00 PM [facility] Total Protein 7.4 6.0 - 8.5 g/dL 03/04/2025 3:00 PM [facility] Albumin 4.0 3.5 - 5.2 g/dL 03/04/2025 3:00 PM [facility] ALT (SGPT) 12 1 - 33 U/L 03/04/2025 3:00 PM [facility] AST (SGOT) 15 1 - 32 U/L 03/04/2025 3:00 PM [facility] Alkaline Phosphatase 108 39 - 117 U/L 03/04/2025 3:00 PM [facility] Total Bilirubin 0.6 0.0 - 1.2 mg/dL 03/04/2025 3:00 PM [facility] Globulin 3.4 gm/dL 03/04/2025 3:00 PM [facility] A/G Ratio 1.2 g/dL 03/04/2025 3:00 PM [facility] BUN/Creatinine Ratio 12.5 7.0 - 25.0 03/04/2025 3:00 PM [facility] Anion Gap 9.3 5.0 - 15.0 mmol/L 03/04/2025 3:00 PM [facility] eGFR 82.4 >60.0 mL/min/1.7 3 03/04/2025 3:00 PM [facility] Blood Venipuncture / Unknown 03/04/2025 9:55 AM EDT 03/04/2025 9:55 AM EDT Narrative [facility] - 03/04/2025 3:00 PM EDT GFR Categories in Chronic Kidney Disease (CKD) GFR Category GFR (mL/min/1.73) Interpretation G1 90 or greater Normal or high (1) G2 60-89 Mild decrease (1) G3a 45-59 Mild to moderate decrease G3b 30-44 Moderate to severe decrease G4 15-29 Severe decrease G5 14 or less Kidney failure (1)In the absence of evidence of kidney disease, neither GFR category G1 or G2 fulfill the criteria for CKD. eGFR calculation 2020 CKD-EPI creatinine equation, which does not include race as a factor Rainer Diaz APRN LAB BLOOD ORDERABLES Final Res ult [facility]
[address] [place] [address], [place] [phone] * Hepatitis Panel, Acute (11/03/2024 10:23 AM EST) Hepatitis B Surface Ag Non-Reacti ve Non-Reacti ve 11/03/2024 7:19 PM EST [facility] Hep A IgM Non-Reacti ve Non-Reacti ve 11/03/2024 7:19 PM EST [facility] Hep B C IgM Non-Reacti ve Non-Reacti ve 11/03/2024 7:19 PM EST [facility] Hepatitis C Ab Non-Reacti ve Non-Reacti ve 11/03/2024 7:19 PM EST [facility] Blood Venipuncture / Unknown 11/03/2024 10:23 AM EST 11/03/2024 10:23 AM EST [facility] - 11/03/2024 7:19 PM EST Results may be falsely decreased if patient taking Biotin. Alex Ortiz DO LAB BLOOD ORDERABLES F inal Result Performing Organization Address City/[facility] [address]/ZIP Co de Phone Number [facility]
[address] [place] [address], [place] [phone] from Last 3 Months or Most Recently Relevant to Health Maintenance Insurance [employer] DANIEL ODOM [id number] [facility] PPO Care Teams Kinesiotherapist Relationship Specialty Start Date End Date Inez Hart APRN [address] [place] [address] DANIEL ODOM [id number] PCP - General Internal Medicine 07/02/24
== END 2025-05-21 23:59 | disposition home or self-care (01) ==
LOC: LAB.DROPOF 05-24 09:28
PROVIDERS: PCP Nurse Practitioner Family; Visit Provider Nurse Practitioner Family
DX: N39.0 Urinary tract infection, site not specified (principal)
CPT/HCPCS: 81001; 87086; 87088; 87186

== ENCOUNTER 2025-06-14 12:04 | Outpatient (CLI) | payer BC, SELFPAY ==
[2025-06-14 16:51] LABS: Microscopic, Urine URINE MICROSCOPIC (MICROSCOPIC)
[2025-06-14 17:27] LABS: Bilirubin,Urine Negative (Negative); Color,Urine YELLOW (Yellow); Glucose,Urine (UA) Negative (Negative); Ketones,Urine Negative (Negative); Leukocyte Esterase,Urine TRACE (Negative); PH,Urine 5.5 (5.0-8.5); Protein,Urine Negative (Negative); Specific Gravity, Urine >= 1.030 (1.005-1.030); Urobilinogen,Urine 0.2 EU/dl (0.2)
[2025-06-14 17:56] LABS: Bacteria,Urine 1+ /lpf; WBC,Urine 20-50 #/hpf (0-3)
[2025-06-14 17:57] LABS: Squamous Epithelial Cell,Urine Occasional #/hpf (0-5)
--- OUTSIDE RECORDS SUMMARY | 2025-06-15 14:29 | XMS_ITS | Clinical Summary ---
Author Organization [facility] Address [address] [place] [address] Care Team Providers Care Dye House Helper Name Role Phone Inez Hart APRN Primary Care Provider [phone] Allergies Active Allergy Reactions Criticality Noted Date [...] 5 Active ergocalciferol (ERGOCALCIFERO L) 1.25 MG (62112 UT) capsule Take 1 capsule by mouth [...] is going to have a surgical procedure Immunizations Immunization Administration Dates Next Due COVID-19 [...] Description 07/08/2025 9:15 AM EDT Office Visit [facility] [address] [address] Rainer Diaz, MAINSTREAMING FACILITATOR [address] [address] Health Maintenance Due Date Last Done [...] Procedure Name Priority Date/Time Associated Diagnosis Comments HEPATITIS PANEL, ACUTE Routine 11/03/2024 10:23 AM EST Psoriatic arthritis Encounter for long-term (current) use of high-risk medication Immunodeficiency due to treatment with immunosuppressive medication NSAID long-term use Fibromyalgia Primary osteoarthritis involving multiple joints Encounter for medication monitoring Fatigue, unspecified type from Last 3 Months or Most Recently Relevant to Health Maintenance Results * Hepatitis Panel, Acute (11/03/2024 10:23 AM EST) Hepatitis B Surface Ag Non-Reacti ve Non-Reacti ve 11/03/2024 7:19 PM EST [facility] Hep A IgM Non-Reacti ve Non-Reacti ve 11/03/2024 7:19 PM EST [facility] Hep B C IgM Non-Reacti ve Non-Reacti ve 11/03/2024 7:19 PM EST [facility] Hepatitis C Ab Non-Reacti ve Non-Reacti ve 11/03/2024 7:19 PM EST [facility] Blood Venipuncture / Unknown 11/03/2024 10:23 AM EST 11/03/2024 10:23 AM EST Narrative [facility] - 11/03/2024 7:19 PM EST Results may be falsely decreased if patient taking Biotin. us Alex Ortiz DO LAB BLOOD ORDERABLES F inal Result [facility]
[address] [place] [address], from Last 3 Months or Most Recently Relevant to Health Maintenance Insurance [facility] PPO Care Teams Dye House Helper Relationship Specialty Start Date End Date Inez Hart APRN [facility] [address] [address] [facility] [address] PCP - General Internal Medicine 07/02/24
--- OUTSIDE RECORDS SUMMARY | 2025-06-15 14:29 | XMS_ITS ---
Author Organization [facility] Address [address] [place] [id number] Care Team Providers Care Endless Track Vehicle Mechanic Name Role Phone Inez Hart APRN Primary Care Provider [phone] Rheumatology - External Fill Status:Enrolled (Active) Start date:06/22/2024 Enrollment date:06/22/2024 Enrollment reason:Identified as being on target medication Current support & services provided:Benefits Investigation, External Pharmacy Dispensing Linked medications:Risankizumab-rzaa (Active) Linked problems:Psoriatic arthritis (Active) Continued Care and Services Coordination
== END 2025-06-14 23:59 | disposition home or self-care (01) ==
LOC: LAB.DROPOF 06-15 14:28
PROVIDERS: PCP Nurse Practitioner Family; Visit Provider Nurse Practitioner Family
DX: N39.0 Urinary tract infection, site not specified (principal)
CPT/HCPCS: 81001; 87086

== ENCOUNTER 2025-06-21 08:49 | Outpatient (CLI) | payer BC, SELFPAY ==
--- OUTSIDE RECORDS SUMMARY | 2025-06-23 10:02 | XMS_ITS ---
Author Organization [facility] Address [address] [place] [id number] Care Team Providers Care Africana Studies Professor Name Role Phone Inez Hart APRN Primary Care Provider [phone] Rheumatology - External Fill Status:Enrolled (Active) Start date:06/22/2024 Enrollment date:06/22/2024 Enrollment reason:Identified as being on target medication Current support & services provided:Benefits Investigation, External Pharmacy Dispensing Linked medications:Risankizumab-rzaa (Active) Linked problems:Psoriatic arthritis (Active) Continued Care and Services Coordination
--- OUTSIDE RECORDS SUMMARY | 2025-06-23 10:02 | XMS_ITS | Clinical Summary ---
Author Organization [facility] Address [address] [place] [address] Care Team Providers Care Plate Finisher Name Role Phone Inez Hart APRN Primary Care Provider [phone] Allergies Active Allergy Reactions Criticality Noted Date [...] 5 Active ergocalciferol (ERGOCALCIFERO L) 1.25 MG (76475 UT) capsule Take 1 capsule by mouth [...] Description 07/08/2025 9:15 AM EDT Office Visit [facility] [address] [address] Rainer Diaz, DRUG SAFETY SPECIALIST [address] [address] Health Maintenance Due Date Last [...] ve Non-Reacti ve 11/03/2024 7:19 PM EST [facility] Hep A IgM Non-Reacti ve Non-Reacti ve 11/03/2024 7:19 PM EST [facility] Hep B C IgM Non-Reacti ve Non-Reacti ve 11/03/2024 7:19 PM EST [facility] Hepatitis C Ab Non-Reacti ve Non-Reacti ve 11/03/2024 7:19 PM EST [facility] Blood Venipuncture / Unknown 11/03/2024 10:23 AM EST 11/03/2024 10:23 AM EST Narrative [facility] - 11/03/2024 7:19 PM EST Results may be falsely decreased if patient taking Biotin. us Alex Ortiz DO LAB BLOOD ORDERABLES F inal Result [facility]
[address] [place] [address], from Last 3 Months or Most Recently Relevant to Health Maintenance Insurance [facility] PPO Care Teams Plate Finisher Relationship Specialty Start Date End Date Inez Hart APRN [facility] [address] [address] [facility] [address] PCP - General Internal Medicine 07/02/24
== END 2025-06-21 23:59 ==
LOC: LAB.DROPOF 06-23 09:48
PROVIDERS: PCP Nurse Practitioner Family; Visit Provider Nurse Practitioner Family
DX: N39.0 Urinary tract infection, site not specified (principal)
CPT/HCPCS: 87086

== ENCOUNTER 2025-07-06 08:55 | Outpatient (CLI) | payer BC, SELFPAY ==
[2025-07-06 14:27] LABS: Microscopic, Urine URINE MICROSCOPIC (MICROSCOPIC)
[2025-07-06 15:11] LABS: Hematocrit 45.3 % (37.0-47.0); Hemoglobin 13.9 g/dL (12.2-16.2); Immature Granulocytes % 0.3 %; Mean Corpuscular HGB Conc 30.7 g/dL (31.8-35.4); Mean Corpuscular Hemoglobin 25.8 pg (27.0-31.2); Mean Corpuscular Volume 84.0 fl (81-99); Nucleated Red Blood Cells % 0 %; Platelet Count 381 K/mm3 (142-424); Red Blood Count 5.39 M/mm3 (4.20-5.40); Red Cell Distribution Width-SD 43.7 fL; White Blood Count 10.9 K/mm3 (4.8-10.8)
[2025-07-06 15:28] LABS: Alanine Aminotransferase 14 U/L (12-78); Albumin Level 4.2 g/dl (3.5-5.0); Albumin/Globulin Ratio 1.4 (1.1-1.8); Alkaline Phosphatase 85 U/L (38-126); Anion Gap 16.5 mEq/L (5-15); Aspartate Amino Transferase 21 U/L (14-36); Bilirubin,Total 1.1 mg/dl (0.2-1.3); Blood Urea Nitrogen 12 mg/dl (7-17); Calcium 9.5 mg/dl (8.4-10.2); Carbon Dioxide 26 mmol/L (22.0-30.0); Chloride 101 mmol/L (98-107); Creatinine,Serum 0.80 mg/dl (0.52-1.04); Estimated Glomerular Filt Rate 72 ml/min (>60); GFR (African American) 87 ML/MIN (>60); Globulin 3.1 g/dL (1.3-3.2); Glucose 79 mg/dl (74-100); Magnesium 1.7 mg/dl (1.6-2.3); Potassium 4.5 mmoL/L (3.5-5.1); Sodium 139 mmol/L (136-145); Total Protein,Serum 7.3 g/dl (6.3-8.2)
[2025-07-06 15:36] LABS: C-Reactive Protein 26.0 mg/L (0-4)
[2025-07-06 15:47] LABS: 25-OH Vitamin D, Total 14.0 ng/mL (30-100)
[2025-07-06 15:48] LABS: Bilirubin,Urine Negative (Negative); Color,Urine YELLOW (Yellow); Glucose,Urine (UA) Negative (Negative); Ketones,Urine Negative (Negative); Leukocyte Esterase,Urine 1+ (Negative); PH,Urine 6.0 (5.0-8.5); Protein,Urine Negative (Negative); Specific Gravity, Urine 1.020 (1.005-1.030); Urobilinogen,Urine 0.2 EU/dl (0.2)
[2025-07-06 17:54] LABS: Bacteria,Urine 4+ /lpf
[2025-07-06 17:55] LABS: Calcium Oxalate Crystals,Urine 3+ /lpf
--- OUTSIDE RECORDS SUMMARY | 2025-07-07 11:09 | XMS_ITS | Clinical Summary ---
Author Organization [facility] Address [address] [place] [address] Care Team Providers Care Doctor Of Naprapathy Name Role Phone Inez Hart APRN Primary Care Provider [phone] Allergies Active Allergy Reactions Criticality Noted Date [...] 5 Active ergocalciferol (ERGOCALCIFERO L) 1.25 MG (35838 UT) capsule Take 1 capsule by mouth [...] Care Team (Late st Contact Info) Description 08/05/2025 2:45 PM EDT Office Visit [facility] RHE[facility] [address] [address] Rainer Diaz, DEEP SUBMERGENCE VEHICLE CREWMEMBER [address] [address] Health Maintenance Due Date Last [...] ve Non-Reacti ve 11/03/2024 7:19 PM EST [facility] Hep A IgM Non-Reacti ve Non-Reacti ve 11/03/2024 7:19 PM EST [facility] Hep B C IgM Non-Reacti ve Non-Reacti ve 11/03/2024 7:19 PM EST [facility] Hepatitis C Ab Non-Reacti ve Non-Reacti ve 11/03/2024 7:19 PM EST [facility] Blood Venipuncture / Unknown 11/03/2024 10:23 AM EST 11/03/2024 10:23 AM EST Narrative [facility] - 11/03/2024 7:19 PM EST Results may be falsely decreased if patient taking Biotin. us Alex Ortiz DO LAB BLOOD ORDERABLES F inal Result [facility]
[address] [place] [address], from Last 3 Months or Most Recently Relevant to Health Maintenance Insurance [facility] PPO Care Teams Doctor Of Naprapathy Relationship Specialty Start Date End Date Inez Hart APRN [facility] [address] [address] [facility] [address] PCP - General Internal Medicine 07/02/24
--- OUTSIDE RECORDS SUMMARY | 2025-07-07 11:09 | XMS_ITS ---
Author Organization [facility] Address [address] [place] [id number] Care Team Providers Care Electrical Technician Instructor Name Role Phone Inez Hart APRN Primary Care Provider [phone] Rheumatology - External Fill Status:Enrolled (Active) Start date:06/22/2024 Enrollment date:06/22/2024 Enrollment reason:Identified as being on target medication Current support & services provided:Benefits Investigation, External Pharmacy Dispensing Linked medications:Risankizumab-rzaa (Active) Linked problems:Psoriatic arthritis (Active) Continued Care and Services Coordination
== END 2025-07-06 23:59 | disposition home or self-care (01) ==
LOC: LAB.DROPOF 07-07 10:47
PROVIDERS: PCP Nurse Practitioner Family; Visit Provider Nurse Practitioner Family
DX: N39.0 Urinary tract infection, site not specified (principal); M79.10 Myalgia, unspecified site
CPT/HCPCS: 80053; 81001; 82306; 83735; 85025; 86140; 87086; 87088; 87186

== ENCOUNTER 2025-08-12 10:35 | Outpatient (CLI) | payer BC, SELFPAY ==
--- NOTE | 2025-08-12 10:39 | US_ITS ---
FINAL REPORT TECHNIQUE: Sonographic images of the kidneys and retroperitoneum were obtained in the longitudinal and transverse planes. CLINICAL HISTORY: UTI FINDINGS: The right kidney measures 9.5 cm in [id number] length. No hydronephrosis, mass, or stone. Cortical echogenicity and thickness are normal. The left kidney measures 10.5 cm in [id number] length. No hydronephrosis, mass, or stone. Cortical echogenicity and thickness are normal. IMPRESSION: Morphologically normal kidneys bilaterally. Reviewed, Interpreted and Dictated by Olga Khoury MD Transcribed by Corazon Solomon Authenticated and [facility]
== END 2025-08-12 23:59 | disposition home or self-care (01) ==
LOC: RAD 10:36
PROVIDERS: PCP Nurse Practitioner Family; Visit Provider Urology
DX: N39.0 Urinary tract infection, site not specified (principal)
CPT/HCPCS: 76770